=== PATIENT | female | born 1970 | race Caucasian/White ===

== ENCOUNTER 2017-05-15 01:11 | Emergency (ER) | payer MEDICAID, SELFPAY ==
[2017-05-15 01:24] VITALS: BP 133/81; PULSE 72; RESP 18; TEMP 36.9; O2SAT 100; BMI 34.4
--- NOTE | 2017-05-15 01:43 | HMH.EDGENADL ---
ED Disposition Clinical Impression: Abscess of skin or subcutaneous tissue Qualifiers: Site of cutaneous abscess: extremity Site of cutaneous abscess of extremity: lower extremity Laterality: left Qualified Code(s): L02.416 - Cutaneous abscess of left lower limb Disposition: Home, Self-Care Condition on Discharge: Good Instructions: DI for Skin Abscess Additional Instructions: Additional instructions for ABSCESS: Day one and two: Remove the bandage and shower the area, leaving the packing in place. Gently blot dry. Apply a bandage. Day three: Follow-up with primary care physician, clinic, or Urgent [facility] for packing removal and culture results. Return to the emergency department if increasing pain, swelling, redness, redstreaks or fever greater than 101 degrees. Prescriptions: Clindamycin HCl [Clindamycin 300mg Cap] 300 mg PO QID #40 capsule Referrals: Asha Andrews APRN [Primary Care Provider] - - Critical Care Critical Care Time: No Attestation: On , the high probability of a clinically significant, sudden or life threatening deterioration of the following system(s) required my full and direct attention, intervention and personal management. The time I documented below is in addition to time spent performing reported procedures but includes the following listed in this critical care notation. Medical Decision Making Vital Signs: 05/15/17 01:24 Temperature 98.4 F Temperature Source Oral Pulse Rate [Right Brachial] 72 Respiratory Rate 18 Blood Pressure [Right Arm] 133/81 Blood Pressure Mean [Right Arm] 98 Blood Pressure Source [Right Arm] Automatic Cuff Blood Pressure Position [Right Arm] Sitting 02 Sat by Pulse Oximetry 100 Oxygen Delivery Method Room Air Orders (Tests/Meds): ED MEDICATIONS Discontinued Medications Generic Name Dose Route Start Last Admin Trade Name Lindsey PRN Reason Stop Dose Admin Clindamycin HCl 300 mg 05/15/17 02:33 Cleocin 150mg Capsule PO 05/15/17 02:34 ONCE ONE Lidocaine/Epinephrine 10 ml 05/15/17 01:49 Lidocaine 2% W/Epi 1:100,000 20ml Vial IJ 05/15/17 01:50 ONCE ONE ORDERS Category Date Time Status Wound Culture and Gram Stain Stat Micro 05/15/17 02:25 Received - Ryan Inquiry Pt receiving controlled substance: No General Adult HPI - General Chief complaint: Skin/Abscess/Foreign Body Stated complaint: BIOPSY SPOT LEFT LEG ? INFECTED Mode of Arrival: Ambulatory Limitations: No Limitations Description of Symptoms (Recalled from ER Triage Doc. by RN): C/O RASH AND HAD BIOPSY OF RASH ON LEFT LOWER LEG ON 05/05/17. SUTURES REMOVED ON 05/12/17. NOW WITH C/O POSSIBLE INFECTION TO BIOPSY SITE AND PAIN - History of Present Illness HPI narrative: The patient had a biopsy on her left leg due to a rash. She had stitches removed 5 days ago. 2 days ago she began having increasing redness, swelling and pain around the site of the biopsy. No fever. No drainage. - Related Data Home Medications Medication Instructions Recorded Confirmed Cetirizine HCl [Zyrtec] 10 mg PO DAILY 05/15/17 05/15/17 Cholecalciferol (Vitamin D3) 5,000 unit PO DAILY 05/15/17 05/15/17 [Vitamin D3 1,000 Unit Tab] Esomeprazole Magnesium [Nexium 40 mg PO DAILY 05/15/17 05/15/17 24Hr] Lisinopril [Lisinopril 10mg Tab] 10 mg PO DAILY 05/15/17 05/15/17 Lysine HCl [l-Lysine] 500 mg PO DAILY 05/15/17 05/15/17 Oxybutynin Chloride [Ditropan Xl] 5 mg PO DAILY 05/15/17 05/15/17 buPROPion HCl [Wellbutrin Xl] 450 mg PO DAILY 05/15/17 05/15/17 Previous Rx's Medication Instructions Recorded Clindamycin HCl [Clindamycin 300mg 300 mg PO QID #40 cap 05/15/17 Cap] Allergies Allergy/AdvReac Type Severity Reaction Status Date / Time No Known Allergies Allergy Verified 05/15/17 01:40 [facility] History I have reviewed the patient's past medical history: Yes Medical History: Denies:: Cancer, Diabetes Mellitus Type 1, Diabetes Mellit
== END 2017-05-15 03:07 | disposition home or self-care (01) ==
PROVIDERS: Emergency Provider Emergency Medicine; Family Provider Nurse Practitioner Family; PCP Nurse Practitioner Family
DX: L02.416 Cutaneous abscess of left lower limb (principal); I10 Essential (primary) hypertension
CPT/HCPCS: 10060; 87070; 87077; 87186; 87205; 99282; 99283

== ENCOUNTER → 2017-09-19 10:18 | Outpatient (CLI) | payer MEDICAID, SELFPAY ==
--- NOTE | 2017-09-19 10:22 | MM_ITS ---
MM Dig screening mamm BI w/CAD CAD Screening COMPARISON: Digital mammograms 09/17/2013 and analog mammograms 11/25/2009 INDICATION: The history sheet is not available for review TECHNIQUE: Standard CC and MLO images were obtained. R2 CAD reviewed. FINDINGS: The breasts are composed primarily of fat with minimal scattered fibroglandular densities noted. There is no interval change from the previous digital mammograms 09/17/2013 there is no suspicious lesion and there are no suspicious microcalcifications. There is a possible asymmetric density central portion of the left breast best seen on MLO projection and possibly in the outer quadrant of the breast on the CC projection. Recommend the patient return for spot compression MLO view and 90 degrees lateral view and spot CC view. Ultrasound may be necessary as well IMPRESSION: Fatty type breast parenchyma with possible asymmetric density left breast BI-RADS Category: 0 Need Additional Imaging Evaluation RECOMMENDED FOLLOW-UP: IMM - IMMEDIATE FOLLOW-UP RECOMMENDED (A letter has been sent to the patient regarding results of the study.)
== END ==
PROVIDERS: Family Provider Nurse Practitioner Family; PCP Nurse Practitioner Family; Visit Provider Nurse Practitioner Family
DX: Z12.31 Encounter for screening mammogram for malignant neoplasm of breast (principal)
CPT/HCPCS: 77067

== ENCOUNTER → 2017-10-12 14:55 | Outpatient (CLI) | payer MEDICAID, SELFPAY ==
--- NOTE | 2017-10-12 14:58 | MM_ITS ---
MM Dig mamm DX unilat LT CAD COMPARISON: Digital mammograms with CAD 09/19/2017 INDICATION: Evaluation of possible asymmetric density left breast TECHNIQUE: Spot compression MLO and CC views and 90 degrees lateral view FINDINGS: The previous noted questionable lesion appears to compress out on the additional views and there is no suspicious abnormality seen in this lady with primarily fatty type breast parenchyma. IMPRESSION: Negative problem-solving views recommend the patient continue with yearly screening mammography BI-RADS Category: 1 Negative RECOMMENDED FOLLOW-UP: 1YR - 1 YEAR FOLLOW-UP (A letter has been sent to the patient regarding results of the study.)
== END ==
PROVIDERS: Family Provider Nurse Practitioner Family; PCP Nurse Practitioner Family; Visit Provider Nurse Practitioner Family
DX: R92.2 Inconclusive mammogram (principal)
CPT/HCPCS: 77065

== ENCOUNTER → 2018-02-09 15:36 | Outpatient (CLI) | payer MEDICAID, SELFPAY ==
--- NOTE | 2018-02-09 15:38 | MR_ITS ---
MR lumbar spine wo con, MR 3-d myelogram/MRCP HISTORY: PT states low back pain, RT buttock and leg pain . RT leg and feet tingling. ITS.REASON: LOW BACK PAIN, RADICULOPATHY, SCIATICA ORDERING PHYSICIAN: Shari Birmingham PATIENT AGE: 47 years Comparison: None TECHNIQUE: Standard multiplanar multiecho sequences are performed without contrast. 3-D MIP and myelographic images are also rendered and reviewed FINDINGS: There is normal alignment. The spinal cord ends at the L1 level. T11-T12, T12-L1, and L1-L2 evident unremarkable appearance. L2-L3: Minimal concentric bulging disc with mild facet and ligamentum flavum hypertrophy with mild bilateral lateral recess and foraminal narrowing slightly greater on the right. L3-L4: Minimal concentric bulging disc with mild facet and ligamentum flavum hypertrophy with mild bilateral lateral recess and foraminal narrowing slightly greater on the left L4-5: Mild concentric bulging disc along with mild facet and ligamentum flavum hypertrophy with mild bilateral lateral recess and foraminal narrowing slightly greater on the right L5-S1: Mild concentric bulging disc along with facet and ligamentum hypertrophy. The bulging disc is eccentric towards the right causing moderate right lateral recess and foraminal narrowing abutting the anterior aspect of the right S1 nerve root. There is mild left foraminal narrowing and left lateral recess narrowing as well. No disc herniation or bony canal stenosis evident. IMPRESSION: 1. Multilevel mild bulging disc along with facet and ligamentum flavum hypertrophy causing lateral recess and foraminal narrowing. Please see above for detailed description at each level. 2. Mild concentric bulging disc at L5-S1 along with facet and ligamentum hypertrophy. The bulging disc is eccentric towards the right causing moderate right lateral recess and foraminal narrowing abutting the anterior aspect of the right S1 nerve root. There is mild left foraminal narrowing and left lateral recess narrowing as well 3. No disc herniation or canal stenosis
== END ==
PROVIDERS: Family Provider Nurse Practitioner Family; PCP Nurse Practitioner Family; Visit Provider Nurse Practitioner Family
DX: M54.17 Radiculopathy, lumbosacral region (principal); M54.31 Sciatica, right side
CPT/HCPCS: 72148; 76376

== ENCOUNTER 2018-03-14 16:30 | Outpatient (RCR) | payer MEDICAID, SELFPAY | END 2018-03-14 17:30 | disposition home or self-care (01) | LOC: PT 16:30 | PROVIDERS: Visit Provider Nurse Practitioner Family | DX: M54.5 Low back pain (principal); M51.36 Other intervertebral disc degeneration, lumbar region | CPT/HCPCS: 97010; 97012; 97014; 97110; 97140; 97163; 97164; G0283 ==

== ENCOUNTER → 2018-07-17 14:46 | Outpatient (POV) | payer MEDICAID, SELFPAY ==
[2018-07-17 15:13] VITALS: BP 122/78; PULSE 76; RESP 18; O2SAT 98
--- NOTE | 2018-07-18 13:58 | HMH.PMCON ---
Assessment and Plan (1) Degenerative disc disease, lumbar Current visit: Yes Status: Chronic Category: Medical Code(s): M51.36 - Other intervertebral disc degeneration, lumbar region (2) Lumbar radiculopathy Current visit: Yes Status: Chronic Category: Medical Code(s): M54.16 - Radiculopathy, lumbar region - Assessment and plan all Dx Assessment and Plan for all problems:: We will schedule an L4-L5 lumbar epidural steroid injection with the patient. I believe it would be beneficial. I will follow-up with the patient after her injection and reassess her symptoms at that time. Dr. Fitch has reviewed this note and agrees with this plan of care. This note was dictated using voice recognition software and may contain errors or omissions HPI - Data of Consult Consult date: 07/17/18 Requesting Physician: Daniela Hancock APRN Primary Care Provider: Asha Andrews APRN - Consult Narrative Reason for consult: Back pain History of present illness: Ms. Hernández is a 47 year old female who presents today for consultation in regards to her low back pain and right leg pain. Patient states standing and bending increases her pain while leaning over and rest decreases her pain she has numbness and tingling in her right leg. Patient has done physical therapy with minimal relief she is continuing a home stretching therapy. Patient is on anti-inflammatories. She rates her pain a 5 out of 10. She is not a surgical candidate at this time. Patient does have imaging showing degenerative disc disease lumbar spine. Patient has not had any epidural injections she is interested in pursuing this. CC: Daniela Hancock APRN [facility] [place] History I have reviewed the patient's past medical history: Yes Medical History: Reports:: Hyperlipidemia, Hypertension Denies:: Cancer, Diabetes Mellitus Type 1, Diabetes Mellitus Type 2, MRSA Laterality Cases: Right: Arthroscopy Knee Amputation: No Fractures: No - *Social History Smoking Status: Unknown if ever smoked Alcohol Intake: never *Occupational Status:: employed Housing: house Household Members: other *Travel in the last 8 weeks: None - Psychiatric History Expresses thoughts of harming self/others: None Suicide Plan Description: No Plan Family Hx:: Unable to obtain Review of Systems - Review of Systems ROS General: no recent weight change, no fever, no sleep disturbances Respiratory: no cough, no shortness of air, no recurring pulmonary infections Cardiovascular/Peripheral Vascular: No chest pain, No palpitations, no edema, no shortness of breath. Gastrointestinal: no incontinence, normal bowel movements reported Genitourinary: no incontinence Musculoskeletal: Back pain, right leg pain Psychiatric: normal mood/ affect Neurological: [denies weakness in extremities], [denies balance issues] Meds Home Medications Medication Instructions Recorded Confirmed Type Cetirizine HCl [Zyrtec] 10 mg PO DAILY 05/15/17 12/31/17 History Cholecalciferol (Vitamin D3) 5,000 unit PO DAILY 05/15/17 12/31/17 History [Vitamin D3 1,000 Unit Tab] Esomeprazole Magnesium [Nexium 40 mg PO DAILY 05/15/17 12/31/17 History 24Hr] Lisinopril [Lisinopril 10mg Tab] 10 mg PO DAILY 05/15/17 12/31/17 History Lysine HCl [l-Lysine] 500 mg PO DAILY 05/15/17 12/31/17 History Oxybutynin Chloride [Ditropan Xl] 5 mg PO DAILY 05/15/17 12/31/17 History buPROPion HCl [Wellbutrin Xl] 450 mg PO DAILY 05/15/17 12/31/17 History Meloxicam [Mobic] 15 mg PO DAILY 12/31/17 12/31/17 History Allergies Allergy/AdvReac Type Severity Reaction Status Date / Time No Known Allergies Allergy Verified 12/31/17 23:18 Objective Vital signs: Pulse Resp BP Pulse Ox 76 18 122/78 98 07/17/18 15:13 07/17/18 15:13 07/17/18 15:13 07/17/18 15:13 Narrative: Physical Exam General: Alert and oriented x3, no acute distress, pleasant and cooperative, [on room air] Lungs: Resps E/U,
== END ==
PROVIDERS: PCP Nurse Practitioner Family; Visit Provider Clinical Nurse Specialist Family Health
DX: M51.16 Intervertebral disc disorders with radiculopathy, lumbar region (principal)
CPT/HCPCS: 99202

== ENCOUNTER → 2018-08-21 09:58 | Outpatient (POV) | payer MEDICAID, SELFPAY ==
[2018-08-21 10:43] VITALS: BP 156/91; PULSE 67; RESP 18; O2SAT 98; BMI 38.3
--- NOTE | 2018-08-21 10:43 | HMH.PAINSOAP ---
[facility] Pain Management SOAP Note Subjective:: Patient is a pleasant 47-year-old white female who we are treating for low back pain with lumbar radiculopathy symptoms. Patient is status post her first L4-L5 lumbar epidural steroid injection she rates the pain a 2 out of 10 and states she did extremely well. She does have some days where she feels like the pain is returning she would like to repeat this given the efficacy of this she has had at least 80% relief of her symptoms. ROS General: no recent weight change, no fever, no sleep disturbances Respiratory: no cough, no shortness of air, no recurring pulmonary infections Cardiovascular/Peripheral Vascular: No chest pain, No palpitations, no edema, no shortness of breath. Gastrointestinal: no incontinence, normal bowel movements reported Genitourinary: no incontinence Musculoskeletal: Back pain, leg pain Psychiatric: normal mood/ affect Neurological: [denies weakness in extremities], [denies balance issues] Objective:: Physical Exam General: Alert and oriented x3, no acute distress, pleasant and cooperative, Lungs: Resps E/U, Symmetrical chest expansion, Eyes: PERRL Musculoskeletal: Flexion and extension of lumbar spine somewhat guarded secondary to pain, deep tendon reflexes normal, strength in upper and lower extremities [5/5], [abnormal gait noted] positive straight raise leg raise test on the right side at 30 degrees Neurological: speech clear, 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 I believe it would be beneficial given the efficacy of her last one. She is continuing her anti-inflammatories along with her home stretching program. She is not on any anticoagulation therapy. Dr. Fitch has reviewed this note and agrees with this plan of care. This note was dictated using voice recognition software and may contain errors or omissions
--- NOTE | 2018-08-21 10:46 | P.CONS_ITS ---
[facility] Pain Management SOAP Note Subjective:: Patient is a pleasant 47-year-old white female who we are treating for low back pain with lumbar radiculopathy symptoms. Patient is status post her first L4-L5 lumbar epidural steroid injection she rates the pain a 2 out of 10 and states she did extremely well. She does have some days where she feels like the pain is returning she would like to repeat this given the efficacy of this she has had at least 80% relief of her symptoms. ROS General: no recent weight change, no fever, no sleep disturbances Respiratory: no cough, no shortness of air, no recurring pulmonary infections Cardiovascular/Peripheral Vascular: No chest pain, No palpitations, no edema, no shortness of breath. Gastrointestinal: no incontinence, normal bowel movements reported Genitourinary: no incontinence Musculoskeletal: Back pain, leg pain Psychiatric: normal mood/ affect Neurological: [denies weakness in extremities], [denies balance issues] Objective:: Physical Exam General: Alert and oriented x3, no acute distress, pleasant and cooperative, Lungs: Resps E/U, Symmetrical chest expansion, Eyes: PERRL Musculoskeletal: Flexion and extension of lumbar spine somewhat guarded secondary to pain, deep tendon reflexes normal, strength in upper and lower extremities [5/5], [abnormal gait noted] positive straight raise leg raise test on the right side at 30 degrees Neurological: speech clear, business support equal, no gross sensory deficits Assessment:: Degenerative disc disease lumbar spine with lumbar radiculopathy symptoms Plan:: We will repeat her L4-L5 lumbar epidural steroid injection. I believe it would be beneficial given the efficacy of her last one. She is continuing her anti- inflammatories along with her home stretching program. She is not on any anticoagulation therapy. Dr. Fitch has reviewed this note and agrees with this plan of care. This note was dictated using voice recognition software and may contain errors or omissions
== END ==
PROVIDERS: PCP Nurse Practitioner Family; Visit Provider Clinical Nurse Specialist Family Health
DX: M51.16 Intervertebral disc disorders with radiculopathy, lumbar region (principal)
CPT/HCPCS: 99212

== ENCOUNTER → 2018-09-19 09:56 | Outpatient (POV) | payer MEDICAID, SELFPAY ==
[2018-09-19 10:11] VITALS: BP 129/88; PULSE 71; RESP 18; O2SAT 98; BMI 36.8
--- NOTE | 2018-09-19 10:21 | P.CONS_ITS ---
[facility] Pain Management SOAP Note Subjective:: Patient is a pleasant 48-year-old female who presents today for follow-up after her second epidural steroid injection. She rates the pain a 4 out of 10. She is having some increased right leg pain however that just began this morning. Patient overall doing much better she states she gets up to 80% relief with her epidural injections for up to 3 weeks. She would like to finish the series of 3. ROS General: no recent weight change, no fever, no sleep disturbances Respiratory: no cough, no shortness of air, no recurring pulmonary infections Cardiovascular/Peripheral Vascular: No chest pain, No palpitations, no edema, no shortness of breath. Gastrointestinal: no incontinence, normal bowel movements reported Genitourinary: no incontinence Musculoskeletal: Back pain, leg pain Psychiatric: normal mood/ affect Neurological: [denies weakness in extremities], [denies balance issues] Objective:: Physical Exam General: Alert and oriented x3, no acute distress, pleasant and cooperative, [on room air] Lungs: Resps E/U, Symmetrical chest expansion, Eyes: PERRL Musculoskeletal: Flexion and extension of lumbar spine somewhat guarded secondary to pain, deep tendon reflexes normal, strength in upper and lower extremities [5/5], slightly antalgic gait noted Neurological: speech clear, 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 She is not on any anticoagulation therapy. I will follow-up with her after her injection reassess her symptoms at that time. She is been instructed to call the office if she has any issues prior to her next appointment. Dr. Fitch has reviewed this note and agrees with this plan of care. This note was dictated using voice recognition software and may contain errors or omissions
== END ==
PROVIDERS: PCP Nurse Practitioner Family; Visit Provider Clinical Nurse Specialist Family Health
DX: M51.16 Intervertebral disc disorders with radiculopathy, lumbar region (principal)
CPT/HCPCS: 99212

== ENCOUNTER 2018-10-06 08:59 | Day surgery (SDC) | payer MEDICAID, SELFPAY ==
[2018-10-06 09:09] VITALS: BP 138/82; PULSE 80; RESP 16; TEMP 36.8; O2SAT 99; BMI 31.1
[2018-10-06 09:21] VITALS: BP 117/74; PULSE 81; RESP 18; TEMP 36.7; O2SAT 100; BMI 36.8
[2018-10-06 10:00] VITALS: BP 131/85; PULSE 70; RESP 18; O2SAT 98
[2018-10-06 10:01] VITALS: BP 132/87; PULSE 72; RESP 18; O2SAT 98
--- NOTE | 2018-10-06 10:01 | HMH.PMPROC ---
- Procedure Date: 10/06/18 Time: 10:01 Anesthesiologist:: Pal Fitch MD Complications:: None Pre-procedure Diagnosis:: Degenerative disc disease of lumbar spine with lumbar radiculopathy symptoms Post-procedure Diagnosis:: Same Indications for Procedure:: This patient is a pleasant 48-year-old white female who we are treating for low back pain with lumbar radiculopathy symptoms. She did very well with her second epidural steroid injection. She was 80% better. She still has some residual pain. We will do a third lumbar epidural steroid injection today to help her with her residual pain symptoms. Procedure Details:: Lumbar epidural steroid injection under fluoroscopy Informed consent was obtained and the risk and benefits of the procedure was explained to the patient. The patient was taken to the procedure room. The patient was placed prone on the procedure table. The patient was prepped and draped in sterile fashion. C-arm fluoroscopy was used to view the lumbar spine. Skin and subcutaneous tissues were anesthetized using lidocaine. I placed an 18-gauge epidural needle and advanced into the L4-L5 interspace using fluoroscopic guidance and [id number] to air. After confirmation of needle placement in the epidural space with dye I injected 2 mL of lidocaine 1.5% with Depo-Medrol 80 mg. Patient tolerated the procedure well with no complications. Plan and Disposition:: We will follow-up with her in 2 weeks. Will reevaluate symptoms at that time.
[2018-10-06 10:07] VITALS: BP 142/82; PULSE 71; RESP 16; TEMP 36.8; O2SAT 100
== END 2018-10-06 10:12 | disposition home or self-care (01) ==
LOC: SC.PAINP 09:00
PROVIDERS: PCP Nurse Practitioner Family; Visit Provider Anesthesiology
DX: M51.16 Intervertebral disc disorders with radiculopathy, lumbar region (principal)
CPT/HCPCS: 62323; J1040; Q9966

== ENCOUNTER → 2018-10-24 10:03 | Outpatient (POV) | payer MEDICAID, SELFPAY ==
[2018-10-24 10:38] VITALS: BP 143/91; PULSE 80; RESP 18; O2SAT 98; BMI 28.8
--- NOTE | 2018-10-24 12:18 | HMH.PAINSOAP ---
[facility] Pain Management SOAP Note Subjective:: Patient is a pleasant 48-year-old white female who presents today for follow-up of a lumbar epidural steroid injection. She is currently being treated for low back pain with lumbar radiculopathy. The patient has had 3 epidural steroid injections. With her first injection, she reports a three-week improvement in pain, and the same with the second injection. With her most recent injection, she reports that she had 2 weeks improvement in pain, with 80% relief. Today, however, she presents with new onset of pain to right lower back radiating into her right leg. She says that the pain worsens with ambulation and is different than the previous pain. She has attempted to use ice and heat, a home stretching program, as well as anti-inflammatories. She rates her pain a 6 out of 10 today. ROS General: no recent weight change, no fever, no sleep disturbances Respiratory: no cough, no shortness of air, no recurring pulmonary infections Cardiovascular/Peripheral Vascular: No chest pain, No palpitations, no edema, no shortness of breath. Gastrointestinal: no incontinence, normal bowel movements reported Genitourinary: no incontinence Musculoskeletal: [Back pain leg pain] Psychiatric: normal mood/ affect, [denies depression], [denies anxiety] Neurological: [denies weakness in extremities], [denies balance issues] Objective:: Physical Exam General: Alert and oriented x3, no acute distress, pleasant and cooperative, [on room air] Lungs: Resps E/U, Symmetrical chest expansion, Eyes: PERRL Musculoskeletal: Flexion and extension of bar spine somewhat guarded secondary to pain, deep tendon reflexes normal, strength in upper and lower extremities [5/5], [abnormal gait noted] positive Govind's test positive Joleen test positive SI joint compression test on the right side Neurological: speech clear, 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 Patient would benefit from this given her symptomology. We will schedule her for the procedure and follow-up with her afterwards to assess her symptoms at that time. She is been instructed to call the office if she has any questions or concerns prior to her next appointment. Dr. Fitch has reviewed this note and agrees with this plan of care. This note was dictated using voice recognition software and may contain errors or omissions
== END ==
PROVIDERS: PCP Nurse Practitioner Family; Visit Provider Clinical Nurse Specialist Family Health
DX: M51.16 Intervertebral disc disorders with radiculopathy, lumbar region (principal); M46.1 Sacroiliitis, not elsewhere classified
CPT/HCPCS: 99212

== ENCOUNTER → 2018-11-28 11:48 | Outpatient (POV) | payer MEDICAID, SELFPAY ==
[2018-11-28 11:57] VITALS: BP 140/78; PULSE 78; RESP 18; O2SAT 98; BMI 29.8
--- NOTE | 2018-11-28 12:02 | P.CONS_ITS ---
[facility] Pain Management SOAP Note Subjective:: Patient is a pleasant 48-year-old white female who presents today for follow-up. She is being treated for low back pain with radicular symptoms and pain to her right buttock. Patient had a recent SI joint injection and says that she got about 80% relief that lasted for about 5 days. She is now complaining of right hip pain and right buttock pain. Patient has also had lumbar epidural injections, for which she says that did not help with her pain in her right buttock. She would like to try another SI joint injection. She does rate her pain a 5 out of 10 today. She is continuing with anti-inflammatories and home stretching program. She does say that the home stretching program does seem to help her somewhat, but again she is not doing the exercises her pain returns. Patient's job entails sitting for prolonged periods. She says that she does try to stand and move around to ease the pain, but she is limited due to her job. Review of Systems General: No recent weight changes, no fever, no sleep disturbances Respiratory: No cough, no shortness of air, no recurring pulmonary infections Cardiovascular/peripheral vascular: No chest pain, no palpitations, no edema, no shortness of breath Gastrointestinal: No new onset incontinence, normal bowel movements reported Genitourinary: No new onset incontinence Musculoskeletal: Back pain, right buttock pain, right hip pain Psychiatric: Normal mood/affect Neurological: [Denies weakness in extremities], [denies balance issues] Objective:: Physical exam General: Alert and oriented x3, no acute distress, pleasant and cooperative, [on room air] Lungs: Respirations even and unlabored, symmetrical chest expansion Eyes: PERRL Musculoskeletal: Flexion and extension of lumbar spine somewhat guarded secondary to pain, deep tendon reflexes normal, strength in upper and lower extremities [5/5], slightly antalgic gait noted Neurological: Speech clear, accounts receivable coordinator equal, no gross sensory deficit Assessment:: Degenerative disc disease lumbar spine with lumbar radiculopathy, sacroiliitis, right greater trochanteric bursitis Plan:: We will schedule the patient for another right SI joint injection, along with a right greater trochanteric bursa injection. She did well with this previous injection, getting 80% relief. I think she would benefit from another injection. We will schedule her for the procedure and see her back in the office afterwards, to reassess her symptoms at that time. She is been instructed to call the office if she has any concerns prior to her next appointment. Dr. Fitch has reviewed this note and agrees with this plan of care. This note was dictated using voice recognition software and make contain errors or omissions.
== END ==
PROVIDERS: PCP Nurse Practitioner Family; Visit Provider Clinical Nurse Specialist Family Health
DX: M51.16 Intervertebral disc disorders with radiculopathy, lumbar region (principal); M46.1 Sacroiliitis, not elsewhere classified; M70.61 Trochanteric bursitis, right hip
CPT/HCPCS: 99212

== ENCOUNTER → 2019-01-01 15:45 | Outpatient (POV) | payer MEDICAID, SELFPAY ==
[2019-01-01 15:46] VITALS: BP 148/91; PULSE 68; RESP 18; O2SAT 98; BMI 36.8
--- NOTE | 2019-01-01 16:05 | HMH.PAINSOAP ---
[facility] Pain Management SOAP Note Subjective:: Patient is a pleasant 48-year-old white female who presents today for follow-up. She is being treated for low back pain and radicular symptoms along with pain in her right hip. She had a recent SI joint injections where she got 80% relief that lasted for several weeks. She is now complaining of right hip pain and right buttock pain. She is also had epidural injections that did not help as much. She would like to try another SI joint injection which I believe would be beneficial. She rates her pain a 5 out of 10 today. She is continuing anti-inflammatories and home stretching programs. She finished physical therapy earlier this year. She has had this pain for over 6 months. Patient's job entails sitting for long periods of time. ROS General: no recent weight change, no fever, no sleep disturbances Respiratory: no cough, no shortness of air, no recurring pulmonary infections Cardiovascular/Peripheral Vascular: No chest pain, No palpitations, no edema, no shortness of breath. Gastrointestinal: no incontinence, normal bowel movements reported Genitourinary: no incontinence Musculoskeletal: Right SI joint pain Psychiatric: normal mood/ affect Neurological: [denies weakness in extremities], [denies balance issues] Objective:: Physical Exam General: Alert and oriented x3, no acute distress, pleasant and cooperative, [on room air] Lungs: Resps E/U, Symmetrical chest expansion, Eyes: PERRL Musculoskeletal: Flexion and extension of lumbar spine somewhat guarded secondary to pain, deep tendon reflexes normal, strength in upper and lower extremities [5/5], antalgic gait noted, positive SI joint compression test positive Joleen test and positive Govind's test on the right side. 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 She may be a quarter lock candidate in the future. We discussed this briefly. She had good relief with her previous injections. Patient is continuing her anti-inflammatory regimen. I will follow-up with the patient after injection reassess her symptoms at that time she is instructed to call the office if she has any issues prior to her next appointment. Dr. Fitch has reviewed this note and agrees with this plan of care. This note was dictated using voice recognition software and may contain errors or omissions Pain Management Hx Components *Have you ever received a pneumonia vaccine?: No *Have you received a flu vaccine this season?: No - *Social History *Occupational Status:: other *Travel in the last 8 weeks: None
== END ==
PROVIDERS: PCP Nurse Practitioner Family; Visit Provider Clinical Nurse Specialist Family Health
DX: M51.16 Intervertebral disc disorders with radiculopathy, lumbar region (principal)
CPT/HCPCS: 99212

== ENCOUNTER → 2019-02-01 08:49 | Outpatient (POV) | payer MEDICAID, SELFPAY ==
[2019-02-01 09:27] VITALS: BP 131/80; PULSE 74; RESP 15; O2SAT 99; BMI 37.0
--- NOTE | 2019-02-01 09:53 | HMH.PAINSOAP ---
[facility] Pain Management SOAP Note Subjective:: Date of service 02/01/2019 Patient is a pleasant 48-year-old white female who presents today for follow-up. Patient is being treated for low back pain with lumbar radiculopathy symptoms to her right hip. Patient says that this has been ongoing for greater than a year. Patient has had an SI joint injection in the past where she got up to 80% relief for more than 3 weeks. Patient was scheduled for another SI joint injection, however, she was denied by her insurance. Patient says that her pain is getting worse, rating it a 7 out of 10 today. Patient says she is unable to stand and able to do dishes and is able to do activities. Patient says that it is taking her quality of life away. Patient says she does not understand that she is unable to get the injections patient is neuro with anti-inflammatories and home stretching program. She is also taking relief. She tried ice and heat therapies. Patient says she would just like some relief. Patient has done little to no relief with conservative therapies. Review of Systems General: No recent weight changes, no fever, no sleep disturbances Respiratory: No cough, no shortness of air, no recurring pulmonary infections Cardiovascular/peripheral vascular: No chest pain, no palpitations, no edema, no shortness of breath Gastrointestinal: No new onset incontinence, normal bowel movements reported Genitourinary: No new onset incontinence Musculoskeletal: Back pain, right hip pain Psychiatric: Normal mood/affect Neurological: [Denies weakness in extremities], [denies balance issues] Objective:: Physical exam General: Alert and oriented x3, no acute distress, pleasant and cooperative, [on room air] Lungs: Respirations even and unlabored, symmetrical chest expansion Eyes: PERRL Musculoskeletal: Flexion and extension of lumbar spine somewhat guarded secondary to pain, deep tendon reflexes normal, strength in upper and lower extremities [5/5], antalgic gait noted, positive test, positive distraction test, positive compression test Neurological: Speech clear, chassis driver equal, no gross sensory deficit Assessment:: Right sacroiliitis and right trochanteric bursitis Plan:: The patient has tried and failed conservative therapies. The patient is getting very stressed, as she is unable to perform any normal functions as before. Patient is notably in pain today during her assessment. I do think medically beneficial to the patient to receive a right SI joint injection and a right bursa injection. The therapies that she has continued with her anti-inflammatories, [id number] oral medications ice and heat therapies, and a home stretching program. She does have notable point tenderness noted over her right SI joint and her right hip. We will try to schedule patient again for a right SI joint injection and right trochanteric bursa injection. We will see the patient back in clinic following the procedure to reassess her symptoms. She has been instructed to contact the clinic if she has any concerns before her next appointment. Dr. Fitch has reviewed this note and agrees with this plan of care. This note was dictated using voice recognition software and make contain errors or omissions. [facility] History Medical History: Reports:: Hyperlipidemia, Hypertension Denies:: Cancer, Diabetes Mellitus Type 1, Diabetes Mellitus Type 2, MRSA, Seizures *Have you ever received a pneumonia vaccine?: No *Have you received a flu vaccine this season?: No Other Medical History: Denies: Blood Transfusion Reaction Laterality Cases: Right: Arthroscopy Knee Amputation: No Fractures: No - *Social History Smoking Status: Never smoker Alcohol Intake: never *Occupational Status:: other Housing: house Household Members: significant other *Travel in the last 8 weeks: None Family Hx:: Unable to obtain
--- NOTE | 2019-02-01 09:58 | P.CONS_ITS ---
[facility] Pain Management SOAP Note Subjective:: Date of service 02/01/2019 Patient is a pleasant 48-year-old white female who presents today for follow-up. Patient is being treated for low back pain with lumbar radiculopathy symptoms to her right hip. Patient says that this has been ongoing for greater than a year. Patient has had an SI joint injection in the past where she got up to 80% relief for more than 3 weeks. Patient was scheduled for another SI joint injection, however, she was denied by her insurance. Patient says that her pain is getting worse, rating it a 7 out of 10 today. Patient says she is unable to stand and able to do dishes and is able to do activities. Patient says that it is taking her quality of life away. Patient says she does not understand that she is unable to get the injections patient is neuro with anti-inflammatories and home stretching program. She is also taking relief. She tried ice and heat therapies. Patient says she would just like some relief. Patient has done little to no relief with conservative therapies. Review of Systems General: No recent weight changes, no fever, no sleep disturbances Respiratory: No cough, no shortness of air, no recurring pulmonary infections Cardiovascular/peripheral vascular: No chest pain, no palpitations, no edema, no shortness of breath Gastrointestinal: No new onset incontinence, normal bowel movements reported Genitourinary: No new onset incontinence Musculoskeletal: Back pain, right hip pain Psychiatric: Normal mood/affect Neurological: [Denies weakness in extremities], [denies balance issues] Objective:: Physical exam General: Alert and oriented x3, no acute distress, pleasant and cooperative, [on room air] Lungs: Respirations even and unlabored, symmetrical chest expansion Eyes: PERRL Musculoskeletal: Flexion and extension of lumbar spine somewhat guarded secondary to pain, deep tendon reflexes normal, strength in upper and lower extremities [5/5], antalgic gait noted, positive test, positive distraction test, positive compression test Neurological: Speech clear, electronics recycler equal, no gross sensory deficit Assessment:: Right sacroiliitis and right trochanteric bursitis Plan:: The patient has tried and failed conservative therapies. The patient is getting very stressed, as she is unable to perform any normal functions as before. Patient is notably in pain today during her assessment. I do think medically beneficial to the patient to receive a right SI joint injection and a right bursa injection. The therapies that she has continued with her anti- inflammatories, [id number] oral medications ice and heat therapies, and a home stretching program. She does have notable point tenderness noted over her right SI joint and her right hip. We will try to schedule patient again for a right SI joint injection and right trochanteric bursa injection. We will see the patient back in clinic following the procedure to reassess her symptoms. She has been instructed to contact the clinic if she has any concerns before her next appointment. Dr. Fitch has reviewed this note and agrees with this plan of care. This note was dictated using voice recognition software and make contain errors or omissions. [facility] History Medical History: Reports:: Hyperlipidemia, Hypertension Denies:: Cancer, Diabetes Mellitus Type 1, Diabetes Mellitus Type 2, MRSA, Seizures *Have you ever received a pneumonia vaccine?: No *Have you received a flu vaccine this season?: No Other Medical History: Denies: Blood Transfusion Reaction Laterality Cases: Right: Arthroscopy Knee Amputation: No
== END ==
PROVIDERS: PCP Nurse Practitioner Family; Visit Provider Clinical Nurse Specialist Family Health
DX: M46.1 Sacroiliitis, not elsewhere classified (principal); M70.61 Trochanteric bursitis, right hip
CPT/HCPCS: 99212

== ENCOUNTER → 2019-02-26 13:34 | Outpatient (CLI) | payer MEDICAID, SELFPAY ==
--- NOTE | 2019-02-26 13:39 | MM_ITS ---
PROCEDURE: MM DIG MAMM DX UNILAT RT CAD CLINICAL INDICATION: ABN MAMM Additional views right breast for possible new asymmetric density COMPARISON: [facility] MM Dig screening mamm BI w/CAD from 09/19/2017 DXLT MM Dig mamm DX unilat LT CAD from 10/12/2017 MM DIG SCREENING MAMM BI W/CAD from 02/13/2019 TECHNIQUE: Standard CC and MLO images were obtained. R2 CAD reviewed. FINDINGS: Spot-compression MLO and CC views were obtained along the 90 degree lateral view. The density has well-defined smooth borders and was shown to be a tiny possibly complex cyst on ultrasound. I believe no additional evaluation is indicated. IMPRESSION: Essentially negative problem solving views and ultrasound as well BI-RAD Category: 2 Benign Finding(s) FOLLOW-UP: 1YR 1 Year Follow-up (A letter has been sent to the patient regarding results of the study.) Dictated by: Dr. Franco Galan MD 03/04/2019 18:[address] Franco Galan MD in [place] 03/04/2019 18:01
--- NOTE | 2019-02-26 13:39 | US_ITS ---
PROCEDURE: US BREAST RT COMPLETE CLINICAL INDICATION: ABN MAMM Possible change in asymmetric density right breast, problem solving views obtained showing a benign appearing nodular lesion with well-defined borders COMPARISON: No exams were available for comparison FINDINGS: There is a small hypoechoic cystic-appearing lesion at the 10 o'clock position somewhat near the nipple measuring 0.4 by 0.5 x 0.3 cm with faint internal echoes and this likely is a tiny cyst with internal debris. There there are 2 normal appearing nodes in the axilla. IMPRESSION: Ultrasound confirmation of benign-appearing and likely cystic lesion corresponding in size and location to the asymmetric density on mammogram and no additional evaluation is indicated Dictated by: Dr. Franco Galan MD 03/04/2019 17:[address] Franco Galan MD in [facility] 03/04/2019 17:57
== END ==
PROVIDERS: PCP Nurse Practitioner Family; Visit Provider Nurse Practitioner Family
DX: R92.2 Inconclusive mammogram (principal)
CPT/HCPCS: 76641; 77065

== ENCOUNTER → 2019-03-13 08:34 | Outpatient (POV) | payer MEDICAID, SELFPAY ==
[2019-03-13 08:52] VITALS: BP 150/87; PULSE 76; RESP 18; O2SAT 98; BMI 35.0
--- NOTE | 2019-03-13 15:49 | P.CONS_ITS ---
[facility] Pain Management SOAP Note Subjective:: Patient is a pleasant 48-year-old white female who presents today for follow-up after SI joint injection. Patient rates her pain a 4 out of 10. She did not get much relief from this SI joint injection. Patient gets good relief from SI joint injections up to 80% for more than 3 weeks however it seemingly getting worse and worse. Patient is not getting the same relief with the injections that she used to. She does have a positive Kirstin's test Joleen test and SI joint compression test. Patient and I have talked about a corner lock and she has watched the information on is not. She would like to proceed with this I do believe it would be beneficial. She is tried ice and heat therapies. She is tried and failed anti-inflammatories. She is continuing a home stretching program. She has failed physical therapy. She is had this pain for over a year most of her pain is on her right SI joint. ROS General: no recent weight change, no fever, no sleep disturbances Respiratory: no cough, no shortness of air, no recurring pulmonary infections Cardiovascular/Peripheral Vascular: No chest pain, No palpitations, no edema, no shortness of breath. Gastrointestinal: no new onset incontinence, normal bowel movements reported Genitourinary: no new onset incontinence Musculoskeletal: SI pain Psychiatric: normal mood/ affect Neurological: [denies new onset weakness in extremities], [denies new onset balance issues] Objective:: Physical Exam General: Alert and oriented x3, no acute distress, pleasant and cooperative, [on room air] Lungs: Resps E/U, Symmetrical chest expansion, Eyes: PERRL Musculoskeletal: Flexion and extension of lumbar spine somewhat guarded secondary to pain, deep tendon reflexes normal, strength in upper and lower extremities [5/5], [abnormal gait noted] Neurological: speech clear, gear coding machine operator equal, no gross sensory deficits Assessment:: Chronic sacroiliitis Plan:: We will set the patient up for a percutaneous SI joint fusion on the right side. I will follow-up with the patient after this reassess her symptoms at that time she is not on any anticoagulation therapy. Dr. Fitch has reviewed this note and agrees with this plan of care. This note was dictated using voice recognition software and may contain errors or omissions [facility] History I have reviewed the patient's past medical history: Yes Medical History: Reports:: Hyperlipidemia, Hypertension Denies:: Cancer, Diabetes Mellitus Type 1, Diabetes Mellitus Type 2, MRSA, Seizures *Have you ever received a pneumonia vaccine?: No *Have you received a flu vaccine this season?: No Other Medical History: Denies: Blood Transfusion Reaction Laterality Cases: Right: Arthroscopy Knee Amputation: No Fractures: No - *Social History Smoking Status: Never smoker Alcohol Intake: never *Occupational Status:: other Housing: house Household Members: significant other *Travel in the last 8 weeks: None Family Hx:: Unable to obtain
== END ==
PROVIDERS: PCP Nurse Practitioner Family; Visit Provider Clinical Nurse Specialist Family Health
DX: M46.1 Sacroiliitis, not elsewhere classified (principal)
CPT/HCPCS: 99212

== ENCOUNTER → 2019-06-14 15:48 | Outpatient (CLI) | payer MEDICAID, SELFPAY ==
[2019-06-14 16:07] LABS: Basophils % 0.6 % (0.1-2.0); Eosinophils # 0.1 K/mm3 (0.0-0.4); Eosinophils % 2.6 % (0.1-12.0); Hematocrit 42.6 % (37.0-47.0); Hemoglobin 14.3 g/dL (12.2-16.2); Lymphocytes # 2.6 K/mm3 (0.7-4.5); Lymphocytes % 46.3 % (10-50); Mean Corpuscular HGB Conc 33.6 g/dL (31.8-35.4); Mean Corpuscular Hemoglobin 32.3 pg (27.0-31.2); Mean Corpuscular Volume 96.2 fl (81-99); Mean Platelet Volume 8.1 fl (7.4-10.4); Monocytes # 0.5 K/mm3 (0.1-1.0); Neutrophils # 2.3 K/mm3 (1.8-7.8); Neutrophils % 41.5 % (37.0-80.0); Platelet Count 273 K/mm3 (142-424); Red Blood Count 4.43 M/mm3 (4.20-5.40); Red Cell Distribution Width 12.5 % (11.5-17.5); White Blood Count 5.6 K/mm3 (4.8-10.8)
[2019-06-14 16:36] LABS: Anion Gap 12.7 mEq/L (5-15); Blood Urea Nitrogen 19 mg/dL (7-18); Calcium 8.9 mg/dL (8.5-10.1); Carbon Dioxide 29 mmol/L (21.0-32.0); Chloride 105 mmol/L (98-107); Creatinine,Serum 0.69 mg/dL (0.55-1.02); Estimated Glomerular Filt Rate 90 ml/min (>60); GFR (African American) 109 ML/MIN (>60); Glucose 69 mg/dL (74-106); Potassium 3.7 mmoL/L (3.5-5.1); Sodium 143 mmol/L (136-145)
== END ==
PROVIDERS: Visit Provider Clinical Nurse Specialist Family Health
DX: Z01.818 Encounter for other preprocedural examination (principal)
CPT/HCPCS: 36415; 80048; 85025

== ENCOUNTER → 2019-07-02 10:43 | Outpatient (POV) | payer MEDICAID, SELFPAY ==
[2019-07-02 11:16] VITALS: BP 149/95; PULSE 72; RESP 18; O2SAT 99; BMI 35.2
--- NOTE | 2019-07-02 11:29 | P.CONS_ITS ---
[facility] Pain Management SOAP Note Subjective:: Patient is a pleasant 48-year-old white female who presents today for follow-up after a pain tach SI joint fusion of her right SI joint. Patient rates her pain a 4 out of 10 however all of her pain from her SI joint has resolved it is just in her hip at this time. Patient is taking Tylenol for pain relief but overall doing well. ROS General: no recent weight change, no fever, no sleep disturbances Respiratory: no cough, no shortness of air, no recurring pulmonary infections Cardiovascular/Peripheral Vascular: No chest pain, No palpitations, no edema, no shortness of breath. Gastrointestinal: no new onset incontinence, normal bowel movements reported Genitourinary: no new onset incontinence Musculoskeletal: Right hip pain Psychiatric: normal mood/ affect, Neurological: [denies new onset weakness in extremities], [denies new onset balance issues] Objective:: Physical Exam General: Alert and oriented x3, no acute distress, pleasant and cooperative, [on room air] Lungs: Resps E/U, Symmetrical chest expansion, Eyes: PERRL Musculoskeletal: Range of motion right hip guarded secondary to pain, deep tendon reflexes normal, strength in upper and lower extremities [5/5], antalgic gait noted Neurological: speech clear, exchange engineer equal, no gross sensory deficits Assessment:: Chronic sacroiliitis, right SI joint stabilization Plan:: I will follow-up with the patient in 3 weeks just to ensure that she is doing well. She is been instructed to call the office if she has any issues prior to her next appointment. Dr. Fitch has reviewed this note and agrees with this plan of care. This note was dictated using voice recognition software and may contain errors or omissions [facility] History I have reviewed the patient's past medical history: Yes Medical History: Reports:: Depression, Gastroesophageal Reflux Disease(GERD), Hyperlipidemia, Hypertension, MRSA Denies:: Cancer, Diabetes Mellitus Type 1, Diabetes Mellitus Type 2, Internal Pacemaker, Seizures *Have you ever received a pneumonia vaccine?: Yes *Have you received a flu vaccine this season?: Yes Other Medical History: Denies: Blood Transfusion Reaction Laterality Cases: Right: Arthroscopy Knee Other Surgeries: No: Pacemaker Amputation: No Fractures: No - *Social History Smoking Status: Never smoker Alcohol Intake: never Substance Use Type: denies use *Occupational Status:: other Housing: house Household Members: significant other *Travel in the last 8 weeks: None - Psychiatric History Pschychiatric History:: Reports:: Depression Family Hx:: Unable to obtain
== END ==
PROVIDERS: PCP Nurse Practitioner Family; Visit Provider Clinical Nurse Specialist Family Health
DX: M46.1 Sacroiliitis, not elsewhere classified (principal); M51.16 Intervertebral disc disorders with radiculopathy, lumbar region
CPT/HCPCS: 99212

== ENCOUNTER → 2019-10-08 08:50 | Outpatient (POV) | payer MEDICAID, SELFPAY ==
[2019-10-08 09:02] VITALS: BP 133/85; PULSE 69; RESP 18; TEMP 36.6; O2SAT 99; BMI 34.4
--- NOTE | 2019-10-09 08:37 | HMH.PAINSOAP ---
[facility] Pain Management SOAP Note Subjective:: Pleasant 49-year-old white female who presents today for follow-up. Patient had a pain tech stabilization of her right SI joint and did well with this. Her pain has migrated now into her hip and down into her piriformis muscle. She rates her pain a 4-10. Patient and I discussed her right greater trochanteric bursa injection and a right piriformis injection. She is interested in pursuing this. ROS General: no recent weight change, no fever, no sleep disturbances Respiratory: no cough, no shortness of air, no recurring pulmonary infections Cardiovascular/Peripheral Vascular: No chest pain, No palpitations, no edema, no shortness of breath. Gastrointestinal: no new onset incontinence, normal bowel movements reported Genitourinary: no new onset incontinence Musculoskeletal: Right hip pain Psychiatric: normal mood/ affect, Neurological: [denies new onset weakness in extremities], [denies new onset balance issues] Objective:: Physical Exam General: Alert and oriented x3, no acute distress, pleasant and cooperative, [on room air] Lungs: Resps E/U, Symmetrical chest expansion, Eyes: PERRL Musculoskeletal: Flexion and extension of lumbar spine somewhat guarded secondary to pain, deep tendon reflexes normal, strength in upper and lower extremities [5/5], [abnormal gait noted] Neurological: speech clear, ethylene oxide panelboard operator equal, no gross sensory deficits Assessment:: Piriformis pain, right hip pain, bursitis Plan:: Schedule the patient for right piriformis and right greater trochanteric bursa injection. She is been instructed to call the office if she has any issues prior to her next appointment. Dr. Fitch has reviewed this note and agrees with this plan of care. This note was dictated using voice recognition software and may contain errors or omissions [facility] History I have reviewed the patient's past medical history: Yes Medical History: Reports:: Depression, Gastroesophageal Reflux Disease(GERD), Hyperlipidemia, Hypertension, MRSA Denies:: Cancer, Diabetes Mellitus Type 1, Diabetes Mellitus Type 2, Internal Pacemaker, Seizures *Have you ever received a pneumonia vaccine?: Yes *Have you received a flu vaccine this season?: Yes Other Medical History: Denies: Blood Transfusion Reaction Laterality Cases: Right: Arthroscopy Knee Other Surgeries: No: Pacemaker Amputation: No Fractures: No - *Social History Smoking Status: Never smoker Alcohol Intake: never Substance Use Type: denies use *Occupational Status:: other Housing: house Household Members: significant other *Travel in the last 8 weeks: None - Psychiatric History Pschychiatric History:: Reports:: Depression Family Hx:: Unable to obtain
== END ==
PROVIDERS: PCP Nurse Practitioner Family; Visit Provider Clinical Nurse Specialist Family Health
DX: G57.01 Lesion of sciatic nerve, right lower limb (principal); M71.9 Bursopathy, unspecified
CPT/HCPCS: 99212

== ENCOUNTER 2019-10-19 09:38 | Day surgery (SDC) | payer MEDICAID, SELFPAY ==
[2019-10-19 09:57] VITALS: BP 149/92; PULSE 74; RESP 18; TEMP 36.6; O2SAT 99; BMI 44.9
--- NOTE | 2019-10-19 10:36 | HMH.PMPROC ---
- Procedure Date: 10/19/19 Time: 10:44 Anesthesiologist:: Pal Fitch MD Complications:: None Pre-procedure Diagnosis:: Right hip pain with trochanteric bursitis and sciatica with piriformis syndrome Post-procedure Diagnosis:: Same Indications for Procedure:: Patient is a pleasant 49-year-old white female who we are treating for right hip pain with trochanteric bursitis and sciatica. She is status post SI joint stabilization with a [facility] system. She is doing well with this. We will do right sciatic nerve/piriformis muscle injection and trochanteric bursa injection today. Procedure Details:: Trochanteric bursa injection and sciatic nerve/piriformis muscle injection Informed consent was obtained and the risk and benefits of the procedure was explained to the patient. The patient was taken to the procedure room. The right hip was prepped using ChloraPrep. The skin and subcutaneous tissues were anesthetized using lidocaine. I placed a 22-gauge spinal needle and advanced under fluoroscopic guidance until it contacted the right greater trochanter. Needle placement was confirmed with dye. After this I injected bupivacaine 0.25% 5 mL and Depo-Medrol 40 mg into the right trochanteric bursa. A 25-gauge needle was then inserted into the right piriformis muscle into the area of the right sciatic nerve we then injected 10 mL bupivacaine 0.25% Depo-Medrol 40 mg into the area of the right sciatic nerve and piriformis muscle. Patient tolerated the procedure well with no complications. Plan and Disposition:: We will follow-up with her in 2 weeks. Will reevaluate her symptoms at that time. We did assess her implant for SI joint stabilization which seems to be in good position.
[2019-10-19 10:43] VITALS: BP 138/89; PULSE 85; RESP 18; O2SAT 98
[2019-10-19 10:44] VITALS: BP 138/78; PULSE 85; RESP 18; O2SAT 98
[2019-10-19 10:55] VITALS: BP 162/97; PULSE 67; RESP 20; O2SAT 98
== END 2019-10-19 10:56 | disposition home or self-care (01) ==
LOC: SC.PAINP 09:39
PROVIDERS: PCP Nurse Practitioner Family; Visit Provider Anesthesiology
DX: M70.61 Trochanteric bursitis, right hip (principal); M54.31 Sciatica, right side; I10 Essential (primary) hypertension; E78.5 Hyperlipidemia, unspecified; F32.9 Major depressive disorder, single episode, unspecified; Z87.39 Personal history of other diseases of the musculoskeletal system and connective tissue; Z79.899 Other long term (current) drug therapy; M25.551 Pain in right hip
CPT/HCPCS: 20552; 20610; 64445; 77002; J1030; Q9966

== ENCOUNTER 2019-11-07 12:56 | Emergency (ER) | payer MEDICAID, SELFPAY ==
[2019-11-07 13:46] VITALS: BP 127/82; PULSE 74; RESP 19; TEMP 36.8; O2SAT 98; BMI 35.6
--- NOTE | 2019-11-07 14:11 | HMH.EDUTC ---
[facility] [place] Disposition Clinical Impression: Dizziness Disposition: Home, Self-Care Condition on Discharge: Good Instructions: Vertigo, Meclizine Additional Instructions: Take medication as prescribed Follow up with PCP if no improvement or any worsening of symptoms Return if needed Straight to ER if any life threatening symtpoms Prescriptions: Meclizine HCl [Meclizine 25mg Tab] 25 mg PO TID PRN 10 Days #30 tab PRN Reason: Dizziness Transmission Status: Received by [facility] Mometasone Furoate [Nasonex] 2 sprays NS DAILY #1 spray.pump Transmission Status: Received by [facility] Referrals: Shari Birmingham [Primary Care Provider] - As needed Time of Disposition: 14:22 Medical Decision Making - Ryan Inquiry Pt receiving controlled substance: No Ryan was queried for this patient: No Vital Signs: 11/07/19 13:46 11/07/19 14:42 Temperature 98.2 F 98.2 F Temperature Source Oral Pulse Rate 74 Pulse Rate [Right Brachial] 74 Respiratory Rate 19 19 Blood Pressure 127/82 Blood Pressure [Right Arm] 127/82 Blood Pressure Mean [Right Arm] 97 Blood Pressure Source [Right Arm] Automatic Cuff Blood Pressure Position [Right Arm] Sitting 02 Sat by Pulse Oximetry 98 Oxygen Delivery Method Room Air Orders (Tests/Meds): ED MEDICATIONS Discontinued Medications Generic Name Dose Route Start Last Admin Trade Name Xaviq PRN Reason Stop Dose Admin Meclizine HCl 25 mg 11/07/19 14:17 11/07/19 14:15 Antivert 25mg Tablet PO 11/07/19 14:18 25 mg ONCE ONE Administration Medical Decision Narrative: After medication patient states that she feels much better and dizziness is now improved, Reports she has a history of dizziness and has been out of her Meclizine that she normally takes for it [facility] [place] HPI - General Stated complaint: Dizzy spell Time Seen by Provider: 11/07/19 14:11 Mode of Arrival: Ambulatory Source of Information: Patient Limitations: No Limitations Description of Symptoms (Recalled from Triage Doc. by RN): PATIENT C/O DIZZINESS THAT STARTED YESTERDAY HEENT Symptoms (Recalled from RN notes): Yes Resp Symptoms (Recalled from RN notes): No Skin Symptoms (Recalled from RN notes): No MS Symptoms (Recalled from RN notes): No Functional Status (Recalled from RN notes): WNL - History of Present Illness Provider Complaint: Patient states that she has a history of inner ear problems states that yesterday she bent over at work and got dizzy and ever since she has been having some dizziness when she bends over or moves too quickly State that she did this before and had to take meclizine but she is out of the medication so she came in to see if she could get some - Related Data Home Medications Medication Instructions Recorded Confirmed Cetirizine HCl [Zyrtec] 10 mg PO DAILY 05/15/17 10/19/19 Cholecalciferol (Vitamin D3) 5,000 unit PO DAILY 05/15/17 10/19/19 [Vitamin D3 1,000 Unit Tab] Esomeprazole Magnesium [Nexium 40 mg PO DAILY 05/15/17 10/19/19 24Hr] Lysine HCl [l-Lysine] 500 mg PO DAILY 05/15/17 10/19/19 Oxybutynin Chloride [Ditropan Xl] 5 mg PO DAILY 05/15/17 10/19/19 buPROPion HCL [Wellbutrin Xl] 450 mg PO DAILY 05/15/17 10/19/19 lisinopriL [Lisinopril 10mg Tab] 10 mg PO DAILY 05/15/17 10/19/19 Meloxicam [Mobic] 15 mg PO DAILY 12/31/17 10/19/19 Rosuvastatin Calcium 10 mg PO HS 07/28/18 10/19/19 Acyclovir [Zovirax] 1 applic TOPICAL 5XD 02/13/19 10/19/19 predniSONE [Prednisone 10mg Tab 10 mg PO UD DOSE PK 10/19/19 10/19/19 Dose-Pack] Previous Rx's Medication Instructions Recorded Ibuprofen [Ibuprofen 600mg 600 mg PO Q6HP PRN #30 tab 11/23/18 Tablet] Ibuprofen [Ibuprofen 600mg 600 mg PO Q6HP PRN #30 tab 11/29/18 Tablet] Ondansetron [Zofran 4mg ODT] 4 mg PO Q6H PRN #12 tab.rapdis 06/17/19 Promethazine HCl [Phenergan 12.5mg 12.5 mg PO Q6H PRN #12 tab 06/17/19 tablet] Meclizine HCl [Meclizine 25mg Tab] 25 mg PO TID PRN 10 Days #30 t
[2019-11-07 14:42] VITALS: BP 127/82; PULSE 74; RESP 19; TEMP 36.8; O2SAT 98
== END 2019-11-07 14:46 | disposition home or self-care (01) ==
PROVIDERS: Emergency Provider Nurse Practitioner; PCP Nurse Practitioner Family
DX: R42 Dizziness and giddiness (principal); K21.9 Gastro-esophageal reflux disease without esophagitis; E78.5 Hyperlipidemia, unspecified; I10 Essential (primary) hypertension; F33.1 Major depressive disorder, recurrent, moderate; Z79.899 Other long term (current) drug therapy
CPT/HCPCS: 99201

== ENCOUNTER → 2019-11-12 08:41 | Outpatient (POV) | payer MEDICAID, SELFPAY ==
--- NOTE | 2019-11-12 | XR_ITS ---
PROCEDURE: XR HIP RT 2-3V W/PELVIS CLINICAL INDICATION: Right hip pain COMPARISON: [facility] (SINGLE VIEW) from 10/15/2016 FINDINGS: No obvious fracture or dislocation. A small os acetabulum as a normal variant. There is an IUD in place. Small spurs noted along the right SI joint inferiorly. There is a small sclerotic density along the mid aspect of the right SI joint slightly medial to the joint. IMPRESSION: No acute finding of the hip. Mild degenerative change. Osteoarthritic change of the right SI joint with sclerotic density overlying the SI joint centrally etiology indeterminate and may be better evaluated with CT if clinically warranted Dictated by: Celio Fu MD 11/12/2019 14:52 Electronically signed by Celio Fu MD in [place] 11/12/2019 14:52
[2019-11-12 09:00] VITALS: BP 147/94; PULSE 70; RESP 18; O2SAT 99; BMI 35.6
--- NOTE | 2019-11-12 09:02 | P.CONS_ITS ---
[facility] Pain Management SOAP Note Subjective:: Patient is a pleasant 49-year-old white female who presents today for follow-up after right trochanteric bursa injection and piriformis muscle injection. Patient states that the pain going down her leg has improved however her pain in her joint has become constant. She rates it a 4 out of 10. Patient is complaining mostly of right hip pain within the joint. It is very focal. We she does not have any x-rays we will send her for some diagnostic imaging. She is currently in physical therapy at this time. ROS General: no recent weight change, no fever, no sleep disturbances Respiratory: no cough, no shortness of air, no recurring pulmonary infections Cardiovascular/Peripheral Vascular: No chest pain, No palpitations, no edema, no shortness of breath. Gastrointestinal: no new onset incontinence, normal bowel movements reported Genitourinary: no new onset incontinence Musculoskeletal: Right hip pain Psychiatric: normal mood/ affect Neurological: [denies new onset weakness in extremities], [denies new onset balance issues] Objective:: Physical Exam General: Alert and oriented x3, no acute distress, pleasant and cooperative, [on room air] Lungs: Resps E/U, Symmetrical chest expansion, Eyes: PERRL Musculoskeletal: Flexion and extension of lumbar spine somewhat guarded secondary to pain, deep tendon reflexes normal, strength in upper and lower extremities [5/5], [abnormal gait noted] Neurological: speech clear, adjunct trainer equal, no gross sensory deficits Assessment:: Right hip pain, sacroiliitis, bursitis and piriformis syndrome Plan:: We will schedule x-ray of the right hip for the patient to help determine pathology. Patient may need an orthopedic surgical consultation. I will follow-up with her after this reassess her symptoms at that time she has been instructed to call the office if she has any issues prior to next appointment. Dr. Fitch has reviewed this note and agrees with this plan of care. This note was dictated using voice recognition software and may contain errors or omissions [facility] History I have reviewed the patient's past medical history: Yes Medical History: Reports:: Depression, Gastroesophageal Reflux Disease(GERD), Hyperlipidemia, Hypertension Denies:: Cancer, Diabetes Mellitus Type 1, Diabetes Mellitus Type 2, Internal Pacemaker, MRSA, Seizures *Have you ever received a pneumonia vaccine?: Yes *Have you received a flu vaccine this season?: Yes Other Medical History: Denies: Blood Transfusion Reaction Laterality Cases: Right: Arthroscopy Knee Other Surgeries: No: Pacemaker Amputation: No Fractures: No - *Social History Smoking Status: Never smoker Alcohol Intake: never Substance Use Type: denies use *Occupational Status:: other Housing: house Household Members: significant other *Travel in the last 8 weeks: None - Psychiatric History Pschychiatric History:: Reports:: Depression Family Hx:: Unable to obtain
== END ==
LOC: SC.PAIN 08:43 → RAD 09:08
PROVIDERS: PCP Nurse Practitioner Family; Visit Provider Clinical Nurse Specialist Family Health
DX: M25.551 Pain in right hip (principal)
CPT/HCPCS: 73502; 99212

== ENCOUNTER 2019-11-19 16:00 | Outpatient (RCR) | payer MEDICAID, SELFPAY | END 2019-12-10 16:13 | disposition home or self-care (01) | LOC: PT.CARL 16:00 | PROVIDERS: PCP Nurse Practitioner Family; Visit Provider Nurse Practitioner Family | DX: M77.11 Lateral epicondylitis, right elbow (principal) | CPT/HCPCS: 97014; 97035; 97110; 97140; 97163; G0283 ==

== ENCOUNTER 2019-11-23 14:48 | Day surgery (SDC) | payer MEDICAID, SELFPAY ==
[2019-11-23 15:20] VITALS: BP 131/81; PULSE 80; RESP 18; TEMP 37.1; O2SAT 98; BMI 36.0
--- NOTE | 2019-11-23 15:20 | HMH.PMPROC ---
- Procedure Date: 11/23/19 Time: 15:20 Anesthesiologist:: Pal Fitch MD Complications:: None Pre-procedure Diagnosis:: Degenerative osteoarthritis right hip with chronic right hip pain Post-procedure Diagnosis:: Same Indications for Procedure:: This patient is a pleasant 49-year-old white female who we have been seeing for right hip pain. She is status post right trochanteric bursa injection and piriformis muscle injection. The sciatica type pain has improved however still has pain in the right hip joint. Especially with movement. We will do a right hip intra-articular injection today to help with her pain symptoms. Procedure Details:: Right hip intra-articular injection Informed consent was obtained risk and benefits of the procedure were explained to the patient. Patient was taken the procedure room. The right hip was prepped using ChloraPrep. A 22-gauge spinal needle was inserted and advanced into the right hip joint. Needle placement was confirmed with dye. After this we injected 5 mL bupivacaine 0.25% Depo-Medrol 40 mg into the right hip joint. The patient tolerated the procedure well with no complications. Plan and Disposition:: We will follow-up with her in 2 weeks. Will reevaluate symptoms at that time.
[2019-11-23 15:36] VITALS: BP 135/85
[2019-11-23 15:37] VITALS: BP 143/88; PULSE 85; RESP 18; O2SAT 99
[2019-11-23 15:49] VITALS: BP 129/66; PULSE 80; RESP 18; O2SAT 98
== END 2019-11-23 15:50 | disposition home or self-care (01) ==
LOC: SC.PAINP 14:48
PROVIDERS: PCP Nurse Practitioner Family; Visit Provider Anesthesiology
DX: M16.11 Unilateral primary osteoarthritis, right hip (principal); I10 Essential (primary) hypertension; E78.5 Hyperlipidemia, unspecified; F32.9 Major depressive disorder, single episode, unspecified; Z82.49 Family history of ischemic heart disease and other diseases of the circulatory system; Z79.899 Other long term (current) drug therapy
CPT/HCPCS: 20610; 77002; J1040; Q9966

== ENCOUNTER → 2019-12-07 10:11 | Outpatient (CLI) | payer MEDICAID, SELFPAY ==
--- NOTE | 2019-12-07 10:14 | MR_ITS ---
PROCEDURE: MR CERVICAL SPINE WO CON CLINICAL INDICATION: NECK PAIN Right arm pain numbness and tingling with numbness in the 4th 5th digits and tingling in the jaw all COMPARISON: No exams were available for comparison TECHNIQUE: Standard multiplanar multiecho sequences are performed without contrast. 3-D MIP and myelographic images are also rendered and reviewed FINDINGS: The craniocervical junction has an unremarkable appearance. There is reversal of the cervical lordosis.. Incidental note is made of partial empty sella. C2-C3: Unremarkable. C3-C4: Minimal bulging disc. C4-C5: Mild degenerative disc disease with mild bulging disc with ridging of the posterior endplate and mild left-sided uncovertebral hypertrophy with small disc osteophyte complex with mild left-sided lateral recess and foraminal narrowing. There is borderline canal stenosis at this level. C5-C6: There is degenerative disc disease with bulging disc with a broad-based central disc protrusion which is slightly eccentric toward the left. This is causing some impingement upon the left paracentral and anterior aspect of the cord with mild flattening of the cord with canal stenosis of 8 mm. There is thickening of the posterior longitudinal ligament at C5-C6. C6-C7: Degenerative disc disease with bulging disc and a small left paracentral disc herniation causing moderate compression upon the central and left aspect of the cord anteriorly with the canal at this level measuring 7 mm with flattening of the cord. There is thickening of the posterior longitudinal ligament at C6-C7. C7-T1: Unremarkable. There is an area of increased T2 signal involving the inferior aspect of the T3 vertebral body nonspecific but could be due to small hemangioma IMPRESSION: 1. C4-C5: Mild degenerative disc disease with mild bulging disc with ridging of the posterior endplate and mild left-sided uncovertebral hypertrophy with small disc osteophyte complex with mild left-sided lateral recess and foraminal narrowing. There is borderline canal stenosis at this level. 2. C5-C6: There is degenerative disc disease with bulging disc with a broad-based central disc protrusion which is slightly eccentric toward the left. This is causing some impingement upon the left paracentral and anterior aspect of the cord with mild flattening of the cord with canal stenosis of 8 mm. There is thickening of the posterior longitudinal ligament at C5-C6. 3. C6-C7: Degenerative disc disease with bulging disc and a small left paracentral disc herniation causing moderate compression upon the central and left aspect of the cord anteriorly with the canal at this level measuring 7 mm with flattening of the cord. There is thickening of the posterior longitudinal ligament at C6-C7. Dictated by: Celio Fu MD 12/10/2019 09:59 Electronically signed by Celio Fu MD in [place] 12/10/2019 09:59
== END ==
PROVIDERS: PCP Nurse Practitioner Family; Visit Provider Nurse Practitioner Family
DX: M79.601 Pain in right arm (principal)
CPT/HCPCS: 72141; 76376

== ENCOUNTER → 2019-12-13 13:33 | Outpatient (POV) | payer MEDICAID, SELFPAY ==
[2019-12-13 14:11] VITALS: BP 122/78; PULSE 62; RESP 18; O2SAT 99; BMI 35.2
--- NOTE | 2019-12-13 15:26 | HMH.PAINSOAP ---
[facility] Pain Management SOAP Note Subjective:: Patient is a pleasant 49-year-old white female who presents today for follow-up. She recently underwent a right intra-articular hip injection. She has been treated for chronic low back pain along with chronic sacroiliitis. Patient has had multiple SI joint injections with an SI stabilization procedure. She does say she got relief following the corner lock procedure. She then developed right hip pain. She says that she did not get any relief after the right intra-articular hip injection. She rates her pain a 7 out of 10. She says she is also continuing to have low back pain. She says that it is different than the pain she had before undergoing the SI stabilization procedure. Patient says that she has had 3 lumbar epidural steroid injections which do give her relief, however, only up to 2 to 3 days. She also says that she gets about 60% relief with those injections. Patient did undergo an MRI of her cervical spine which does show a herniated disc. Her primary care provider did consult Dr. Moreira, however, she has not been contacted by the clinic. He says she also has chronic mid back pain as well. Review of Systems General: No recent weight changes, no fever, no sleep disturbances Respiratory: No cough, no shortness of air, no recurring pulmonary infections Cardiovascular/peripheral vascular: No chest pain, no palpitations, no edema, no shortness of breath Gastrointestinal: No new onset incontinence, normal bowel movements reported Genitourinary: No new onset incontinence Musculoskeletal: Neck pain, mid back pain, low back pain, right hip pain Psychiatric: Normal mood/affect Neurological: [Denies weakness in extremities], [denies balance issues] Objective:: Physical exam General: Alert and oriented x3, no acute distress, pleasant and cooperative, [on room air] Lungs: Respirations even and unlabored, symmetrical chest expansion Eyes: PERRL Musculoskeletal: Flexion and extension of cervical, thoracic, lumbar spine somewhat guarded secondary to pain, deep tendon reflexes normal, strength in upper and lower extremities [5/5], [abnormal gait noted] Neurological: Speech clear, steamfitter apprentice equal, no gross sensory deficit Assessment:: 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 Moreira's office to see if we can get the patient in for an appointment any quicker. She would like to discuss the plan of care with Dr. Moreira before proceeding with any further treatments in our clinic. Following her appointment with Dr. Moreira, we will see the patient in the clinic. She and I did discuss possible implanted devices in the future for pain relief. Has been instructed to contact clinic if she has any concerns before her next appointment. The patient and I specifically discussed risk factors for COVID19. These risks include, but are not limited to age greater than 60, heart or lung disease, diabetes, immunosuppression, and travel. We also discussed NSAIDs may worsen COVID19 infection or symptoms. Patient should not use NSAIDs to treat COVID19 signs or symptoms. Patient was also informed that any type of corticosteroid of any form (oral or injection) will decrease the patient's immune system response and may increase the likelihood of COVID19 infection [address] symptoms[address]. Fitch has reviewed this note and agrees with this plan of care. This note was dictated using voice recognition software and make contain errors or omissions. [facility] History I have reviewed the patient's past medical history: Yes Medical History: Reports:: Depression, Gastroesophageal Reflux Disease(GERD), Hyperlipidemia, Hypertension Denies:: Cancer, Diabetes Mellitus Type 1, Diabetes Mellitus Type 2, Internal Pacemaker, MRSA, Seizures *Have you ever received a pneumonia vaccine?: Yes *Have you received a flu vaccine
== END ==
PROVIDERS: PCP Nurse Practitioner Family; Visit Provider Clinical Nurse Specialist Family Health
DX: M51.16 Intervertebral disc disorders with radiculopathy, lumbar region (principal); M50.10 Cervical disc disorder with radiculopathy, unspecified cervical region
CPT/HCPCS: 99212

== ENCOUNTER → 2019-12-26 08:07 | Outpatient (CLI) | payer MEDICAID, SELFPAY ==
--- NOTE | 2019-12-26 08:11 | XR_ITS ---
PROCEDURE: XR ELBOW RT MIN 3V CLINICAL INDICATION: elbow pain COMPARISON: No exams were available for comparison FINDINGS: No fracture or dislocation. No lytic or blastic change. There is normal mineralization. The joint spaces are well-preserved. No significant degenerative/arthritic changes. No erosive changes evident. Other findings:None. IMPRESSION: No acute findings. Dictated by: Celio Fu MD 12/26/2019 14:52 Celio Fu MD in [place] 12/26/2019 14:52
== END ==
PROVIDERS: PCP Nurse Practitioner Family; Visit Provider Orthopaedic Surgery
DX: M25.529 Pain in unspecified elbow (principal)
CPT/HCPCS: 73080

== ENCOUNTER 2020-01-15 09:00 | Outpatient (RCR) | payer MEDICAID, SELFPAY | END 2020-02-04 17:26 | disposition home or self-care (01) | LOC: PT.CARL 09:00 | PROVIDERS: PCP Nurse Practitioner Family; Visit Provider Neurological Surgery | DX: M50.10 Cervical disc disorder with radiculopathy, unspecified cervical region (principal) | CPT/HCPCS: 97012; 97014; 97110; 97140; 97163; G0283 ==

== ENCOUNTER → 2020-01-28 09:21 | Outpatient (POV) | payer MEDICAID, SELFPAY ==
[2020-01-28 09:47] VITALS: BP 135/88; PULSE 85; RESP 18; O2SAT 98; BMI 31.3
--- NOTE | 2020-01-28 09:47 | HMH.PAINSOAP ---
[facility] Pain Management SOAP Note Subjective:: Patient is a pleasant 49-year-old white female who presents today for follow-up. Patient had an SI joint stabilization with pain tech. Patient is still having quite a bit of pain however most of her pain is in her neck. She was sent to Dr. Moreira for consultation. She may be a surgical candidate. She is scheduled for a myelogram. She has a herniation in her cervical spine. Patient is currently in physical therapy. Patient has neck pain radiating into her bilateral arms. She rates her pain today a 6 out of 10. ROS General: no recent weight change, no fever, no sleep disturbances Respiratory: no cough, no shortness of air, no recurring pulmonary infections Cardiovascular/Peripheral Vascular: No chest pain, No palpitations, no edema, no shortness of breath. Gastrointestinal: no new onset incontinence, normal bowel movements reported Genitourinary: no new onset incontinence Musculoskeletal: Neck pain, arm pain, SI joint pain Psychiatric: normal mood/ affect Neurological: [denies new onset weakness in extremities], [denies new onset balance issues] Objective:: Physical Exam General: Alert and oriented x3, no acute distress, pleasant and cooperative, [on room air] Lungs: Resps E/U, Symmetrical chest expansion, Eyes: PERRL Musculoskeletal: Flexion and extension of lumbar and cervical spine somewhat guarded secondary to pain, deep tendon reflexes normal, strength in upper and lower extremities [5/5], antalgic gait noted Neurological: speech clear, underwriting service representative equal, no gross sensory deficits Assessment:: Degenerative disc disease cervical and lumbar spine cervical and lumbar radiculopathy symptoms, herniated disc at cervical spine and mid back pain Plan:: We will start the patient on gabapentin 100 mg 1 p.o. 3 times daily. We will see her back in 1 month reassess her symptoms at that time at that time she should be seen by Dr. Moreira and her myelogram should be resulted. She has been instructed to call the office if she has any issues prior to her next appointment. Dr. Fitch has reviewed this note and agrees with this plan of care. This note was dictated using voice recognition software and may contain errors or omissions [facility] History I have reviewed the patient's past medical history: Yes Medical History: Reports:: Depression, Gastroesophageal Reflux Disease(GERD), Hyperlipidemia, Hypertension Denies:: Cancer, Diabetes Mellitus Type 1, Diabetes Mellitus Type 2, Internal Pacemaker, MRSA, Seizures *Have you ever received a pneumonia vaccine?: No *Have you received a flu vaccine this season?: Yes Other Medical History: Denies: Blood Transfusion Reaction Laterality Cases: Right: Arthroscopy Knee Other Surgeries: Yes: Cholecystectomy, Tubal Ligation. No: Pacemaker Amputation: No Fractures: No - *Social History Smoking Status: Never smoker Alcohol Intake: never Substance Use Type: denies use *Occupational Status:: other Housing: house Household Members: significant other *Travel in the last 8 weeks: None - Psychiatric History Pschychiatric History:: Reports:: Depression Family Hx:: Unable to obtain
== END ==
PROVIDERS: PCP Nurse Practitioner Family; Visit Provider Clinical Nurse Specialist Family Health
DX: M50.10 Cervical disc disorder with radiculopathy, unspecified cervical region (principal); M54.16 Radiculopathy, lumbar region; M50.20 Other cervical disc displacement, unspecified cervical region; M51.24 Other intervertebral disc displacement, thoracic region
CPT/HCPCS: 99212

== ENCOUNTER → 2020-02-21 08:31 | Outpatient (POV) | payer MEDICAID, SELFPAY ==
[2020-02-21 08:39] VITALS: BP 133/85; PULSE 85; RESP 18; TEMP 36.8; O2SAT 98; BMI 35.2
--- NOTE | 2020-02-21 08:59 | HMH.PAINSOAP ---
[facility] Pain Management SOAP Note Subjective:: Patient is a 49-year-old white female who presents today for follow-up. She has been treated for chronic neck and low back pain. Patient did see Dr. Moreira and was not happy with the appointment. She would like to follow-up with a different neurosurgeon. She was seen with Dr. Moreira for herniation to her cervical spine. She is here today for complaints of right hip pain with radiation into her right leg causing severe numbness and tingling and pain. Patient rates her pain a 4 out of 10. She says that her hip feels like it is on fire . Patient says that she has had intra-articular hip injections with no relief and physical therapy. She says physical therapy did not give her any relief, but actually worsen the pain. Patient says that she was also sent to physical therapy per Dr. Moreira and though she was only having pain mainly on the right side, since traction, she is now having pain on the left side as well. Patient has had a SI stabilization procedure on the right side per pain tech. Patient says that she is not having pain in her SI joint at this time, but thinks it is coming from her back. She has tried ice and heat therapies along with oral medications. Review of Systems General: No recent weight changes, no fever, no sleep disturbances Respiratory: No cough, no shortness of air, no recurring pulmonary infections Cardiovascular/peripheral vascular: No chest pain, no palpitations, no edema, no shortness of breath Gastrointestinal: No new onset incontinence, normal bowel movements reported Genitourinary: No new onset incontinence Musculoskeletal: Right hip pain, right leg pain, right foot pain with numbness and tingling Psychiatric: Normal mood/affect Neurological: [Denies weakness in extremities], [denies balance issues] Objective:: Physical exam General: Alert and oriented x3, no acute distress, pleasant and cooperative, [on room air] Lungs: Respirations even and unlabored, symmetrical chest expansion Eyes: PERRL Musculoskeletal: Flexion and extension of cervical and lumbar spine somewhat guarded secondary to pain, deep tendon reflexes normal, strength in upper and lower extremities [5/5], [abnormal gait noted] Neurological: Speech clear, sandblast operator equal, no gross sensory deficit Assessment:: 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 She and I did discuss her MRI. We will schedule her for a lumbar epidural steroid injection at L4-L5 with an epidurogram. She may be a possible candidate for Vertiflex procedure. Dr. MARBELLA Vega will assess her during her steroid injection to see if she is a candidate for the procedure. She was given educational information regarding the procedure today. Patient is not on any anticoagulation therapy. We will schedule her to see a different neurosurgeon in [facility] since she was not happy with Dr. Moreira. She has been instructed to contact the clinic if she has any concerns before her next appointment. The patient and I specifically discussed risk factors for COVID19. These risks include, but are not limited to age greater than 60, heart or lung disease, diabetes, immunosuppression, and travel. We also discussed NSAIDs may worsen COVID19 infection or symptoms. Patient should not use NSAIDs to treat COVID19 signs or symptoms. Patient was also informed that any type of corticosteroid of any form (oral or injection) will decrease the patient's immune system response and may increase the likelihood of COVID19 infection [address] symptoms[address] Fitch has reviewed this note and agrees with this plan of care. This note was dictated using voice recognition software and make contain errors or omissions. [facility] History I have reviewed the patient's past medical history: Yes Medical History: Reports:: Depression, Gastroesophageal Reflux Disease(GERD), Hyperli
== END ==
PROVIDERS: PCP Nurse Practitioner Family; Visit Provider Clinical Nurse Specialist Family Health
DX: M50.10 Cervical disc disorder with radiculopathy, unspecified cervical region (principal); M51.16 Intervertebral disc disorders with radiculopathy, lumbar region
CPT/HCPCS: 99212

== ENCOUNTER 2020-02-29 14:09 | Day surgery (SDC) | payer MEDICAID, SELFPAY ==
[2020-02-29 16:03] VITALS: BP 121/74; PULSE 70; RESP 18; TEMP 36.4; O2SAT 99; BMI 35.2
[2020-02-29 16:20] VITALS: BP 138/88; PULSE 85; RESP 18; O2SAT 98
[2020-02-29 16:21] VITALS: BP 140/74; PULSE 89; RESP 18; O2SAT 97
[2020-02-29 16:37] VITALS: BP 118/73; PULSE 64; RESP 18; O2SAT 99
--- NOTE | 2020-02-29 16:43 | P.PCN_ITS ---
- Procedure Date: 02/29/20 Time: 16:44 Anesthesiologist:: Pal Fitch MD Complications:: None Pre-procedure Diagnosis:: Degenerative disc disease of lumbar spine with lumbar radiculopathy symptoms Post-procedure Diagnosis:: Same Indications for Procedure:: Patient is a pleasant 49-year-old white female who we are treating for low back pain with lumbar radiculopathy symptoms. She has increasing pain in her back and down her legs. She is seeking a second opinion on neurosurgical evaluation. We will send her to Dr. Cao. We will also do a lumbar pleural steroid injection today to help her with her pain symptoms. Procedure Details:: Lumbar epidural steroid injection under fluoroscopy Informed consent was obtained and the risk and benefits of the procedure was explained to the patient. The patient was taken to the procedure room. The patient was placed prone on the procedure table. The patient was prepped and draped in sterile fashion. C-arm fluoroscopy was used to view the lumbar spine. Skin and subcutaneous tissues were anesthetized using lidocaine. I placed an 18-gauge epidural needle and advanced into the L4-L5 interspace using fluoro scopic guidance and [id number] to air. After confirmation of needle placement in the epidural space with dye I injected 2 mL of lidocaine 1.5% with Depo-Medrol 80 mg. Patient tolerated the procedure well with no complications. Plan and Disposition:: We will follow-up with her in 2 weeks. Will reevaluate symptoms at that time.
== END 2020-02-29 16:38 | disposition home or self-care (01) ==
LOC: SC.PAINP 14:09
PROVIDERS: PCP Nurse Practitioner Family; Visit Provider Anesthesiology
DX: M51.16 Intervertebral disc disorders with radiculopathy, lumbar region (principal); I10 Essential (primary) hypertension; K21.9 Gastro-esophageal reflux disease without esophagitis; E78.5 Hyperlipidemia, unspecified; F32.9 Major depressive disorder, single episode, unspecified
CPT/HCPCS: 62323; J1040; Q9966

== ENCOUNTER → 2020-03-27 14:25 | Outpatient (POV) | payer MEDICAID, SELFPAY ==
[2020-03-27 14:43] VITALS: BP 113/80; PULSE 75; RESP 18; O2SAT 98; BMI 20.9
--- NOTE | 2020-03-27 16:45 | HMH.PAINSOAP ---
[facility] Pain Management SOAP Note Subjective:: Patient is a 49-year-old white female who presents today for follow-up. She recently underwent a lumbar epidural steroid injection. She has been treated for chronic low back pain with lumbar radiculopathy symptoms. Patient is also having some weakness and heaviness in her bilateral lower extremities. Patient says that she felt that her previous injection did include an epidurogram, however, according to Dr. MARBELLA Vega's note a lumbar epidural steroid injection was the only thing that was performed. Patient would like an epidurogram to see if she is a candidate for Vertiflex procedure. She does rate her pain a 5 or 6 out of 10 at this time. Patient also recently had an MRI of her cervical spine and was referred to Dr. Moreira. Patient says that she did not feel that it was an appropriate appointment and as a result requested a second opinion. Dr. MARBELLA Vega did send the patient for second opinion with Dr. Cao. Patient says that after further evaluation with Dr. Cao, she does have scheduled surgery for ACDF on April 28. Review of Systems General: No recent weight changes, no fever, no sleep disturbances Respiratory: No cough, no shortness of air, no recurring pulmonary infections Cardiovascular/peripheral vascular: No chest pain, no palpitations, no edema, no shortness of breath Gastrointestinal: No new onset incontinence, normal bowel movements reported Genitourinary: No new onset incontinence Musculoskeletal: Neck and low back pain with numbness and tingling in lower extremities Psychiatric: Normal mood/affect Neurological: [Denies weakness in extremities], [denies balance issues] Objective:: Physical exam General: Alert and oriented x3, no acute distress, pleasant and cooperative, [on room air] Lungs: Respirations even and unlabored, symmetrical chest expansion Eyes: PERRL Musculoskeletal: Flexion and extension of cervical and lumbar spine somewhat guarded secondary to pain, deep tendon reflexes normal, strength in upper and lower extremities [5/5], slightly antalgic gait noted Neurological: Speech clear, oracle ebs developer equal, no gross sensory deficit Assessment:: Degenerative disc disease lumbar spine with lumbar radiculopathy symptoms, degenerative disc disease cervical spine with cervical radiculopathy symptoms Plan:: We will schedule the patient for a lumbar epidural steroid injection at L4-L5 with an epidurogram. Patient would like to be evaluated for possible Vertiflex procedure. She is not on any anticoagulation therapy. The patient did get some relief from the previous injection. She did get about 60% relief for about 5 days. Her pain did return. We will follow-up with her after her epidurogram to discuss further plan of care. She has been instructed to contact clinic if she has any concerns before next appointment. The patient and I specifically discussed risk factors for COVID19. These risks include, but are not limited to age greater than 60, heart or lung disease, diabetes, immunosuppression, and travel. We also discussed NSAIDs may worsen COVID19 infection or symptoms. Patient should not use NSAIDs to treat COVID19 signs or symptoms. Patient was also informed that any type of corticosteroid of any form (oral or injection) will decrease the patient's immune system response and may increase the likelihood of COVID19 [address] symptoms[address] Fitch has reviewed this note and agrees with this plan of care. This note was dictated using voice recognition software and make contain errors or omissions. [facility] History I have reviewed the patient's past medical history: Yes Medical History: Reports:: Depression, Gastroesophageal Reflux Disease(GERD), Hyperlipidemia, Hypertension Denies:: Cancer, Diabetes Mellitus Type 1, Diabetes Mellitus Type 2, Internal Pacemaker, MRSA, Seizures *Have you ever received a pneumonia vaccine?: Yes *Have you received a flu vaccine this season?: Yes Other
== END ==
PROVIDERS: PCP Nurse Practitioner Family; Visit Provider Clinical Nurse Specialist Family Health
DX: M51.16 Intervertebral disc disorders with radiculopathy, lumbar region (principal); M50.10 Cervical disc disorder with radiculopathy, unspecified cervical region
CPT/HCPCS: 99212

== ENCOUNTER → 2020-04-02 11:36 | Outpatient (CLI) | payer MEDICAID, SELFPAY ==
[2020-04-02 21:26] LABS: Covid-19 Nasal PCR Sendout Lex Not Detected
== END ==
PROVIDERS: PCP Nurse Practitioner Family; Visit Provider Nurse Practitioner Family
DX: Z03.818 Encounter for observation for suspected exposure to other biological agents ruled out (principal)
CPT/HCPCS: U0004

== ENCOUNTER → 2020-05-08 10:01 | Outpatient (POV) | payer MEDICAID, SELFPAY ==
[2020-05-08 10:03] VITALS: BP 133/78; PULSE 74; RESP 18; TEMP 36.3; O2SAT 98; BMI 39.4
--- NOTE | 2020-05-08 10:28 | HMH.PAINSOAP ---
[facility] Pain Management SOAP Note Subjective:: Patient is a 49-year-old white female who presents today for follow-up. Patient is having chronic left low back pain with radiation into her left hip down her left leg. Patient says this has been an ongoing issue for her. She has been treated in the clinic before with SI stabilization procedure. She has chronic low back pain with lumbar radicular symptoms. She recently had to her cervical spine with Dr. Cao. She says this was performed early April. She is scheduled to see him again on May 26. Patient says that her pain in her left hip is severe to the point she is unable to stand or walk or lift her left leg. She says she is afraid she is going to fall. She does report that leaning forward gives her relief. She had discussed undergoing an epidurogram in the past, however, due to surgery she had to postpone this. She is not on any anticoagulation therapy. She has undergone lumbar epidural steroid injections in the past but did not get relief. She has discussed possible Vertiflex procedure in the past. She does rate her pain a 6 out of 10 today. Review of Systems General: No recent weight changes, no fever, no sleep disturbances Respiratory: No cough, no shortness of air, no recurring pulmonary infections Cardiovascular/peripheral vascular: No chest pain, no palpitations, no edema, no shortness of breath Gastrointestinal: No new onset incontinence, normal bowel movements reported Genitourinary: No new onset incontinence Musculoskeletal: Left low back pain radiating into left hip and left leg Psychiatric: Normal mood/affect Neurological: [Denies weakness in extremities], [denies balance issues] Objective:: Physical exam General: Alert and oriented x3, no acute distress, pleasant and cooperative, [on room air] Lungs: Respirations even and unlabored, symmetrical chest expansion Eyes: PERRL Musculoskeletal: Flexion and extension of lumbar spine somewhat guarded secondary to pain, deep tendon reflexes normal, strength in upper and lower extremities [5/5], [abnormal gait noted] Neurological: Speech clear, flagsetter equal, no gross sensory deficit Assessment:: Degenerative disc disease lumbar spine with lumbar radiculopathy symptoms, spinal stenosis with neurogenic claudication symptoms Plan:: Patient I did discuss the epidural with epidurogram at L4-L5. She would like to proceed with this. She has had conservative therapies of injections, anti-inflammatories, and physical therapy for greater than 6 weeks. She has had months of conservative therapies with no relief. We also discussed possible implanted devices if she is not a candidate for Vertiflex. Patient was given educational information today regarding the Vertiflex, spinal cord stimulator, as well as intrathecal therapy. These may all be good options for her in the future. She is interested in all options and will discuss these with Dr. MARBELLA Vega at her next appointment. She is not on any anticoagulation therapy. We will see her back after her injection to reassess her symptoms and discuss a further plan of care. She has been instructed to contact clinic if she has an concerns for next appointment. Risks and benefits of the procedure were explained to the patient. She would like to proceed with the injection and epidurogram. The patient and I specifically discussed risk factors for COVID19. These risks include, but are not limited to age greater than 60, heart or lung disease, diabetes, immunosuppression, and travel. We also discussed NSAIDs may worsen COVID19 infection or symptoms. Patient should not use NSAIDs to treat COVID19 signs or symptoms. Patient was also informed that any type of corticosteroid of any form (oral or injection) will decrease the patient's immune system response and may increase the likelihood of COVID19 [address] Fitch has reviewed this note and agrees with this plan of care. Thi
== END ==
PROVIDERS: PCP Nurse Practitioner Family; Visit Provider Clinical Nurse Specialist Family Health
DX: M51.16 Intervertebral disc disorders with radiculopathy, lumbar region (principal); M48.062 Spinal stenosis, lumbar region with neurogenic claudication
CPT/HCPCS: 99212

== ENCOUNTER → 2020-05-13 08:32 | Outpatient (CLI) | payer MEDICAID, SELFPAY ==
--- NOTE | 2020-05-13 08:36 | MM_ITS ---
PROCEDURE: MM DIG SCREENING MAMM BI W/CAD Digital Breast Tomosynthesis Included CLINICAL INDICATION: SCREENING There is no personal or family history of breast cancer. Patient currently is on estroven COMPARISON: MG DXLT MM Dig mamm DX unilat LT CAD from 10/12/2017 MG MM DIG SCREENING MAMM BI W/CAD from 02/13/2019 MG MM DIG MAMM DX UNILAT RT CAD from 02/26/2019 TECHNIQUE: Standard CC and MLO images and 3D Tomosynthesis was obtained. R2 CAD reviewed. FINDINGS: Mild diffuse fibroglandular densities are seen throughout both breast and the findings are fairly symmetrical and bilateral. There is no suspicious lesion and no suspicious microcalcifications. IMPRESSION: Fibrofatty parenchyma with no suspicious lesions seen BI-RAD Category: 1 Negative FOLLOW-UP: 1YR 1 Year Follow-up (A letter has been sent to the patient regarding results of the study.) Dictated by: Dr. Franco Galan MD 05/16/2020 18:31 Dr. Franco Galan MD in [place] 05/16/2020 18:31
== END ==
PROVIDERS: PCP Nurse Practitioner Family; Visit Provider Nurse Practitioner Family
DX: Z12.31 Encounter for screening mammogram for malignant neoplasm of breast (principal)
CPT/HCPCS: 77063; 77067

== ENCOUNTER 2020-05-30 09:50 | Day surgery (SDC) | payer MEDICAID, SELFPAY ==
[2020-05-30 09:52] VITALS: BP 133/78; PULSE 64; RESP 19; TEMP 36.7; O2SAT 100; BMI 36.0
[2020-05-30 10:41] VITALS: BP 131/87; PULSE 71; RESP 18; O2SAT 100
[2020-05-30 10:42] VITALS: BP 132/88; PULSE 79; RESP 18; O2SAT 99
[2020-05-30 10:55] VITALS: BP 139/86; PULSE 73; RESP 18; O2SAT 98
--- NOTE | 2020-05-30 11:20 | HMH.PMPROC ---
- Procedure Date: 05/30/20 Time: 11:20 Anesthesiologist:: Pal Fitch MD Complications:: None Pre-procedure Diagnosis:: Degenerative disc disease of lumbar spine with lumbar radiculopathy symptoms Post-procedure Diagnosis:: Same Indications for Procedure:: This patient is a pleasant 49-year-old white female who we are treating for low back pain and leg pain. She does have some increasing pain in her low back radiating to her right hip. She is status post SI joint stabilization with painteq. Her implant continues to be in good position. Doing well after her cervical spine surgery. She no longer has any headaches or neck pain. We will do a lumbar epidural steroid injection today to see if this will help with her some of her pain symptoms. Procedure Details:: Lumbar epidural steroid injection under fluoroscopy informed consent was obtained and the risk and benefits of the procedure was explained to the patient. The patient was taken to the procedure room. The patient was placed prone on the procedure table. The patient was prepped and draped in sterile fashion. C-arm fluoroscopy was used to view the lumbar spine. Skin and subcutaneous tissues were anesthetized using lidocaine. I placed an 18-gauge epidural needle and advanced into the L4-L5 interspace using fluoroscopic guidance and [id number] to air. After confirmation of needle placement in the epidural space with dye I injected 2 mL of lidocaine 1.5% with Depo-Medrol 80 mg. Patient tolerated the procedure well with no complications. Plan and Disposition:: We will follow-up with her in 2 weeks. Will reevaluate symptoms at that time. If she still has significant symptoms into her right hip and right leg she may be a candidate for spinal cord stimulation. We will certainly explore this option if she still has some pain.
== END 2020-05-30 10:55 | disposition home or self-care (01) ==
LOC: SC.PAINP 09:51
PROVIDERS: PCP Nurse Practitioner Family; Visit Provider Anesthesiology
DX: M51.16 Intervertebral disc disorders with radiculopathy, lumbar region (principal); I10 Essential (primary) hypertension; K21.9 Gastro-esophageal reflux disease without esophagitis; E78.5 Hyperlipidemia, unspecified; Z85.43 Personal history of malignant neoplasm of ovary; F41.9 Anxiety disorder, unspecified; F32.9 Major depressive disorder, single episode, unspecified; Z79.899 Other long term (current) drug therapy
CPT/HCPCS: 62323; J1040; Q9966

== ENCOUNTER → 2020-06-23 09:15 | Outpatient (POV) | payer MEDICAID, SELFPAY ==
--- NOTE | 2020-06-23 09:37 | HMH.VVPMSO ---
[facility] Virtual Visit SOAP Consent for virtual visit:: With the recent concerns about the COVID-19, we are trying to minimize exposure to you by shifting to telehealth appointments whenever possible. It restricts me from seeing you in person, but the trade off is protecting you during this pandemic. Can you see and hear me okay, and do you consent to this option? If not, I would be happy to see if we can reschedule your appointment in the future, when feasible. Has patient consented to this virtual visit?: Yes Subjective:: Patient is a 49-year-old white female who we are treating for low back pain and leg pain. She had a lumbar epidural steroid injection which gave her no relief. Patient has had multiple epidurals with no relief. Patient did have an SI joint stabilization however this did not help with her back and hip pain. Patient has seen Dr. Cao in the past and had surgery on her neck she would like an evaluation on her lower back. We will order an MRI if necessary. We will send her to Dr. Cao for consultation. She rates her pain today a 8 out of 10. Objective:: Physical exam: Constitutional: Healthy appearing, well-developed, alert, in no acute distress Psychiatric: Judgment and insight intact, Alert and oriented x4 Mood and affect: Mood normal, affect appropriate Head and face: Inspection: Normocephalic atraumatic, extraocular movement intact Respiratory: Breathing nonlabored, nondyspneic Cardiovascular: No cyanosis, clubbing, or edema observed Skin: Head and neck: Skin with no lesions or rash observed Gait: Able to walk without assistive device: Able to heel and toe walk Neurologic: Sensation grossly intact per patient Musculoskeletal: Decreased range of motion lumbar spine Assessment:: Degenerative disc disease lumbar spine with lumbar radiculopathy and back pain Plan:: We will contact Dr. Cao's office to see if she needs an updated MRI we will also set up a consultation for her lower back pain. Patient may be a candidate for a neurostimulator if she is not a candidate for surgery. I will follow-up with her after this reassess her symptoms at that time she has been instructed to call the office if she has any issues prior to her next appointment. Dr. Fitch has reviewed this note and agrees with this plan of care. This note was dictated using voice recognition software and may contain errors or omissions This encounter was performed as a telemedicine visit via secure 2 way video and audio to minimize risk and transmission of Covid-19. The patient and we understand the limitations of a telemedicine visit including inability to check reflexes, possibly missing subtle findings on physical exam. Alternative options were presented to the patient and the patient elected to proceed with the visit. We specifically discussed risk factors for Covid-19 including age, heart or lung disease, diabetes, immunosuppression and travel. We also discussed that NSAIDs may worsen Covid-19 infection symptoms and that they should not be used to treat Covid-19 symptoms. Patient was also informed that corticosteroids in any form oral or injectable will decrease immune response and may increase risk of Covid-[address] Fitch has reviewed this patient's chart and this note and agrees with plan of care. Patient has been instructed to call the office if they have any issues prior to the next appointment. Time In:: 09:20 Time Out:: 09:30 [facility] History I have reviewed the patient's past medical history: Yes Medical History: Reports:: Depression, Gastroesophageal Reflux Disease(GERD), Hyperlipidemia, Hypertension Denies:: Cancer, Diabetes Mellitus Type 1, Diabetes Mellitus Type 2, Internal Pacemaker, MRSA, Seizures *Have you ever received a pneumonia vaccine?: No *Have you received a flu vaccine this season?: No Other Medical History: Denies: Blood Transfusion Reaction Laterality Cases: Right: Arthroscopy Knee Other Surgeries: Yes: Cholecys
== END ==
PROVIDERS: PCP Nurse Practitioner Family; Visit Provider Clinical Nurse Specialist Family Health
DX: M51.16 Intervertebral disc disorders with radiculopathy, lumbar region (principal)
CPT/HCPCS: 99212; G0463

== ENCOUNTER → 2020-06-30 10:45 | Outpatient (CLI) | payer MEDICAID, SELFPAY ==
--- NOTE | 2020-06-30 10:54 | MR_ITS ---
PROCEDURE: MR LUMBAR SPINE WO CON CLINICAL INDICATION: BACK PAIN Intermittent rt hip pain x1yr. No injury. Lbp. Prior mri 02-09-18 COMPARISON: None TECHNIQUE: Standard multiplanar multiecho sequences are performed without contrast. 3-D MIP and myelographic images are also rendered and reviewed FINDINGS: There is normal alignment. Spinal cord ends at the L1 level. L1-L2: Unremarkable. L2-L3: Minimal bulging disc with a small right paracentral broad-based disc protrusion with mild right lateral recess narrowing abutting the right L3 nerve root anteriorly. L3-L4: Mild degenerative disc disease with mild facet and ligamentum hypertrophy. L4-5: Mild degenerative disc disease with mild bulging disc and facet and ligamentum hypertrophy with mild bilateral foraminal narrowing and mild right lateral recess narrowing. The bulging disc is slightly eccentric toward the right. L5-S1: There is a minimal bulging disc. Small annular fissure in the left paracentral region. There is mild facet and ligamentum hypertrophic change with mild left-sided foraminal narrowing. IMPRESSION: 1. L2-L3: Minimal bulging disc with a small right paracentral broad-based disc protrusion with mild right lateral recess narrowing abutting the right L3 nerve root anteriorly. 2. L3-L4: Mild degenerative disc disease with mild facet and ligamentum hypertrophy. 3. L4-5: Mild degenerative disc disease with mild bulging disc and facet and ligamentum hypertrophy with mild bilateral foraminal narrowing and mild right lateral recess narrowing. The bulging disc is slightly eccentric toward the right. 4. L5-S1: There is a minimal bulging disc. Small annular fissure in the left paracentral region. There is mild facet and ligamentum hypertrophic change with mild left-sided foraminal narrowing. Dictated by: Celio Fu MD 07/01/2020 14:16 Celio Fu MD in [place] 07/01/2020 14:16
== END ==
PROVIDERS: PCP Nurse Practitioner Family; Visit Provider Clinical Nurse Specialist Family Health
DX: M54.5 Low back pain (principal)
CPT/HCPCS: 72148; 76376

== ENCOUNTER → 2020-07-17 15:03 | Outpatient (POV) | payer MEDICAID, SELFPAY ==
--- NOTE | 2020-07-17 | XR_ITS ---
PROCEDURE: XR SACROILIAC JOINT BI MIN 3V CLINICAL INDICATION: HIP PAIN COMPARISON: CR KUB KUB (SINGLE VIEW) from 10/15/2016 FINDINGS: Mild osteoarthritic changes of both SI joints. There is a screw area of sclerosis involving the mid sacral region on the right at the SI joint area. There is an IUD in place. Other findings:None. IMPRESSION: Mild osteoarthritic changes of the SI joints with a focal sclerotic area in the mid sacral region laterally on the right possibly due to an osteophyte/bony exostosis. Dictated by: Celio Fu MD 07/17/2020 16:15 Celio Fu MD in [place] 07/17/2020 16:15
--- NOTE | 2020-07-17 | XR_ITS ---
PROCEDURE: XR HIP RT 2-3V W/PELVIS CLINICAL INDICATION: HIP PAIN COMPARISON: CR XR HIP RT 2-3V W/PELVIS from 11/12/2019 FINDINGS: No fracture or dislocation. No lytic or blastic change. Minimal osteoarthritic change of the hips.. There is a small os acetabulum as a normal variant. Sclerosis with osteoarthritis once again noted involving the right SI joint with a sclerotic density overlying the mid sacrum laterally as before. There is also osteoarthritic change of the left SI joint. There is an IUD in place IMPRESSION: Osteoarthritic changes of the SI joints with sclerotic density in the mid sacral region. Minimal osteoarthritic change of the hips Overall no significant change from 11/12/2019 Dictated by: Celio Fu MD 07/17/2020 16:13 Celio Fu MD in [place] 07/17/2020 16:13
[2020-07-17 15:11] VITALS: BP 147/93; PULSE 80; RESP 20; TEMP 36.4; O2SAT 100; BMI 36.8
--- NOTE | 2020-07-17 15:28 | HMH.PAINSOAP ---
[facility] Pain Management SOAP Note Subjective:: Patient is a pleasant 49 female who presents today for follow-up after her visit with Dr. Cao. She was deemed not a surgical candidate. Patient is still unsure if she like to move forward with a neurostimulator. Patient is having so much right hip pain I do believe an x-ray and orthopedic evaluation would benefit her. She rates her to 9 out of 10. She did have a pain tech SI joint stabilization on that side. I will get x-rays of her right SI joint and right hip. ROS General: no recent weight change, no fever, no sleep disturbances Respiratory: no cough, no shortness of air, no recurring pulmonary infections Cardiovascular/Peripheral Vascular: No chest pain, No palpitations, no edema, no shortness of breath. Gastrointestinal: no new onset incontinence, normal bowel movements reported Genitourinary: no new onset incontinence Musculoskeletal: Back pain, right hip pain Psychiatric: normal mood/ affect Neurological: [denies new onset weakness in extremities], [denies new onset balance issues] Objective:: Physical Exam General: Alert and oriented x3, no acute distress, pleasant and cooperative, [on room air] Lungs: Resps E/U, Symmetrical chest expansion, Eyes: PERRL Musculoskeletal: Flexion and extension of lumbar spine somewhat guarded secondary to pain, deep tendon reflexes normal, strength in upper and lower extremities [5/5], [abnormal gait noted] Neurological: speech clear, shift supervisor film processing equal, no gross sensory deficits Assessment:: Right hip pain, sacroiliitis, back pain, degenerative disc disease lumbar spine lumbar radiculopathy Plan:: We will get right hip x-rays and right SI joint x-rays of the patient to see if there is any issues if they are we will send her to Dr. Esposito at for evaluation. Patient's been instructed to call the office if she has any issues prior to her next appointment. Dr. Fitch has reviewed this note and agrees with this plan of care. This note was dictated using voice recognition software and may contain errors or omissions [facility] History I have reviewed the patient's past medical history: Yes Medical History: Reports:: Depression, Gastroesophageal Reflux Disease(GERD), Hyperlipidemia, Hypertension Denies:: Cancer, Diabetes Mellitus Type 1, Diabetes Mellitus Type 2, Internal Pacemaker, MRSA, Seizures *Have you ever received a pneumonia vaccine?: No *Have you received a flu vaccine this season?: No Other Medical History: Denies: Blood Transfusion Reaction Laterality Cases: Right: Arthroscopy Knee Other Surgeries: Yes: Cholecystectomy, Tubal Ligation, Other (tendon release R/nose reset). No: Pacemaker Amputation: No Fractures: No - *Social History Smoking Status: Never smoker Alcohol Intake: never Substance Use Type: denies use *Occupational Status:: employed Housing: house Household Members: significant other *Travel in the last 8 weeks: None - Psychiatric History Pschychiatric History:: Reports:: Depression Family Hx:: Unable to obtain
== END ==
PROVIDERS: Visit Provider Clinical Nurse Specialist Family Health
DX: M46.1 Sacroiliitis, not elsewhere classified (principal); M51.16 Intervertebral disc disorders with radiculopathy, lumbar region; M25.551 Pain in right hip
CPT/HCPCS: 72202; 73502; 99212; G0463

== ENCOUNTER → 2020-08-07 11:32 | Outpatient (POV) | payer MEDICAID, SELFPAY ==
[2020-08-07 12:04] VITALS: BP 125/85; PULSE 75; RESP 18; O2SAT 98; BMI 37.5
--- NOTE | 2020-08-07 12:26 | HMH.PAINSOAP ---
[facility] Pain Management SOAP Note Subjective:: Patient is a pleasant 49-year-old white female who presents today for follow-up. Patient has been seen by Dr. Cao and Dr. Esposito and was deemed not a surgical candidate. Patient would like to move forward with a neurostimulator. She is having much right hip pain. Patient rates her pain today a 3 out of 10. Patient did have an SI joint stabilization. Patient's pain is mostly in her low back and her right leg. ROS General: no recent weight change, no fever, no sleep disturbances Respiratory: no cough, no shortness of air, no recurring pulmonary infections Cardiovascular/Peripheral Vascular: No chest pain, No palpitations, no edema, no shortness of breath. Gastrointestinal: no new onset incontinence, normal bowel movements reported Genitourinary: no new onset incontinence Musculoskeletal: Right leg pain, right hip pain Psychiatric: normal mood/ affect Neurological: [denies new onset weakness in extremities], [denies new onset balance issues] Objective:: Physical Exam General: Alert and oriented x3, no acute distress, pleasant and cooperative, [on room air] Lungs: Resps E/U, Symmetrical chest expansion, Eyes: PERRL Musculoskeletal: Flexion and extension of lumbar spine somewhat guarded secondary to pain, deep tendon reflexes normal, strength in upper and lower extremities [5/5], [abnormal gait noted] Neurological: speech clear, trauma therapist equal, no gross sensory deficits Assessment:: Degenerative disc disease lumbar spine lumbar radiculopathy, sacroiliitis, right hip pain, back pain Plan:: We will send the patient for psychological evaluation to determine if she is a candidate for neuro stimulation. I will follow-up with her afterwards reassess her symptoms at that time she has been instructed to call the office if she has any issues or to her next appointment. Dr. Fitch has reviewed this note and agrees with this plan of care. This note was dictated using voice recognition software and may contain errors or omissions [facility] History I have reviewed the patient's past medical history: Yes Medical History: Reports:: Depression, Gastroesophageal Reflux Disease(GERD), Hyperlipidemia, Hypertension Denies:: Cancer, Diabetes Mellitus Type 1, Diabetes Mellitus Type 2, Internal Pacemaker, MRSA, Seizures *Have you ever received a pneumonia vaccine?: Yes *Have you received a flu vaccine this season?: Yes Other Medical History: Denies: Blood Transfusion Reaction Laterality Cases: Right: Arthroscopy Knee Other Surgeries: Yes: Cholecystectomy, Tubal Ligation, Other (tendon release R/nose reset). No: Pacemaker Amputation: No Fractures: No - *Social History Smoking Status: Never smoker Alcohol Intake: never Substance Use Type: denies use *Occupational Status:: other Housing: house Household Members: significant other *Travel in the last 8 weeks: None - Psychiatric History Pschychiatric History:: Reports:: Depression Family Hx:: Unable to obtain
== END ==
PROVIDERS: PCP Nurse Practitioner Family; Visit Provider Clinical Nurse Specialist Family Health
DX: M51.16 Intervertebral disc disorders with radiculopathy, lumbar region (principal); M46.1 Sacroiliitis, not elsewhere classified; M25.551 Pain in right hip
CPT/HCPCS: 99212; G0463

== ENCOUNTER 2020-08-13 22:03 | Emergency (ER) | payer MEDICAID, SELFPAY ==
[2020-08-13 22:04] VITALS: BP 118/77; PULSE 82; RESP 16; TEMP 36.9; O2SAT 98; BMI 36.8
--- NOTE | 2020-08-13 22:33 | XR_ITS ---
PROCEDURE: XR KNEE LT 3V CLINICAL INDICATION: accident, posttraumatic pain COMPARISON: No exams were available for comparison FINDINGS: No fracture or dislocation. No lytic or blastic change. There is normal mineralization. There are mild tricompartmental osteoarthritic changes. Other findings:None. IMPRESSION: Osteoarthritis, no acute fracture Dictated by: Celio Fu MD 08/14/2020 05:30 Celio Fu MD in [place] 08/14/2020 05:30
--- NOTE | 2020-08-13 23:54 | HMH.EDLOEX ---
ED Disposition Clinical Impression: Knee pain, left Qualifiers: Chronicity: acute Qualified Code(s): M25.562 - Pain in left knee Disposition: Home, Self-Care Condition on Discharge: Good Instructions: DI for Knee Pain Additional Instructions: ice and call pcp for follow up Referrals: Shari Birmingham [Primary Care Provider] - - Critical Care Critical Care Time: No Attestation: On 08/13/20, the high probability of a clinically significant, sudden or life threatening deterioration of the following system(s) required my full and direct attention, intervention and personal management. The time I documented below is in addition to time spent performing reported procedures but includes the following listed in this critical care notation. Medical Decision Making - Medical Records Medical records reviewed: Yes: I reviewed the patient's medical records. - Ryan Inquiry Pt receiving controlled substance: No Vital Signs: 08/13/20 22:04 Temperature 98.5 F Temperature Source Oral Pulse Rate [Right] 82 Respiratory Rate 16 Blood Pressure [Right Arm] 118/77 Blood Pressure Mean [Right Arm] 90 02 Sat by Pulse Oximetry 98 Orders (Tests/Meds): ORDERS Category Date Time Status XR knee LT 3V Stat Exams 08/13/20 22:33 Taken - Radiology Data #1 Image(s): Knee Image Reviewed: Yes I reviewed the patient's radiology image Preliminary Findings: No Fracture Seen Medical Decision Narrative: no fx but possible bakers cyst rupture Lower Extremity Injury HPI - General Chief Complaint: Extremity Injury, Lower Stated Complaint: left knee pain Time Seen by Provider: 08/13/20 23:00 Mode of Arrival: Wheelchair Source of Information: Patient, Significant Other, Medical Record Limitations: No Limitations Description of Symptoms (Recalled from ER Triage Doc. by RN): pt states got out of truck and walked out front and feel lt knee pop. pt c/o of lt knee pain - History of Present Illness HPI Narrative: walking and felt pop and pain behind lt knee - increased with wt bearing - occurred roger LAWRENCE complaint: knee injury Onset (ago): hour(s) Injury: Left: knee Type of Injury: unknown Place: home Severity: moderate Context: walking Associated symptoms: snap/pop sensation, able to partially bear weight Other symptoms: none - Related Data Home Medications Medication Instructions Recorded Confirmed Cetirizine HCl [Zyrtec] 10 mg PO DAILY 05/15/17 07/17/20 Cholecalciferol (Vitamin D3) 5,000 unit PO DAILY 05/15/17 07/17/20 [Vitamin D3 1,000 Unit Tab] Esomeprazole Magnesium [Nexium 40 mg PO DAILY 05/15/17 07/17/20 24Hr] Lysine HCl [l-Lysine] 500 mg PO DAILY 05/15/17 07/17/20 Oxybutynin Chloride [Ditropan Xl] 5 mg PO DAILY 05/15/17 07/17/20 buPROPion HCL [Wellbutrin Xl] 450 mg PO DAILY 05/15/17 07/17/20 lisinopriL [Lisinopril 10mg Tab] 10 mg PO DAILY 05/15/17 07/17/20 Meloxicam [Mobic] 15 mg PO DAILY 12/31/17 07/17/20 Rosuvastatin Calcium 10 mg PO HS 07/28/18 07/17/20 Mometasone Furoate [Nasonex] 2 sprays NS DAILY 11/23/19 07/17/20 Potassium 99 mg PO DAILY 11/23/19 07/17/20 Gabapentin [Neurontin 100mg 100 mg PO TID 02/29/20 07/17/20 cap] Diclofenac Potassium [Diclofenac 50 mg PO BID 07/17/20 07/17/20 50mg Tab] Previous Rx's Medication Instructions Recorded Ibuprofen [Ibuprofen 600mg 600 mg PO Q6HP PRN #30 tab 11/23/18 Tablet] Ondansetron [Zofran 4mg ODT] 4 mg PO Q6H PRN #12 tab.rapdis 06/17/19 Promethazine HCl [Phenergan 12.5mg 12.5 mg PO Q6H PRN #12 tab 06/17/19 tablet] Meclizine HCl [Meclizine 25mg Tab] 25 mg PO TID PRN 10 Days #30 tab 11/07/19 Cyclobenzaprine HCl [Flexeril 10mg 10 mg PO Q8HP PRN 30 Days #90 tab 12/13/19 tablet] Allergies Allergy/AdvReac Type Severity Reaction Status Date / Time No Known Allergies Allergy Verified 07/17/20 15:11 [facility] History - Hepatitis A Screen Drug use history?: No High risk sexual behaviors?: No History o
[2020-08-14 00:04] VITALS: BP 120/72; PULSE 80; RESP 16; TEMP 36.9; O2SAT 97
== END 2020-08-14 00:06 | disposition home or self-care (01) ==
PROVIDERS: Emergency Provider Emergency Medicine; PCP Nurse Practitioner Family
DX: M25.562 Pain in left knee (principal); I10 Essential (primary) hypertension; K21.9 Gastro-esophageal reflux disease without esophagitis; E78.5 Hyperlipidemia, unspecified; Z87.891 Personal history of nicotine dependence
CPT/HCPCS: 29505; 73562; 99284

== ENCOUNTER 2020-09-11 10:00 | Outpatient (RCR) | payer MEDICAID, SELFPAY | END 2020-09-11 13:56 | disposition home or self-care (01) | LOC: OT 10:00 | PROVIDERS: PCP Nurse Practitioner Family; Visit Provider Physician Assistant | DX: M75.01 Adhesive capsulitis of right shoulder (principal) | CPT/HCPCS: 97014; 97110; 97140; 97165; 97530; G0283 ==

== ENCOUNTER → 2020-09-18 15:25 | Outpatient (POV) | payer MEDICAID, SELFPAY ==
[2020-09-18 16:02] VITALS: BP 133/88; PULSE 77; RESP 18; O2SAT 98; BMI 39.9
--- NOTE | 2020-09-25 09:05 | HMH.PAINSOAP ---
[facility] Pain Management SOAP Note Subjective:: Patient is a pleasant 50-year-old white female who presents today for follow-up after she was seen by Dr. Cao's office. Patient is awaiting a neurostimulator trial. Patient has had a denial from insurance. Patient was seen by Dr. Cao however was not specific in the note if she was a candidate for surgical intervention. We will clarify and resubmit for a neurostimulator. She tried and failed multiple modalities of treatment including medications, anti-inflammatories, SI joint stabilization. She is having low back and leg pain. ROS General: no recent weight change, no fever, no sleep disturbances Respiratory: no cough, no shortness of air, no recurring pulmonary infections Cardiovascular/Peripheral Vascular: No chest pain, No palpitations, no edema, no shortness of breath. Gastrointestinal: no new onset incontinence, normal bowel movements reported Genitourinary: no new onset incontinence Musculoskeletal: Back pain, leg pain Psychiatric: normal mood/ affect Neurological: [denies new onset weakness in extremities], [denies new onset balance issues] Objective:: Physical Exam General: Alert and oriented x3, no acute distress, pleasant and cooperative, [on room air] Lungs: Resps E/U, Symmetrical chest expansion, Eyes: PERRL Musculoskeletal: Flexion and extension of lumbar spine somewhat guarded secondary to pain, deep tendon reflexes normal, strength in upper and lower extremities [5/5], [abnormal gait noted] Neurological: speech clear, preformer impregnated fabrics equal, no gross sensory deficits Assessment:: Degenerative disc disease lumbar spine lumbar radiculopathy, back pain Plan:: We will see if we can clarify from the orthopedic surgeon about her potential surgical intervention. We will then appeal the decision to deny her neurostimulator trial. Dr. Fitch has reviewed this note and agrees with this plan of care. This note was dictated using voice recognition software and may contain errors or omissions [facility] History I have reviewed the patient's past medical history: Yes Medical History: Reports:: Depression, Gastroesophageal Reflux Disease(GERD), Hyperlipidemia, Hypertension Denies:: Cancer, Diabetes Mellitus Type 1, Diabetes Mellitus Type 2, Internal Pacemaker, MRSA, Seizures *Have you ever received a pneumonia vaccine?: Yes *Have you received a flu vaccine this season?: Yes Other Medical History: Denies: Blood Transfusion Reaction Laterality Cases: Right: Arthroscopy Knee Other Surgeries: Yes: Cholecystectomy, Tubal Ligation, Other (tendon release R/nose reset). No: Pacemaker Amputation: No Fractures: No - *Social History Smoking Status: Former smoker Alcohol Intake: never Substance Use Type: denies use *Occupational Status:: other Housing: house Household Members: significant other *Travel in the last 8 weeks: None - Psychiatric History Pschychiatric History:: Reports:: Depression Family Hx:: Unable to obtain
== END ==
PROVIDERS: Visit Provider Clinical Nurse Specialist Family Health
DX: M51.16 Intervertebral disc disorders with radiculopathy, lumbar region (principal)
CPT/HCPCS: 99212; G0463

== ENCOUNTER → 2020-09-18 15:56 | Outpatient (CLI) | payer MEDICAID, SELFPAY ==
--- NOTE | 2020-09-18 15:59 | MR_ITS ---
PROCEDURE: MR ELBOW RT WO CON CLINICAL INDICATION: PAIN IN RIGHT ELBOW COMPARISON: No exams were available for comparison TECHNIQUE: Routine multiplanar multi echo sequences are performed without gadolinium enhancement. FINDINGS: Images are slightly degraded due to motion artifact. T2 hyperintensity is noted at the common 8 extensor tendon origin at the medial epicondyle, raises the concern for tendinopathy. No evidence of tears are identified within the limitations of the study. The common flexor tendon origin is unremarkable. The biceps and brachialis tendons are unremarkable without evidence of tendon tears or tendinopathy. The posterior compartment appears unremarkable with normal attachment of the triceps tendon. Bone marrow signal intensity is within normal limits without evidence of marrow infiltrative process. No evidence of acute fractures or bone edema noted. Limited evaluation of the ligaments due to motion artifact. The ulnar collateral ligament is intact. The lateral ulnar collateral demonstrates fraying with minor signal abnormality. Tears cannot be completely excluded. IMPRESSION: Findings are concerning for lateral epicondylitis with signal abnormality at the common extensor tendon. No evidence of complete tear. There is signal abnormality noted at the lateral ulnar collateral ligament with fraying. Tear cannot be excluded on the current motion limited study. Dictated by: Mary Vallejo 09/19/2020 10:53 Mary Vallejo in [place] 09/19/2020 10:53
== END ==
PROVIDERS: PCP Nurse Practitioner Family; Visit Provider Nurse Practitioner Family
DX: M25.521 Pain in right elbow (principal)
CPT/HCPCS: 73221

== ENCOUNTER → 2020-10-08 13:59 | Outpatient (CLI) | payer MEDICAID, SELFPAY ==
--- NOTE | 2020-10-08 14:02 | MR_ITS ---
PROCEDURE: MR KNEE LT WO CON CLINICAL INDICATION: PAIN IN LEFT KNEE Medial left knee pain, lateral knee swelling COMPARISON: CR XR KNEE LT 3V from 08/13/2020 TECHNIQUE: Routine multiplanar multi echo sequences are performed without gadolinium enhancement. FINDINGS: The cruciate ligaments are intact. Collateral ligaments also appear intact. Quadriceps tendon appears intact. There are 2 small areas of slight increased T1 and increased PD signal within the patellar tendon approximately 1 cm below the patella suggesting areas of tendinopathy/tendinosis. There is a oblique area of increased T2 signal involving the posterior horn of the medial meniscus which does appear to continue to the tibial articular surface as well as the posterior free edge of the meniscus consistent with nondisplaced meniscal tear. The lateral meniscus has an unremarkable appearance. There is a small knee joint effusion.. Moderate osteoarthritic changes are present at the patellofemoral joint and there is prominent thinning of the patellar cartilage with mild lateral patellar subluxation of approximately 7 mm. The medial patellofemoral ligament appears intact. Mild osteoarthritic changes are present at the medial and lateral compartments with minimal subchondral cystic changes at the proximal tibia centrally. Varicose veins are noted along the lateral aspect of the subcutaneous soft tissues of the knee IMPRESSION: 1. Suspected nondisplaced horizontal tear of the posterior horn of the medial meniscus 2. Mild osteoarthritic changes of the medial lateral compartment and moderate to severe osteoarthritic changes of the patellofemoral joint with loss of the patellar cartilage laterally and mild lateral patellar subluxation with small knee joint effusion. Dictated by: Celio Fu MD 10/09/2020 09:20 Celio Fu MD in [place] 10/09/2020 09:20
== END ==
PROVIDERS: Visit Provider Orthopaedic Surgery Adult Reconstructive Orthopaedic Surgery
DX: M25.562 Pain in left knee (principal)
CPT/HCPCS: 73721

== ENCOUNTER → 2020-12-10 13:27 | Outpatient (CLI) | payer MEDICAID, SELFPAY ==
[2020-12-10 14:21] LABS: Basophils # 0.1 K/mm3 (0-0.2); Basophils % 1.7 % (0.1-2.0); Eosinophils # 0.2 K/mm3 (0.0-0.4); Eosinophils % 3.4 % (0.1-12.0); Lymphocytes # 2.4 K/mm3 (0.7-4.5); Lymphocytes % 45.5 % (10-50); Mean Corpuscular HGB Conc 33.4 g/dL (31.8-35.4); Mean Corpuscular Hemoglobin 32.1 pg (27.0-31.2); Mean Platelet Volume 7.7 fl (7.4-10.4); Monocytes # 0.5 K/mm3 (0.1-1.0); Monocytes % 8.8 % (1.7-9.3); Neutrophils # 2.2 K/mm3 (1.8-7.8); Neutrophils % 40.5 % (37.0-80.0); Platelet Count 234 K/mm3 (142-424); Red Blood Count 4.38 M/mm3 (4.20-5.40); Red Cell Distribution Width 13.4 % (11.5-17.5); White Blood Count 5.3 K/mm3 (4.8-10.8)
[2020-12-10 16:56] LABS: Chloride 105 mmol/L (98-107); Potassium 4.7 mmoL/L (3.5-5.1); Sodium 141 mmol/L (136-145)
[2020-12-10 16:59] LABS: Blood Urea Nitrogen 15 mg/dl (7-17); Estimated Glomerular Filt Rate 75 ml/min (>60); GFR (African American) 91 ML/MIN (>60); Glucose 81 mg/dl (74-100)
[2020-12-10 22:55] LABS: Anion Gap 13.7 mEq/L (5-15); Carbon Dioxide 27 mmol/L (22.0-30.0)
== END ==
PROVIDERS: Visit Provider Anesthesiology
DX: Z01.812 Encounter for preprocedural laboratory examination (principal); Z11.52 Encounter for screening for COVID-19; U07.1 COVID-19; M51.16 Intervertebral disc disorders with radiculopathy, lumbar region
CPT/HCPCS: 36415; 80048; 85025; U0003

== ENCOUNTER 2020-12-16 11:00 | Outpatient (RCR) | payer MEDICAID, SELFPAY | END 2020-12-30 10:40 | disposition home or self-care (01) | LOC: OT 11:00 | PROVIDERS: Visit Provider Orthopaedic Surgery Adult Reconstructive Orthopaedic Surgery | DX: M77.11 Lateral epicondylitis, right elbow (principal) | CPT/HCPCS: 97010; 97035; 97110; 97140; 97165 ==

== ENCOUNTER 2021-01-20 10:02 | Emergency (ER) | payer MEDICAID, SELFPAY ==
[2021-01-20 10:23] VITALS: BP 122/78; PULSE 91; RESP 16; TEMP 36.6; O2SAT 99; BMI 39.1
[2021-01-20 10:27] VITALS: BP 122/78; PULSE 91; RESP 18; TEMP 36.6
--- NOTE | 2021-01-20 11:09 | HMH.EDUTC ---
[facility] [place] Clinical Impression: Bronchitis Sinusitis Qualifiers: Sinusitis location: unspecified location Chronicity: acute Recurrence: non-recurrent Qualified Code(s): J01.90 - Acute sinusitis, unspecified Disposition: Home, Self-Care Condition on Discharge: Good Instructions: DI for Sinusitis, DI for Acute Bronchitis Additional Instructions: Drink plenty of fluids. Take tylenol or ibuprofen for pain or fever. Take the medications as directed. Follow up with your regular doctor. GO TO THE ER FOR ANY WORSENING SYMPTOMS Don't start the oral steroids until tomorrow, since you had the shot here today. The cough medication (promethazine dm) will make you drowsy, so don't drive or operate heavy machinery after taking it. Prescriptions: Promethazine/Dextromethorphan [Promethazine-Dm Syrup] 5 ml PO Q6HP PRN #240 ml PRN Reason: Cough Transmission Status: Received by [facility] Amoxicillin/Potassium Clav [Augmentin 875-125 Tablet] 1 tab PO Q12H 10 Days #20 tab Transmission Status: Received by [facility] Fluconazole [Diflucan 150mg tab] 150 mg PO ONCE #1 tab Transmission Status: Received by [facility] predniSONE [Prednisone 20mg Tab] 20 mg PO BID 4 Days #8 tab Transmission Status: Received by [facility] Referrals: Shari Birmingham [Primary Care Provider] - Time of Disposition: 11:29 Medical Decision Making - Medical Records Medical records reviewed: No: I reviewed the patient's medical records. - Ryan Inquiry Pt receiving controlled substance: No Vital Signs: 01/20/21 10:23 01/20/21 10:27 Temperature 98 F 98 F Temperature Source Oral Pulse Rate 91 H Pulse Rate [Left] 91 H Respiratory Rate 16 18 Blood Pressure 122/78 Blood Pressure [Right Arm] 122/78 Blood Pressure Mean [Right Arm] 92 02 Sat by Pulse Oximetry 99 Orders (Tests/Meds): ED MEDICATIONS Discontinued Medications Generic Name Dose Route Start Last Admin Trade Name Freq PRN Reason Stop Dose Admin Ceftriaxone Sodium 1 gm 01/20/21 11:09 01/20/21 11:23 Ceftriaxone 1gm Vial IM 01/20/21 11:10 1 gm ONCE ONE Administration Lidocaine HCl 0 ml 01/20/21 11:09 01/20/21 11:23 Lidocaine 1% 5ml Pf Vial IM 01/20/21 11:10 2.1 ml ONCE ONE Administration Methylprednisolone Sodium Succinate 125 mg 01/20/21 11:01/20/21 11:23 Methylprednisolone Sod Succ 125mg Vial IM 01/20/21 11:10 125 mg ONCE ONE Administration [facility] [place] - General Stated complaint: sinus infection 2 weeks ago persistent cough Time Seen by Provider: 01/20/21 11:10 Mode of Arrival: Ambulatory Source of Information: Patient Limitations: No Limitations Description of Symptoms (Recalled from Triage Doc. by RN): pt c/o cough and a sinus infection. pt tested positive for covid one month ago. HEENT Symptoms (Recalled from RN notes): Yes (sinus pressure and congestion) Resp Symptoms (Recalled from RN notes): Yes (cough) Skin Symptoms (Recalled from RN notes): No MS Symptoms (Recalled from RN notes): No Functional Status (Recalled from RN notes): na - History of Present Illness Provider Complaint: She reports that she has sinus infection symptoms around 2 weeks ago. Since then, those symptoms did get some better, but now she is coughing and having worsening sinus and chest congestion. - Related Data Home Medications Medication Instructions Recorded Confirmed Esomeprazole Magnesium [Nexium 40 mg PO DAILY 05/15/17 12/09/20 24Hr] Oxybutynin Chloride [Ditropan Xl] 5 mg PO DAILY 05/15/17 12/09/20 buPROPion HCL [Wellbutrin Xl] 450 mg PO DAILY 05/15/17 12/09/20 lisinopriL [Lisinopril 10mg Tab] 10 mg PO DAILY 05/15/17 12/09/20 Rosuvastatin Calcium 10 mg PO HS 07/28/18 12/09/20 Sertraline HCl [Zoloft 50mg tablet] 50 mg PO DAILY 12/09/20 12/09/20 Previous Rx's Medication Instructions Recorded Amoxicillin/Potassium Clav 1 tab PO Q12H 10 Days #20 tab 01/20/21 [Augmentin 875
== END 2021-01-20 11:32 | disposition home or self-care (01) ==
PROVIDERS: Emergency Provider Nurse Practitioner Family; PCP Nurse Practitioner Family
DX: J01.90 Acute sinusitis, unspecified (principal); J20.9 Acute bronchitis, unspecified; K21.9 Gastro-esophageal reflux disease without esophagitis; E78.5 Hyperlipidemia, unspecified; I10 Essential (primary) hypertension; Z79.899 Other long term (current) drug therapy
CPT/HCPCS: 96372; 99202; G0463

== ENCOUNTER 2021-03-25 10:00 | Outpatient (RCR) | payer MEDICAID, SELFPAY | END 2021-04-13 08:05 | disposition home or self-care (01) | LOC: PT.CARL 10:00 | PROVIDERS: Visit Provider Orthopaedic Surgery Adult Reconstructive Orthopaedic Surgery | DX: S83.242D Other tear of medial meniscus, current injury, left knee, subsequent encounter (principal) | CPT/HCPCS: 97010; 97014; 97033; 97110; 97163; G0283 ==

== ENCOUNTER → 2021-04-27 10:22 | Outpatient (POV) | payer MEDICAID, SELFPAY ==
[2021-04-27 10:54] VITALS: BP 152/93; PULSE 74; RESP 18; O2SAT 99; BMI 39.1
--- NOTE | 2021-04-27 11:32 | HMH.PAINSOAP ---
[facility] Pain Management SOAP Note Subjective:: Patient is a 50-year-old white female who presents today for follow-up and to schedule a spinal cord stimulator trial. She was seen in the clinic on 11/25/2020. She was scheduled for a spinal cord stimulator trial for degenerative disc disease lumbar spine with lumbar radicular symptoms, but developed Covid. As result, we did postpone the procedure. Since her visit, she has had surgery to her cervical spine by Dr. Cao. We did refer the patient to Dr. Moreira who informed the patient that she did not need surgery to her neck. She was having chronic neck pain as well as chronic headaches?daily. Dr. Ho did perform surgery and says she no longer has headaches or neck pain. She has also had a tendon release for tennis elbow and did have a meniscal tear in her knee that was repaired. Her last surgery was approximately 6 weeks ago. Patient is continuing to have low back pain with radiation into her right buttock, right hip, right leg down the right leg to the foot. She has had a right stabilization procedure as well. The patient has gotten minimal relief. She has had injective therapy?lumbar epidural steroid injections with minimal relief as well as SI injections. She has undergone physical therapy for more than 6 weeks within the last 6 months and did not get any significant relief. She continues with ice and heat therapy as well as home stretching. Patient says that anti-inflammatories have given her minimal relief. She is not diabetic and is not on any anticoagulation therapy. Patient's pain is made worse with standing and walking and prolonged standing. She has not gotten any long-term relief with conservative therapies. She does have significant pain, rating her pain up to a 7 or 8 out of 10. At this time, with sitting, her pain is a 4 out of 10. Review of Systems General: No recent weight changes, no fever, no sleep disturbances Respiratory: No cough, no shortness of air, no recurring pulmonary infections Cardiovascular/peripheral vascular: No chest pain, no palpitations, no edema, no shortness of breath Gastrointestinal: No new onset incontinence, normal bowel movements reported Genitourinary: No new onset incontinence Musculoskeletal: Low back pain with radiation into right buttock, right hip, right leg with numbness and tingling Psychiatric: [Normal mood/affect] Neurological: [Denies weakness in extremities], [denies balance issues] Objective:: Physical exam General: Alert and oriented x3, no acute distress, pleasant and cooperative Lungs: Respirations even and unlabored, symmetrical chest expansion Eyes: PERRL Musculoskeletal: Flexion and extension of lumbar [spine] somewhat guarded secondary to pain, [antalgic gait noted] Neurological: Speech clear, no gross sensory deficit Assessment:: Degenerative disc disease lumbar spine with lumbar radiculopathy symptoms Plan:: Patient is following up for scheduling of spinal cord stimulator trial. She has tried failed conservative therapies of physical therapy, oral medications, and injective therapy. She is not considered a neurosurgical candidate for lumbar spine at this time. She has had surgery cervical spine by Dr. Cao. She is 6 weeks postoperative of knee meniscal tear. The patient has had a psychological evaluation and was considered an appropriate candidate. She would like to proceed with a spinal cord stimulator trial. She is not diabetic and is not on any anticoagulation therapy. We will schedule her for the trial and plan to follow-up with her afterwards for reevaluation of symptoms. Risks and benefits of the procedure have been explained to the patient. Patient would like to proceed with the procedure. Patient has been instructed to contact the clinic with any concerns before the next appointment. Dr. Fitch has reviewed this note and agrees with this plan of care. This note was dictated using voice recogni
== END ==
PROVIDERS: Visit Provider Clinical Nurse Specialist Family Health
DX: M51.16 Intervertebral disc disorders with radiculopathy, lumbar region (principal)
CPT/HCPCS: 99212; G0463

== ENCOUNTER 2021-05-28 17:22 | Emergency (ER) | payer MEDICAID, SELFPAY ==
[2021-05-28 18:45] VITALS: BP 151/97; PULSE 79; RESP 18; TEMP 37.2; O2SAT 99; BMI 40.7
[2021-05-28 19:01] LABS: Adenovirus,PCR Not Detected (NotDetected); Bordetella Pertussis Not Detected (NotDetected); Chlamydophila Pneumoniae, PCR Not Detected (NotDetected); Coronavirus 229E Not Detected (NotDetected); Coronavirus NL63 Not Detected (NotDetected); Coronavirus OC43 Not Detected (NotDetected); Coronovirus HKU1,PCR Not Detected (NotDetected); Human Metapneumovirus Not Detected (NotDetected); Influenza A, PCR Not Detected (NotDetected); Influenza AH1, 2009 Not Detected (NotDetected); Influenza AH1, PCR Not Detected (NotDetected); Influenza AH3,PCR Not Detected (NotDetected); Influenza B, PCR Not Detected (NotDetected); Mycoplasma Pneumoniae, PCR Not Detected (NotDetected); Parainfluenza 1, PCR Not Detected (NotDetected); Parainfluenza 2, PCR Not Detected (NotDetected); Parainfluenza 3, PCR Not Detected (NotDetected); Parainfluenza 4, PCR Not Detected (NotDetected); Respiratory Syncytial Virus Not Detected (NotDetected); Rhinovirus/Enterovirus Not Detected (NotDetected)
[2021-05-28 19:02] LABS: UTC Influenza A Antigen Negative (Negative); UTC Influenza B Antigen Negative (Negative)
--- NOTE | 2021-05-28 19:02 | HMH.EDUTC ---
[facility] [place] Clinical Impression: Sinusitis Qualifiers: Sinusitis location: unspecified location Chronicity: acute Recurrence: non-recurrent Qualified Code(s): J01.90 - Acute sinusitis, unspecified Disposition: Home, Self-Care Condition on Discharge: Good Instructions: DI for Sinusitis Additional Instructions: Drink plenty of fluids. Take tylenol or ibuprofen for pain or fever. Take the medications as directed. Follow up with your regular doctor. GO TO THE ER FOR ANY WORSENING SYMPTOMS Quarantine until you know the results of your covid-19 test. Notify your school or workplace of your results and follow their instructions regarding return to work/school. Don't start the oral steroids until tomorrow, since you had the shot here today. The cough medication (promethazine dm) will make you drowsy, so don't drive or operate heavy machinery after taking it. Prescriptions: Promethazine/Dextromethorphan [Promethazine-Dm Syrup] 5 ml PO Q6HP PRN #240 ml PRN Reason: Cough Transmission Status: Pending to [facility] Ondansetron [Zofran 4mg ODT] 4 mg PO Q8HP PRN #20 tab PRN Reason: Nausea Transmission Status: Pending to [facility] Amoxicillin/Potassium Clav [Augmentin 875-125 Tablet] 1 tab PO Q12H 10 Days #20 tab Transmission Status: Pending to [facility] methylPREDNISolone [Medrol] 4 mg PO DIRECTED 6 Days #21 packet Transmission Status: Pending to [facility] Referrals: Shari Birmingham [Primary Care Provider] - Time of Disposition: 19:37 Medical Decision Making - Medical Records Medical records reviewed: No: I reviewed the patient's medical records. - Ryan Inquiry Pt receiving controlled substance: No Vital Signs: 05/28/21 18:45 Temperature 98.9 F Temperature Source Oral Pulse Rate [Left] 79 Respiratory Rate 18 Blood Pressure [Right Arm] 151/97 H Blood Pressure Mean [Right Arm] 115 02 Sat by Pulse Oximetry 99 - Lab Data Lab results reviewed: Yes: I reviewed the patient's lab results. Lab Results 05/28/21 18:47: Influenza Type A Ag Negative, Influenza Type B Ag Negative Orders (Tests/Meds): ED MEDICATIONS Discontinued Medications Generic Name Dose Route Start Last Admin Trade Name Lindsey PRN Reason Stop Dose Admin Ceftriaxone Sodium 1 gm 05/28/21 19:29 Ceftriaxone 1gm Vial IM 05/28/21 19:30 ONCE ONE Lidocaine HCl 0 ml 05/28/21 19:29 Lidocaine 1% 5ml Pf Vial IM 05/28/21 19:30 ONCE ONE Methylprednisolone Sodium Succinate 125 mg 05/28/21 19:29 Methylprednisolone Sod Succ 125mg Vial IM 05/28/21 19:30 ONCE ONE ORDERS Category Date Time Status Full Resp Panel w/COVID ([facility]) Routine Lab 05/28/21 18:48 Received [facility] [place] - General Stated complaint: covid test/treated for symptoms Time Seen by Provider: 05/28/21 19:02 Mode of Arrival: Ambulatory Source of Information: Patient Limitations: No Limitations Description of Symptoms (Recalled from Triage Doc. by RN): PT C/O A COUGH, NASAL DRAINAGE AND SINUS PRESSURE. HEENT Symptoms (Recalled from RN notes): Yes (NASAL DRAINAGE) Resp Symptoms (Recalled from RN notes): Yes (COUGH) Skin Symptoms (Recalled from RN notes): No MS Symptoms (Recalled from RN notes): No Functional Status (Recalled from RN notes): WNL - History of Present Illness Provider Complaint: She states that for the past 4 days she has had sinus congestion, sore throat, sinus drainage, and a cough. She has not been vaccinated against covid-19. - Related Data Home Medications Medication Instructions Recorded Confirmed Esomeprazole Magnesium [Nexium 20 mg PO DAILY 05/15/17 05/27/21 24Hr] Oxybutynin Chloride [Ditropan Xl] 5 mg PO DAILY 05/15/17 05/27/21 buPROPion HCL [Wellbutrin Xl] 450 mg PO DAILY 05/15/17 05/27/21 lisinopriL [Lisinopril 10mg Tab] 10 mg PO DAILY 05/15/17 05/27/21 Rosuvastatin Calcium 20 mg PO HS 07/28/18 05/27/21 Sertraline HCl [Zoloft 50mg tablet]
[2021-05-28 19:49] VITALS: BP 151/97; PULSE 79; RESP 18; TEMP 37.2
[2021-05-28 20:38] LABS: Coronavirus 19, PCR Detected (NotDetected)
== END 2021-05-28 20:03 | disposition home or self-care (01) ==
PROVIDERS: Emergency Provider Nurse Practitioner Family; PCP Nurse Practitioner Family
DX: J01.90 Acute sinusitis, unspecified (principal); U07.1 COVID-19; K21.9 Gastro-esophageal reflux disease without esophagitis; E78.5 Hyperlipidemia, unspecified; I10 Essential (primary) hypertension; Z87.891 Personal history of nicotine dependence
CPT/HCPCS: 87581; 87632; 87798; 87804; 96372; 99202; C9803; G0463; J0696; U0003; U0005

== ENCOUNTER → 2021-06-23 12:16 | Outpatient (CLI) | payer MEDICAID, SELFPAY ==
[2021-06-23 12:56] LABS: Basophils # 0.1 K/mm3 (0-0.2); Basophils % 0.9 % (0.1-2.0); Eosinophils # 0.2 K/mm3 (0.0-0.4); Eosinophils % 3.9 % (0.1-12.0); Hemoglobin 14.1 g/dL (12.2-16.2); Lymphocytes # 2.5 K/mm3 (0.7-4.5); Lymphocytes % 49.7 % (10-50); Mean Corpuscular HGB Conc 32.1 g/dL (31.8-35.4); Mean Corpuscular Hemoglobin 31.6 pg (27.0-31.2); Mean Corpuscular Volume 98.4 fl (81-99); Mean Platelet Volume 7.5 fl (7.4-10.4); Monocytes # 0.3 K/mm3 (0.1-1.0); Monocytes % 5.6 % (1.7-9.3); Neutrophils % 39.9 % (37.0-80.0); Platelet Count 270 K/mm3 (142-424); Red Blood Count 4.48 M/mm3 (4.20-5.40); White Blood Count 5.1 K/mm3 (4.8-10.8)
[2021-06-23 13:23] LABS: Blood Urea Nitrogen 15 mg/dl (7-17); Carbon Dioxide 30 mmol/L (22.0-30.0); Chloride 104 mmol/L (98-107); Estimated Glomerular Filt Rate 88 ml/min (>60); GFR (African American) 106 ML/MIN (>60); Glucose 89 mg/dl (74-100); Sodium 141 mmol/L (136-145)
== END ==
PROVIDERS: PCP Nurse Practitioner Family; Visit Provider Anesthesiology
DX: Z01.812 Encounter for preprocedural laboratory examination (principal); Z11.52 Encounter for screening for COVID-19; M51.36 Other intervertebral disc degeneration, lumbar region
CPT/HCPCS: 36415; 80048; 85025; C9803; U0003; U0005

== ENCOUNTER 2021-06-24 06:13 | Day surgery (SDC) | payer MEDICAID, SELFPAY ==
[2021-05-27 11:04] VITALS: BMI 40.7
[2021-06-22 11:18] VITALS: BMI 40.8
[2021-06-24] VITALS (7 sets, daily range): BP systolic 120–145; BP diastolic 67–88; PULSE 71–87; RESP 18; TEMP 36.7–37; O2SAT 95–100
--- NOTE | 2021-06-24 07:04 | HMH.ANESCL ---
[facility] Anesthesia Checklist - Patient Identification Patient Identification: Arm Band - Structural Data Admitted From: Home Planned Operative Procedure/s: Spinal cord trial stimulator Consent for Planned Operative Procedure(s) Verified: Yes - NPO Status Verified Time NPO: 00:00 - Additional verifications Anesthesia Reactions: Yes (nausea / vomiting) Hx Blood Transfusions: No Blood Transfusion Reaction: No - Airway Assessment C-Spine Mobility Assessed: Yes TMJ Mobility Assessed: Yes Dentition: Good Dentition - Neurological Assessment Level of Consciousness: Awake Hx Seizures: No Numbness or tingling in extremities: No - Anesthesia Plan Anesthesia Risk discussed: Yes Anesthesia Plan: Verified ASA Class: II Anesthesia Type: MAC [facility] History I have reviewed the patient's past medical history: Yes Medical History: Reports:: Depression, Gastroesophageal Reflux Disease(GERD), Hyperlipidemia, Hypertension Denies:: Cancer, Diabetes Mellitus Type 1, Diabetes Mellitus Type 2, Internal Pacemaker, MRSA, Seizures *Have you ever received a pneumonia vaccine?: No *Have you received a flu vaccine this season?: No Other Medical History: Denies: Blood Transfusion Reaction Anesthesia experience/problems:: PONV Laterality Cases: Right: Arthroscopy Knee Other Surgeries: Yes: Cholecystectomy, Tubal Ligation, Other (tendon release R/nose reset). No: Pacemaker Amputation: No Fractures: No - *Social History Last grade of school completed: Some college Smoking Status: Never smoker # Packs/Day (cigarettes): 2 #Yrs smoked (if former smoker): 5 Alcohol Intake: never Alcohol Intake Frequency:: holidays/special occasions only Substance Use Type: denies use *Occupational Status:: unemployed Housing: house Household Members: spouse *Travel in the last 8 weeks: None - Psychiatric History Pschychiatric History:: Reports:: Depression Family Hx:: Unable to obtain
--- NOTE | 2021-06-24 08:34 | P.OP_ITS ---
Date of procedure: 06/24/21 Pre-op Diagnosis:: Degenerative disc disease of lumbar spine with lumbar radiculopathy symptoms Post-op Diagnosis:: Same Procedure performed:: Spinal cord stimulator lead placement epidural x2 for spinal cord stimulator trial Surgeon:: Pal Fitch MD SOFTWARE BUSINESS ANALYST:: Enrrique Hendrix Anesthesia: MAC Estimated blood loss (mL): 1 Clinical Note:: This patient is a pleasant 50-year-old white female who we are treating for low back pain with lumbar radiculopathy symptoms. She has increasing pain in her low back radiating down into her right buttock and right leg. She has tried and failed all previous conservative therapies including injections, oral medications, physical therapy and she is not a surgical candidate for her lumbar spine. She has previously had surgery on her cervical spine and is doing well from this. She also recently had a meniscectomy. She presents today for spinal cord stimulator trial to see if this can help with her low back pain right hip pain and right leg pain. Most of her pain seems to be in the upper hip and low back area. Operative findings:: None Operative note:: Informed consent was obtained and the risk and benefits of the procedure were explained to the patient. Patient was taken the operating room placed prone on the procedure table. She was prepped and draped in sterile fashion. C-arm fluoroscopy was used to view the lumbar spine. The skin and subtenons tissues were anesthetized using lidocaine. A 17-gauge epidural needle was inserted and advanced into the L2-L3 interspace. After confirmation of needle placement in the epidural space stimulating lead was inserted and advanced very easily to the T7-T8-T9 vertebral body. A second needle was then inserted advanced again into the L2-L3 interspace. Again after confirmation of needle placement in the epidural space a second stimulating lead was inserted and advanced again very easily to the T7-T8-T9 vertebral body. One lead was at midline and one lead was right of midline. These leads were checked in AP and lateral views and found to be in proper position. The needles and stylets were removed. The leads were secured in place. The patient was taken recovery in stable condition. Patient tolerated the procedure well with no complications. Patient was programmed by the [employer] food products sales representative with good stimulation in all areas of pain. She was then placed on a paresthesia free fast program Patient was discharged home neurologically intact with good relief of pain symptoms. Plan and disposition: We will follow-up with this patient in 1 week for lead pull. We will continually follow-up with her every day and make adjustments as needed. We will send her home on Bactrim DS twice a day for 5 days for postop antibiotics. If she has any problems questions she is to call us back in the pain clinic. Condition: stable Disposition: PACU Complications:: None
== END 2021-06-24 10:32 | disposition home or self-care (01) ==
LOC: OR 06:15
PROVIDERS: PCP Nurse Practitioner Family; Visit Provider Anesthesiology
PROC: (CPT 63650; principal; 2021-06-24 07:30)
DX: M51.16 Intervertebral disc disorders with radiculopathy, lumbar region (principal); F32.A Depression, unspecified; K21.9 Gastro-esophageal reflux disease without esophagitis; E78.5 Hyperlipidemia, unspecified; I10 Essential (primary) hypertension; Z79.899 Other long term (current) drug therapy
CPT/HCPCS: 63650 ×2; 96374; C1778; J2405; J3370

== ENCOUNTER → 2021-07-02 12:27 | Outpatient (POV) | payer MEDICAID, SELFPAY ==
--- NOTE | 2021-07-02 12:51 | P.CONS_ITS ---
[facility] Pain Management SOAP Note Subjective:: Patient is a pleasant 50-year-old white female who presents today after undergoing spinal cord stimulator trial lead on June 24, 2021 with the [employer] system. She notes 70% pain relief with the trial and is very eager to proceed with permanent implant. She denies any complications with the trial. She rates her pain as a 3 out of 10. Objective:: General: Alert and oriented x3, no acute distress, pleasant and cooperative Lungs: Resps E/U, symmetric chest expansion Eyes: PERRL Musculoskeletal: limited flexion and extension of the lumbar spine secondary to pain. Deep tendon reflexes were normal in bilateral lower extremities. Motor exam was grossly intact in the bilateral lower extremities, antalgic gait noted. Neurological: Speech is clear, academic affairs vice president equal, no gross sensory deficits Assessment:: Degenerative disc disease of lumbar spine and lumbar radiculopathy Plan:: I discussed with the patient that we will schedule her for permanent spinal cord stimulator implantation with a [employer] system next 2 to 3 weeks. [facility] #[id number] was appropriate. [facility] History Medical History: Reports:: Depression, Gastroesophageal Reflux Disease(GERD), Hyperlipidemia, Hypertension Denies:: Cancer, Diabetes Mellitus Type 1, Diabetes Mellitus Type 2, Internal Pacemaker, MRSA, Seizures *Have you ever received a pneumonia vaccine?: No *Have you received a flu vaccine this season?: No Other Medical History: Denies: Blood Transfusion Reaction Laterality Cases: Right: Arthroscopy Knee Other Surgeries: Yes: Cholecystectomy, Tubal Ligation, Other (tendon release R/nose reset). No: Pacemaker Amputation: No Fractures: No - *Social History Smoking Status: Never smoker # Packs/Day (cigarettes): 2 #Yrs smoked (if former smoker): 5 Alcohol Intake: never Alcohol Intake Frequency:: holidays/special occasions only Substance Use Type: denies use *Occupational Status:: unemployed Housing: house Household Members: spouse *Travel in the last 8 weeks: None - Psychiatric History Pschychiatric History:: Reports:: Depression Family Hx:: Unable to obtain
[2021-07-02 13:22] VITALS: BP 155/81; PULSE 85; RESP 18; O2SAT 98; BMI 39.1
== END ==
PROVIDERS: Visit Provider Anesthesiology Pain Medicine
DX: M51.16 Intervertebral disc disorders with radiculopathy, lumbar region (principal)
CPT/HCPCS: 99212; G0463

== ENCOUNTER → 2021-08-01 11:41 | Outpatient (CLI) | payer MEDICAID, SELFPAY ==
[2021-08-01 12:33] LABS: Basophils # 0.1 K/mm3 (0-0.2); Basophils % 1.2 % (0.1-2.0); Eosinophils # 0.2 K/mm3 (0.0-0.4); Eosinophils % 3.4 % (0.1-12.0); Hematocrit 45.9 % (37.0-47.0); Hemoglobin 14.3 g/dL (12.2-16.2); Lymphocytes # 2.3 K/mm3 (0.7-4.5); Lymphocytes % 45.5 % (10-50); Mean Corpuscular HGB Conc 31.2 g/dL (31.8-35.4); Mean Corpuscular Hemoglobin 32.1 pg (27.0-31.2); Mean Corpuscular Volume 102.9 fl (81-99); Mean Platelet Volume 8.3 fl (7.4-10.4); Monocytes # 0.3 K/mm3 (0.1-1.0); Monocytes % 6.8 % (1.7-9.3); Neutrophils # 2.2 K/mm3 (1.8-7.8); Neutrophils % 43.1 % (37.0-80.0); Platelet Count 308 K/mm3 (142-424); Red Blood Count 4.46 M/mm3 (4.20-5.40); Red Cell Distribution Width 13.4 % (11.5-17.5)
[2021-08-01 13:39] LABS: Chloride 106 mmol/L (98-107); Potassium 4.9 mmoL/L (3.5-5.1); Sodium 141 mmol/L (136-145)
[2021-08-01 13:42] LABS: Anion Gap 11.9 mEq/L (5-15); Blood Urea Nitrogen 17 mg/dl (7-17); Carbon Dioxide 28 mmol/L (22.0-30.0); Estimated Glomerular Filt Rate 66 ml/min (>60); GFR (African American) 80 ML/MIN (>60)
[2021-08-01 13:43] LABS: Calcium 8.7 mg/dl (8.4-10.2); Glucose 88 mg/dl (74-100)
== END ==
PROVIDERS: Visit Provider Anesthesiology
DX: Z01.812 Encounter for preprocedural laboratory examination (principal); Z11.52 Encounter for screening for COVID-19; M51.36 Other intervertebral disc degeneration, lumbar region
CPT/HCPCS: 36415; 80048; 85025; C9803; U0003; U0005

== ENCOUNTER 2021-08-04 08:39 | Day surgery (SDC) | payer MEDICAID, SELFPAY ==
[2021-07-30 11:31] VITALS: BMI 39.9
[2021-08-04] VITALS (7 sets, daily range): BP systolic 114–138; BP diastolic 74–97; PULSE 64–74; RESP 16–18; TEMP 36.5–36.7; O2SAT 96–100
[2021-08-04 09:11] LABS: Urine Pregnancy, HCG Qual. Negative (Negative)
--- NOTE | 2021-08-04 11:08 | HMH.ANESCL ---
[facility] Anesthesia Checklist - Structural Data Admitted From: Home Planned Operative Procedure/s: nerve stim implant Consent for Planned Operative Procedure(s) Verified: Yes - Additional verifications Anesthesia Reactions: Yes (nausea / vomiting) Hx Blood Transfusions: No Blood Transfusion Reaction: No - Airway Assessment C-Spine Mobility Assessed: Yes TMJ Mobility Assessed: Yes Dentition: Good Dentition - Neurological Assessment Level of Consciousness: Awake, Alert, Appropriate - Anesthesia Plan Anesthesia Risk discussed: Yes Anesthesia Plan: Verified ASA Class: III Anesthesia Type: MAC [facility] History I have reviewed the patient's past medical history: Yes Medical History: Reports:: Depression, Gastroesophageal Reflux Disease(GERD), Hyperlipidemia, Hypertension Denies:: Cancer, Diabetes Mellitus Type 1, Diabetes Mellitus Type 2, Internal Pacemaker, MRSA, Seizures *Have you ever received a pneumonia vaccine?: No *Have you received a flu vaccine this season?: No Other Medical History: Denies: Blood Transfusion Reaction Anesthesia experience/problems:: none Laterality Cases: Right: Arthroscopy Knee Other Surgeries: Yes: Cholecystectomy, Tubal Ligation, Other (tendon release R/nose reset). No: Pacemaker Amputation: No Fractures: No - *Social History Last grade of school completed: Some college Smoking Status: Never smoker # Packs/Day (cigarettes): 2 #Yrs smoked (if former smoker): 5 Alcohol Intake: never Alcohol Intake Frequency:: holidays/special occasions only Substance Use Type: denies use *Occupational Status:: unemployed Housing: house Household Members: spouse *Travel in the last 8 weeks: None - Psychiatric History Pschychiatric History:: Reports:: Depression Family Hx:: Unable to obtain
--- NOTE | 2021-08-04 15:30 | HMH.OPNOTE ---
Date of procedure: 08/04/21 Pre-op Diagnosis:: Degenerative disc disease of lumbar spine with lumbar radiculopathy symptoms Post-op Diagnosis:: Same Procedure performed:: Perm placement spinal cord stimulator leads epidural x2 and generator placement Surgeon:: Pal Fitch MD VEGETABLE SCULLION:: Raheem Haro Anesthesia: MAC Estimated blood loss (mL): 5 Clinical Note:: This patient is a pleasant 50-year-old white female who we are treating for low back pain with lumbar radiculopathy symptoms. She has failed all previous conservative therapy including injections, oral medications, physical therapy and she is not a surgical candidate. She has had a successful spinal cord stimulator trial with 80 to 90% relief in pain symptoms. She has also had a successful psychological evaluation. She presents for permanent placement of her spinal cord stimulator today. Operative findings:: None Operative note:: Informed consent was obtained risk and benefits of the procedure were explained to the patient. Patient was taken the operating room placed prone on the procedure table. She was prepped and draped in sterile fashion. C-arm fluoroscopy was used to view the lumbar spine adjacent to the L2-L3 and L3-L4 interspace. I anesthetized the skin and subcutaneous tissues and made an incision and dissected down to the lumbar paraspinous fascia. A 17-gauge epidural needle was inserted and advanced into the L1-2 interspace. After confirmation of needle placement in the epidural space stimulating lead was inserted and advanced very easily to the T8-T9 vertebral bodies. A second needle was inserted and advanced again into the L1-L2 interspace. Again after confirmation of needle placement in the epidural space a stimulating lead was inserted and advanced again very easily to the T8-T9 vertebral body. Leads were checked in AP and lateral view. The leads were secured to the fascia with 2 anchor devices and 2-0 Prolene. I prepared the battery/generator pocket on the right side of the back. We tunneled the leads from the back to the generator pocket. I attached the leads to the generator. Impedances were checked and found to be okay. Both incisions were then irrigated with antibiotic solution. Both incisions were then closed with 2-0 Vicryl followed by 4-0 nylon and baylee. A wound VAC was placed over both incisions. The patient was placed in an abdominal binder taken recovery in stable condition. The patient tolerated procedure well with no complications. She was programmed by the [employer] outside sales representative insurance with good stimulation in all areas of pain. Patient was discharged home neurologically intact and with good relief of pain symptoms. Plan and disposition: We will follow-up with this patient in 1 week for reprogramming and wound check. We will follow-up in 2 weeks for suture and staple removal and reprogram again if needed. If she has any problems or questions she is to call us back in the pain clinic. Condition: stable Disposition: PACU Complications:: None
== END 2021-08-04 14:10 | disposition home or self-care (01) ==
LOC: OR 08:39
PROVIDERS: PCP Nurse Practitioner Family; Visit Provider Anesthesiology
PROC: (CPT 63685; principal; 2021-08-04 10:30)
DX: M51.16 Intervertebral disc disorders with radiculopathy, lumbar region (principal); F32.A Depression, unspecified; K21.9 Gastro-esophageal reflux disease without esophagitis; E78.5 Hyperlipidemia, unspecified; I10 Essential (primary) hypertension; Z90.49 Acquired absence of other specified parts of digestive tract; Z88.6 Allergy status to analgesic agent; Z79.899 Other long term (current) drug therapy
CPT/HCPCS: 63685; 63650; 81025; 96374; C1778; C1820; J2704

== ENCOUNTER → 2021-08-10 14:16 | Outpatient (POV) | payer MEDICAID, SELFPAY ==
[2021-08-10 14:38] VITALS: BP 128/77; PULSE 82; RESP 18; TEMP 36.8; O2SAT 97; BMI 39.9
--- NOTE | 2021-08-10 15:03 | HMH.PAINSOAP ---
[facility] Pain Management SOAP Note Subjective:: Patient is a pleasant 50-year-old female who presents today for a 1 week follow-up after a [employer] spinal cord stimulator permanent placement on August 04, 2021. Patient is currently being treated for degenerative disc disease of the lumbar spine with lumbar radiculopathy symptoms. After the procedure, patient states that she has been having significant relief about 80-90%. She has no issues with the stimulator. [employer] sales representative is here today to help with some programming and medication. She rates her pain today as 3 out of 10. Review of Systems: General: No recent weight changes, no fever, no sleep disturbances Respiratory: No cough, no shortness of air, no recurring pulmonary infections Cardiovascular/peripheral vascular: No chest pain, no palpitations, no edema, no shortness of breath Gastrointestinal: No new onset incontinence, normal bowel movements reported Genitourinary: No new onset incontinence Musculoskeletal: Low back pain Psychiatric: [Normal mood/affect] Neurological: [Denies weakness in extremities], [denies balance issues] Objective:: Physical Exam: General: Alert and oriented x3, no acute distress, pleasant and cooperative, [on room air] Lungs: Respirations even and unlabored, symmetrical chest expansion Eyes: PERRL Musculoskeletal: Flexion and extension of lumbar [spine] somewhat guarded secondary to pain, [antalgic gait noted] Skin: Surgical incisions are healing well and well approximated. There is no drainage, erythema, and swelling. Neurological: Speech clear, no gross sensory deficit Assessment:: Degenerative disc disease of lumbar spine with lumbar radiculopathy symptoms Plan:: Patient continues to have significant relief after the permanent placement of her [employer] spinal cord stimulator on August 04, 2021. Surgical incisions are healing well and well approximated. There is no drainage, erythema, and swelling. [employer] with [employer] was here to help with some reprogramming and indication. The metals sales representative says that she was able to get good coverage on the patient. Patient has been instructed to contact the clinic with any concerns before the next appointment. Dr. Fitch has reviewed this note and agrees with this plan of care. This note was dictated using voice recognition software and make contain errors or omissions. Patient Instruction: Patient is to continue wearing the abdominal binder for a minimum of 6 weeks. Patient is still limited to their activity. No squatting, no twisting, and no lifting anything heavier than a gallon of milk. Patient can take a shower, but no baths. Patient can use soap and water to clean the surgical incisions. [facility] History Medical History: Reports:: Depression, Gastroesophageal Reflux Disease(GERD), Hyperlipidemia, Hypertension Denies:: Cancer, Diabetes Mellitus Type 1, Diabetes Mellitus Type 2, Internal Pacemaker, MRSA, Seizures *Have you ever received a pneumonia vaccine?: No *Have you received a flu vaccine this season?: No Other Medical History: Denies: Blood Transfusion Reaction Laterality Cases: Right: Arthroscopy Knee Other Surgeries: Yes: Cholecystectomy, Tubal Ligation, Other (tendon release R/nose reset). No: Pacemaker Amputation: No Fractures: No - *Social History Smoking Status: Never smoker # Packs/Day (cigarettes): 2 #Yrs smoked (if former smoker): 5 Alcohol Intake: never Alcohol Intake Frequency:: holidays/special occasions only Substance Use Type: denies use *Occupational Status:: unemployed Housing: house Household Members: spouse *Travel in the last 8 weeks: None - Psychiatric History Pschychiatric History:: Reports:: Depression Family Hx:: Unable to obtain
== END ==
PROVIDERS: Visit Provider Student in an Organized Health Care Education/Training Program
DX: M51.16 Intervertebral disc disorders with radiculopathy, lumbar region (principal)
CPT/HCPCS: 99212; G0463

== ENCOUNTER → 2021-08-24 11:30 | Outpatient (POV) | payer MEDICAID, SELFPAY ==
[2021-08-24 11:49] VITALS: BP 145/87; PULSE 72; RESP 18; TEMP 36.6; O2SAT 100; BMI 39.9
--- NOTE | 2021-08-24 11:54 | HMH.PAINSOAP ---
[facility] Pain Management SOAP Note Subjective:: Patient is a pleasant 51-year-old female who presents today for a 3-week follow-up after a permanent placement of a [employer] spinal cord stimulator on August 04, 2021. Patient is currently being treated for degenerative disc disease of lumbar spine with lumbar radiculopathy symptoms. After 3 weeks, patient continues to have 80 to 90% relief. Denies any issues with the stimulator. We plan to remove her baylee today. Patient continues to wear her abdominal binder. Denies any fever or increasing pain. Rates pain today as 3 out of 10. Review of Systems: General: No recent weight changes, no fever, no sleep disturbances Respiratory: No cough, no shortness of air, no recurring pulmonary infections Cardiovascular/peripheral vascular: No chest pain, no palpitations, no edema, no shortness of breath Gastrointestinal: No new onset incontinence, normal bowel movements reported Genitourinary: No new onset incontinence Musculoskeletal: Improving low back pain Psychiatric: [Normal mood/affect] Neurological: [Denies weakness in extremities], [denies balance issues] Objective:: Physical Exam: General: Alert and oriented x3, no acute distress, pleasant and cooperative, [on room air] Lungs: Respirations even and unlabored, symmetrical chest expansion Eyes: PERRL Musculoskeletal: Flexion and extension of lumbar [spine] somewhat guarded secondary to pain, [antalgic gait noted] Skin: Surgical incisions are healing well and well approximated. There is no drainage and swelling. Some redness around the incision sites could be related from the baylee. Neurological: Speech clear, no gross sensory deficit Assessment:: Degenerative disc disease of the lumbar spine with lumbar radiculopathy symptoms Plan:: Patient continues to have relief with the [employer] spinal cord stimulator. We take out her sutures and baylee today. Surgical incisions are healing well and well approximated. There is no drainage and swelling. Patient does have some redness around the incision site. This might just be because of the baylee. We will follow with this patient in 2 weeks to evaluate her incisions. I discussed with the patient that if she has any worsening pain, she can contact one of the [employer] representatives. They can meet with her in our clinic for reprogramming. Patient has been instructed to contact the clinic with any concerns before the next appointment. Dr. Fitch has reviewed this note and agrees with this plan of care. This note was dictated using voice recognition software and make contain errors or omissions. [facility] History Medical History: Reports:: Depression, Gastroesophageal Reflux Disease(GERD), Hyperlipidemia, Hypertension Denies:: Cancer, Diabetes Mellitus Type 1, Diabetes Mellitus Type 2, Internal Pacemaker, MRSA, Seizures *Have you ever received a pneumonia vaccine?: No *Have you received a flu vaccine this season?: No Other Medical History: Denies: Blood Transfusion Reaction Laterality Cases: Right: Arthroscopy Knee Other Surgeries: Yes: Cholecystectomy, Tubal Ligation, Other (tendon release R/nose reset). No: Pacemaker Amputation: No Fractures: No - *Social History Smoking Status: Never smoker # Packs/Day (cigarettes): 2 #Yrs smoked (if former smoker): 5 Alcohol Intake: never Alcohol Intake Frequency:: holidays/special occasions only Substance Use Type: denies use *Occupational Status:: unemployed Housing: house Household Members: spouse *Travel in the last 8 weeks: Inside the [place] - Psychiatric History Pschychiatric History:: Reports:: Depression Family Hx:: Unable to obtain
== END ==
PROVIDERS: Visit Provider Student in an Organized Health Care Education/Training Program
DX: M51.16 Intervertebral disc disorders with radiculopathy, lumbar region (principal)
CPT/HCPCS: 99213; G0463

== ENCOUNTER → 2021-09-07 10:39 | Outpatient (POV) | payer MEDICAID, SELFPAY ==
--- NOTE | 2021-09-07 12:00 | HMH.PAINSOAP ---
[facility] Pain Management SOAP Note Subjective:: Patient is a very pleasant 51-year-old female who presents today for follow-up visit after receiving spinal cord stimulator implant. Patient is doing very well. Patient reports minimal pain if any in the lumbar back pain as well as bilateral hip and leg radicular symptoms. Patient denies any issues with the stimulator at this time. Patient's wound is healed. Objective:: Patient is awake alert oriented x3. In no acute distress. Flexion-extension lumbar spine. Deep tendon reflexes normal. Motor strength upper and lower extremities normal. There is no gross sensory deficit. Gait is normal. Assessment:: Degenerative disc disease lumbar spine multilevels. Lumbar radicular symptoms. Plan:: Patient will return to see us on an as-needed basis. [facility] History Medical History: Reports:: Depression, Gastroesophageal Reflux Disease(GERD), Hyperlipidemia, Hypertension Denies:: Cancer, Diabetes Mellitus Type 1, Diabetes Mellitus Type 2, Internal Pacemaker, MRSA, Seizures *Have you ever received a pneumonia vaccine?: No *Have you received a flu vaccine this season?: No Other Medical History: Denies: Blood Transfusion Reaction Laterality Cases: Right: Arthroscopy Knee Other Surgeries: Yes: Cholecystectomy, Tubal Ligation, Other (tendon release R/nose reset). No: Pacemaker Amputation: No Fractures: No - *Social History Smoking Status: Never smoker # Packs/Day (cigarettes): 2 #Yrs smoked (if former smoker): 5 Alcohol Intake: never Alcohol Intake Frequency:: holidays/special occasions only Substance Use Type: denies use *Occupational Status:: unemployed Housing: house Household Members: spouse *Travel in the last 8 weeks: Inside the [place] - Psychiatric History Pschychiatric History:: Reports:: Depression Family Hx:: Unable to obtain
[2021-09-07 12:15] VITALS: BP 149/85; PULSE 72; RESP 18; TEMP 36.8; O2SAT 98; BMI 39.1
== END ==
PROVIDERS: Visit Provider Nurse Anesthetist, Certified Registered
DX: M51.16 Intervertebral disc disorders with radiculopathy, lumbar region (principal)
CPT/HCPCS: 99212; G0463

== ENCOUNTER → 2021-12-04 10:55 | Outpatient (CLI) | payer MEDICAID, SELFPAY ==
--- NOTE | 2021-12-04 10:58 | MM_ITS ---
PROCEDURE INFORMATION: Exam: MG Bilateral Screening 3D Mammography Exam date and time: 12/04/2021 10:50 AM Age: 51 years old Clinical indication: Screening examination TECHNIQUE: Imaging protocol: Bilateral Screening tomosynthesis and 2D mammography including computer-aided detection (CAD) when performed. COMPARISON: 1. MG MM DIG SCREENING MAMM BI W/CAD 05/13/2020 8:36 AM 2. MG MM DIG MAMM DX UNILAT RT CAD 02/26/2019 2:02 PM FINDINGS: MAMMOGRAPHY: Breast composition: The breasts are almost entirely fatty. Mass: None. Architectural distortion: None. Calcifications: No suspicious calcifications. Asymmetric density: None. Skin thickening: None. Axillary adenopathy: None. IMPRESSION: No mammographic evidence of malignancy. Annual screening is recommended unless otherwise clinically indicated. ASSESSMENT: BI-RADS Category 1: Negative
== END ==
PROVIDERS: PCP Nurse Practitioner Family; Visit Provider Nurse Practitioner Family
DX: Z12.31 Encounter for screening mammogram for malignant neoplasm of breast (principal)
CPT/HCPCS: 77063; 77067

== ENCOUNTER → 2022-06-03 09:48 | Outpatient (POV) | payer MEDICAID, SELFPAY ==
--- NOTE | 2022-06-03 10:18 | EXP.PAIN.SOA ---
[facility] Pain Management SOAP Note Subjective:: Patient is a pleasant 51-year-old who presents today for follow-up. We are currently treating the patient for degenerative disc disease of lumbar spine with lumbar radiculopathy symptoms, sacroiliitis, status post SI stabilization procedure. Today she rates her pain a 3 out of 10. Patient states she is experiencing worsening pain along her low back that radiates into her left hip and left groin. Patient states this has been going on for the last month and has progressively worsened. Patient does describe this as a aching sensation with occasional sharp shooting pains with certain positioning such as getting up from a sitted position. Patient states in the past we have treated her for very similar pain however it was all along her right side. Patient does have a history of right SI stabilization procedure approximately 2+ years ago. Patient also has a [employer] spinal cord stimulator in place. Patient denies any problems with this device however she states she has altered the programming and increased it and it has been quite a while since she has been reprogrammed by the representatives. Patient states from her last visit with us back in August she has had elbow surgery, right knee surgery and carpal tunnel release. Patient states that she does also experience left knee pain and has been told that she will need a left knee replacement in the future. Patient does state her pain is worse with increased activity and often cannot tolerate prolonged sitting, standing, walking. Patient does state it affects her ability to perform activities of daily living such as cooking and cleaning. Patient recently was put on Fosters 5 mg following her last operating room procedure however this was only a 4-day dose. Patient is not currently taking any scheduled medications. Her Ryan is [phone]. Its been reviewed and appropriate. Review of Systems: General: No recent weight changes, no fever, no sleep disturbances Respiratory: No cough, no shortness of air, no recurring pulmonary infections Cardiovascular/peripheral vascular: No chest pain, no palpitations, no edema, no shortness of breath Gastrointestinal: No new onset incontinence, normal bowel movements reported Genitourinary: No new onset incontinence Musculoskeletal: Low back pain, left hip pain, left groin pain Psychiatric: [Normal mood/affect] Neurological: [Denies weakness in extremities], [denies balance issues] Objective:: Physical Exam: General: Alert and oriented x3, no acute distress, pleasant and cooperative Lungs: Respirations even and unlabored, symmetrical chest expansion Eyes: PERRL Musculoskeletal: Flexion and extension of lumbar [spine] somewhat guarded secondary to pain, [antalgic gait noted] extreme point tenderness along her left SI and left bursa along with positive left Kirstin's, Ez's, Gaenslen's, compression and distraction exam Neurological: Speech clear, no gross sensory deficit ORT score updated with low risk History of OCD and depression Assessment:: Degenerative disc disease of lumbar spine with lumbar radiculopathy symptoms, sacroiliitis, status post SI stabilization procedure Plan:: Patient is experiencing significant pain in her low back along the left side and radiating into her left hip and left groin. Patient did have limited range of motion and extreme point tenderness at her left SI and left greater trochanteric bursa along with a positive left Kirstin's, Ez's, Gaenslen's, compression and distraction exam. I have discussed with the patient that she may benefit from a diagnostic left SI and left bursa injection. Risk and benefits were discussed with the patient. She would like to proceed forward with this plan of care. I will also order the patient a compounding cream and contact [employer] to get her scheduled for a spinal cord stimulator reprogramming. We will schedule the patient for a diagnostic left SI and lef
[2022-06-03 10:33] VITALS: BP 129/81; PULSE 75; RESP 18; O2SAT 98; BMI 38.3
== END ==
PROVIDERS: PCP Nurse Practitioner Family; Visit Provider Nurse Practitioner Family
DX: M51.16 Intervertebral disc disorders with radiculopathy, lumbar region (principal); M46.1 Sacroiliitis, not elsewhere classified
CPT/HCPCS: 99212; G0463

== ENCOUNTER → 2022-06-25 10:27 | Outpatient (POV) | payer MEDICAID, SELFPAY ==
[2022-06-25 11:31] VITALS: BP 139/89; PULSE 78; RESP 18; O2SAT 97; BMI 38.3
--- NOTE | 2022-06-25 12:23 | A.OFFVIS_ITS ---
[facility] Pain Management SOAP Note Subjective:: This patient is a very pleasant 51-year-old female that comes our clinic today for follow-up visit regarding her left low lumbar back pain. She describes this pain as constant, dull, sharp and stabbing. Patient rates the pain 8/10. Upon examination patient has extreme point tenderness over the left sacroiliac joint. Patient has difficulty transitioning from sitting to standing. Difficulty ambulating for distance secondary to increased sharp and stabbing pain over the left low lumbar area as well as left posterior hip. Patient has positive Kirstin's test on the left. Positive Gaenslen's test on the left. Positive left sacroiliac joint compression test. Patient has been to physical therapy within the last 6 months with minimal relief. In fact, patient reports physical therapy increased her pain significantly for some time. She takes acetaminophen with mild relief. She has continued to do home exercise program with stretching November through May since physical therapy. She is having difficulty with active daily living such as sweeping, vacuuming, sitting on commode. Patient status post right SI joint fusion 2020 with significant improvement in her overall symptoms on the right posterior hip area. Patient's spinal cord stimulator has been very effective in regards to bilateral leg radicular symptoms. Objective:: Patient is awake alert [place] x3. In no acute distress. Flexion-extension lumbar spine very guarded secondary to pain. Deep tendon reflexes upper lower extremities normal. Motor strength upper and lower extremities normal. There is no gross sensory deficit. Gait is normal Assessment:: Degenerative disc disease lumbar spine multilevels. Lumbar radiculopathy. Bilateral sacroiliitis. Plan:: We will plan for left sacroiliac joint injection of cortisone. [facility] Disclaimer: The information contained in this section may have been updated after the patient was seen, as this information can be updated by other users. 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
== END ==
PROVIDERS: PCP Nurse Practitioner Family; Visit Provider Nurse Anesthetist, Certified Registered
DX: M51.16 Intervertebral disc disorders with radiculopathy, lumbar region (principal); M46.1 Sacroiliitis, not elsewhere classified
CPT/HCPCS: 99212; G0463

== ENCOUNTER 2022-07-13 09:10 | Day surgery (SDC) | payer MEDICARE, MEDICAID, SELFPAY ==
[2022-07-13 09:36] VITALS: BP 141/81; PULSE 86; RESP 18; TEMP 36.5; O2SAT 100; BMI 38.3
[2022-07-13 09:51] VITALS: BP 133/85; PULSE 81; RESP 18; O2SAT 97
[2022-07-13 09:52] VITALS: BP 133/85; PULSE 81; RESP 18; O2SAT 97
--- NOTE | 2022-07-13 09:57 | EXP.PAIN.PRO ---
Procedure Date: 07/13/22 Time: 09:50 Anesthesiologist:: Govind Gonzales CRNA Complications:: None Pre-procedure Diagnosis:: Left sacroiliitis Post-procedure Diagnosis:: Same Indications for Procedure:: Patient is a pleasant 51-year-old female who comes our clinic today for left sacroiliac joint injection. She has extreme point tenderness over the left sacroiliac joint area. She rates her pain 8/10. Patient describes the left low lumbar and left posterior hip pain as constant, dull, sharp and stabbing at times. Patient has difficulty standing and/or sitting for any length of time. Procedure Details:: Procedure: Left sacroiliac injection under fluoroscopy Informed consent was obtained and the risk and benefits of the procedure were explained to the patient.~ The patient was taken to the procedure room and noninvasive monitors were placed including noninvasive blood pressure cuff and pulse oximeter.~ The patient was placed prone on the procedure table.~ The~ left hip was cleansed using Betadine as a cleansing solution.~ C-arm fluorosocpy was used to view the left SI joint.~ The skin and subcutaneous tissues were anesthetized using Lidocaine 1.5% and a 25-gauge needle.~ After this, a 22-gauge spinal needle was inserted under fluoroscopic guidance into the inferior aspect of the left SI joint.~ Omnipaque dye was injected and a good spread was seen throughout the joint.~ After this, approximately 5 mL of bupivacaine 0.25% and Depo-Medrol 40 mg was incrementally injected into the sacroiliac joint.~ The patient tolerated the procedure well with no complications.~ The patient was observed in the Pain Clinic for a period of 30-45 minutes, then discharged home neurologically intact.~ Plan and Disposition:: Patient was discharged without incident
[2022-07-13 10:02] VITALS: BP 128/74; PULSE 78; RESP 18; O2SAT 100
== END 2022-07-13 10:02 | disposition home or self-care (01) ==
PROVIDERS: PCP Nurse Practitioner Family; Visit Provider Nurse Anesthetist, Certified Registered
DX: M46.1 Sacroiliitis, not elsewhere classified (principal)
CPT/HCPCS: 27096; G0260; J1040

== ENCOUNTER → 2022-11-01 11:08 | Outpatient (POV) | payer MEDICARE, SELFPAY ==
--- NOTE | 2022-11-01 11:34 | EXP.PAIN.SOA ---
[facility] Pain Management SOAP Note Subjective:: Patient is a pleasant 52-year-old who presents today for follow-up.? We are currently treating the patient for degenerative disc disease of lumbar spine with lumbar radiculopathy symptoms, sacroiliitis, status post SI stabilization procedure.? Today she rates her pain a 3 out of 10.? At our last visit she had had a left SI injection that she does state provided 75 to 80% improvement or more lasting at least 1 month. Patient states she was able to increase her activity with decreased pain symptoms and felt more functional during this timeframe. Today she states that she is continuing to have low back pain along the left side and describes it as an aching, dull sensation that is constant with occasional sharp shooting pains. It does interfere with her ability perform activities of daily living such as cooking and cleaning. She has had a right SI stabilization procedure approximately 2 years ago and states it still continues to do well. She also has a [employer] spinal cord stimulator in place.? She does present today requesting if we can schedule her for a reprogramming of her spinal cord stimulator. Her Ryan is [phone] its been reviewed and appropriate. Review of Systems: General: No recent weight changes, no fever, no sleep disturbances Respiratory: No cough, no shortness of air, no recurring pulmonary infections Cardiovascular/peripheral vascular: No chest pain, no palpitations,? no edema, no shortness of breath Gastrointestinal: No new onset incontinence, normal bowel movements reported Genitourinary: No new onset incontinence Musculoskeletal: Low back pain, left hip pain, left groin pain Psychiatric: [Normal mood/affect] Neurological: [Denies weakness in extremities], [denies balance issues] Objective:: Physical Exam: General: Alert and oriented x3, no acute distress, pleasant and cooperative Lungs: Respirations even and unlabored, symmetrical chest expansion Eyes: PERRL Musculoskeletal: Flexion and extension of lumbar [spine] somewhat guarded secondary to pain, [antalgic gait noted] point tenderness along left SI with positive left Kirstin's, Ez's, Gaenslen's, compression and distraction exam Neurological: Speech clear, no gross sensory deficit Assessment:: Degenerative disc disease of lumbar spine with lumbar radiculopathy symptoms, sacroiliitis, status post right SI stabilization procedure Plan:: Patient is experiencing worsening pain along the left side of her low back with radiating symptoms into her hip. I have discussed with the patient that in the future it may be beneficial to repeat her left SI injection as she did get approximately 75 to 80% relief lasting over 1 month. We will discuss this at future visits. I will contact [employer]'s representative to get her spinal cord stimulator reprogram. Patient will return to clinic in 2 weeks for reevaluation of symptoms and spinal cord stimulator reprogramming. Patient has been instructed to contact the clinic with any concerns before the next appointment. Dr. Fitch has reviewed this note and agrees with this plan of care. This note was dictated using voice recognition software and make contain errors or omissions. [facility] Disclaimer: The information contained in this section may have been updated after the patient was seen, as this information can be updated by other users. 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
[2022-11-01 12:10] VITALS: BP 129/77; PULSE 83; RESP 18; O2SAT 97; BMI 37.5
== END ==
LOC: SC.PAIN 11:09
PROVIDERS: PCP Nurse Practitioner Family; Visit Provider Nurse Practitioner Family
DX: M51.16 Intervertebral disc disorders with radiculopathy, lumbar region (principal); M46.1 Sacroiliitis, not elsewhere classified
CPT/HCPCS: 99212; G0463

== ENCOUNTER → 2022-12-09 10:12 | Outpatient (CLI) | payer MEDICARE, SELFPAY ==
--- NOTE | 2022-12-09 10:26 | MM_ITS ---
PROCEDURE INFORMATION: Exam: MG Bilateral Screening 3D Mammography Exam date and time: 12/09/2022 10:16 AM Age: 52 years old Clinical indication: Screening examination TECHNIQUE: Imaging protocol: Bilateral Screening tomosynthesis and 2D mammography including computer-aided detection (CAD) when performed. COMPARISON: 1. MG MM DIG SCREENING MAMM BI W/CAD 12/04/2021 10:50 AM 2. MG MM DIG SCREENING MAMM BI W/CAD 05/13/2020 8:36 AM FINDINGS: MAMMOGRAPHY: Breast composition: The breasts are almost entirely fatty. Mass: None. Architectural distortion: None. Calcifications: No suspicious calcifications. Asymmetric density: None. Skin thickening: None. Axillary adenopathy: None. IMPRESSION: No mammographic evidence of malignancy. Annual screening is recommended unless otherwise clinically indicated. ASSESSMENT: BI-RADS Category 1: Negative
== END ==
PROVIDERS: PCP Nurse Practitioner Family; Visit Provider Nurse Practitioner Family
DX: Z12.31 Encounter for screening mammogram for malignant neoplasm of breast (principal)
CPT/HCPCS: 77063; 77067

== ENCOUNTER 2022-12-20 19:16 | Emergency (ER) | payer MEDICARE, SELFPAY ==
[2022-12-20] VITALS (8 sets, daily range): BP systolic 104–130; BP diastolic 52–74; PULSE 79–99; RESP 14–18; TEMP 36.5–36.9; O2SAT 93–99; BMI 38.3
--- NOTE | 2022-12-20 20:42 | PC.NURSE ---
Rounded on pt. No needs voiced at this time.
--- NOTE | 2022-12-20 21:00 | XR_ITS ---
PROCEDURE INFORMATION: Exam: XR Right Knee Exam date and time: 12/20/2022 9:29 PM Age: 52 years old Clinical indication: Injury or trauma; Blunt trauma; Knee; Right; Patient HX: Fall this morning; Additional info: Pain after fall, poss lig injury vs osseous TECHNIQUE: Imaging protocol: Radiologic exam of the right knee. Views: 3 views. Total images: 3 COMPARISON: CR Foot R 11/29/2018 10:38 AM FINDINGS: Bones/joints: Acute nondisplaced fracture of the fibular head / neck. Bones are mildly osteopenic. Mild tricompartment degenerative arthritis. Small suprapatellar joint effusion. No concerning bone lesions or pathologic calcifications. Soft tissues: Unremarkable soft tissues. IMPRESSION: 1. Acute nondisplaced fracture fibular head / neck. 2. Small suprapatellar joint effusion. 3. Mild tricompartment degenerative arthritis.
--- NOTE | 2022-12-20 21:00 | XR_ITS ---
PROCEDURE INFORMATION: Exam: XR Right Tibia and Fibula Exam date and time: 12/20/2022 9:29 PM Age: 52 years old Clinical indication: Injury or trauma; Blunt trauma; Right; Patient HX: Fall this morning, C/O pain lower leg; Additional info: Acute pain after fall TECHNIQUE: Imaging protocol: Radiologic exam of the right tibia and fibula. Views: 2 views. Total images: 4 COMPARISON: CR Foot R 11/29/2018 10:38 AM FINDINGS: Bones/joints: Acute nondisplaced fracture of the fibular head/neck. No additional fracture or joint dislocation. Mild tricompartment degenerative arthritis right knee. Ankle mortise is preserved. Calcaneal enthesophytes. Included hindfoot anatomy appears intact. Soft tissues: Benign soft tissue calcifications near the distal fibula. Mild superficial soft tissue edema. IMPRESSION: Acute nondisplaced fracture fibular head/neck.
--- NOTE | 2022-12-20 21:00 | HMH.EDGENADL ---
Discharge Plan Disposition Patient Disposition: Home, Self-Care Condition: Good Prescriptions Prescriptions: New aspirin 81 mg tablet,delayed release (DR/EC) 81 mg PO DAILY Qty: 10 0RF oxycodone 5 mg tablet 5 mg PO Q8H PRN (Reason: pain) Qty: 12 0RF No Action bupropion HCl 300 MG tablet extended release 24 hr 450 mg PO DAILY lisinopril 10 MG tablet 10 mg PO DAILY oxybutynin chloride 5 MG tablet extended release 24hr 5 mg PO DAILY esomeprazole magnesium 20 MG tablet,delayed release (DR/EC) 20 mg PO BID rosuvastatin 10 MG tablet 20 mg PO HS sertraline 50 MG tablet 50 mg PO DAILY cholecalciferol (vitamin D3) 1,000 UNIT capsule 5,000 unit PO DAILY cetirizine 10 MG capsule 10 mg PO DAILY Referrals Follow up/Referrals: Doug Quinones DO [Staff Physician] - See instructions (fibula head fx, no ligamentous involvement on US) Shari Birmingham [Primary Care Provider] - See instructions Clinical Impressions Clinical Impression: Closed fracture fibula, head Qualifiers: Encounter type: initial encounter Laterality: right Qualified Code(s): S82.831A - Other fracture of upper and lower end of right fibula, initial encounter for closed fracture Instructions Patient Instructions: Fibula Shaft Fracture Discharge ED Provider: Chapin Garcia General Adult HPI General Chief complaint: Extremity Injury, Lower Stated complaint: [id number] right leg pain,home accident Time Seen by Provider: 12/20/22 21:00 Mode of Arrival: Ambulatory Source of Information: Patient Limitations: No Limitations Description of Symptoms (Recalled from ER Triage Doc. by RN): Pt took a fall at home this morning around 1030. States she slipped left leg went forward and she landed on her right knee. She is presenting now with pain located behind her right knee radiating into tib/fib area. Pain 7/10. No previous injuries. Denies hitting her head or LOC. History of Present Illness HPI narrative: Patient presents for evaluation of injury to right knee sustained at 1030 this morning, injury was mechanical in nature, complains of pain over lateral aspect of right knee, moderate in severity, nonradiating, no injury elsewhere, no head injury, no loss of consciousness, no distal numbness or tingling. Previous therapies include Tylenol and ibuprofen with minimal improvement of symptoms. Related Data Home Medications Medication Instructions Recorded Confirmed bupropion HCl 300 mg 24 hr tablet, 450 mg PO DAILY DEPRESSION 05/15/17 11/01/22 extended release esomeprazole magnesium 20 mg 20 mg PO BID GERD 05/15/17 11/01/22 tablet,delayed release lisinopril 10 mg tablet 10 mg PO DAILY Hypertension 05/15/17 11/01/22 oxybutynin chloride 5 mg 5 mg PO DAILY BLADDER 05/15/17 11/01/22 tablet,extended release 24 hr rosuvastatin 10 mg tablet 20 mg PO HS Cholesterol 07/28/18 11/01/22 sertraline 50 mg tablet 50 mg PO DAILY Depression 12/09/20 11/01/22 cetirizine 10 mg capsule 10 mg PO DAILY allergies 05/27/21 11/01/22 cholecalciferol (vitamin D3) 25 5,000 unit PO DAILY Supplement 05/27/21 11/01/22 mcg (1,000 unit) capsule Previous Rx's Medication Instructions Recorded aspirin 81 mg tablet,delayed 81 mg PO DAILY #10 tabs 12/20/22 release oxycodone 5 mg tablet 5 mg PO Q8H PRN pain #12 tabs 12/21/22 Allergies Allergy/AdvReac Type Severity Reaction Status Date / Time ketorolac [From Toradol] Allergy ITCHING Verified 07/13/22 09:37 [facility] Disclaimer: The information contained in this section may have been updated after the patient was seen, as this information can be updated by other users. Social History Smoking Status: Current every day smoker second hand exposure: No alcohol intake: never substance use type: denies use current occupational status: unemployed Travel in the last 8 weeks: None household members:
== END 2022-12-20 23:17 | disposition home or self-care (01) ==
PROVIDERS: Emergency Provider Emergency Medicine; PCP Nurse Practitioner Family
DX: S82.831A Other fracture of upper and lower end of right fibula, initial encounter for closed fracture (principal); W01.0XXA Fall on same level from slipping, tripping and stumbling without subsequent striking against object, initial encounter; F17.200 Nicotine dependence, unspecified, uncomplicated
CPT/HCPCS: 73562; 73590; 99284

== ENCOUNTER 2023-02-24 18:29 | Emergency (ER) | payer MEDICARE, SELFPAY ==
[2023-02-24] VITALS (7 sets, daily range): BP systolic 129–154; BP diastolic 79–90; PULSE 63–76; RESP 16–20; TEMP 36.8–37.1; O2SAT 93–100; BMI 38.3
--- NOTE | 2023-02-24 19:28 | XR_ITS ---
PROCEDURE INFORMATION: Exam: XR Chest Exam date and time: 02/24/2023 7:38 PM Age: 52 years old Clinical indication: Cough and shortness of breath; Additional info: Covid cough TECHNIQUE: Imaging protocol: Radiologic exam of the chest. Views: 2 views. COMPARISON: CR Chest images (no report) 11/16/2018 6:15 PM FINDINGS: Tubes, catheters and devices: Spine stimulator leads at the lower thoracic spine. Lungs: Calcified lateral right mid lung field granuloma. Pleural spaces: Unremarkable. No pleural effusion. No pneumothorax. Heart/Mediastinum: Unremarkable. No cardiomegaly. Bones/joints: Partially imaged spine fusion hardware at the cervicothoracic junction. IMPRESSION: No acute findings.
--- NOTE | 2023-02-24 19:31 | HMH.EDGENADL ---
Discharge Plan Disposition Patient Disposition: Home, Self-Care Prescriptions Prescriptions: New ioxwpxxwlgkmdin-aafmrgleq-DM [Bromfed DM] 2-30-10 mg/5 mL syrup 5 ml PO Q6H PRN (Reason: cold symptoms) Qty: 118 0RF No Action bupropion HCl 300 MG tablet extended release 24 hr 450 mg PO DAILY lisinopril 10 MG tablet 10 mg PO DAILY oxybutynin chloride 5 MG tablet extended release 24hr 5 mg PO DAILY esomeprazole magnesium 20 MG tablet,delayed release (DR/EC) 20 mg PO BID rosuvastatin 10 MG tablet 20 mg PO HS aspirin 81 mg tablet,delayed release (DR/EC) 81 mg PO DAILY Qty: 10 0RF oxycodone 5 mg tablet 5 mg PO Q8H PRN (Reason: pain) Qty: 12 0RF sertraline 50 MG tablet 50 mg PO DAILY cholecalciferol (vitamin D3) 1,000 UNIT capsule 5,000 unit PO DAILY cetirizine 10 MG capsule 10 mg PO DAILY Referrals Follow up/Referrals: Shari Birmingham [Primary Care Provider] - See instructions Activity Restrictions/Add. Instructions Additional Instructions/Restrictions: At this time it was felt you are safe to be discharged home. If new or worsening symptoms please do not hesitate to return the emergency department. If symptoms persist please follow-up with your family doctor as you are able. Please follow-up with your family doctor for recheck of your potassium when you are able. Clinical Impressions Clinical Impression: COVID-19, Hypokalemia Discharge ED Provider: Yury Johnson General Adult HPI General Chief complaint: Shortness of Breath/Dyspnea Stated complaint: covid + SOA Time Seen by Provider: 02/24/23 19:00 Mode of Arrival: Ambulatory Source of Information: Patient Limitations: No Limitations Description of Symptoms (Recalled from ER Triage Doc. by RN): 52 yo F presents to ED with c/o shortness of air. pt reports she was diagnosed with covid last tuesday. for the past two days pt has been having shortness of air with excertion and rest. pt does not wear home O2. History of Present Illness HPI narrative: Patient is a 52-year-old female with past medical history of recently diagnosed COVID who presents emergency department for evaluation of cough and shortness of breath. History is obtained by patient at bedside. Patient was reportedly diagnosed with COVID last Tuesday, she has had persistent shortness of breath and cough causing her to present here for continued evaluation. There is associated global myalgias. No other acute complaints at this time. Related Data Home Medications Medication Instructions Recorded Confirmed bupropion HCl 300 mg 24 hr tablet, 450 mg PO DAILY DEPRESSION 05/15/17 11/01/22 extended release esomeprazole magnesium 20 mg 20 mg PO BID GERD 05/15/17 11/01/22 tablet,delayed release lisinopril 10 mg tablet 10 mg PO DAILY Hypertension 05/15/17 11/01/22 oxybutynin chloride 5 mg 5 mg PO DAILY BLADDER 05/15/17 11/01/22 tablet,extended release 24 hr rosuvastatin 10 mg tablet 20 mg PO HS Cholesterol 07/28/18 11/01/22 sertraline 50 mg tablet 50 mg PO DAILY Depression 12/09/20 11/01/22 cetirizine 10 mg capsule 10 mg PO DAILY allergies 05/27/21 11/01/22 cholecalciferol (vitamin D3) 25 5,000 unit PO DAILY Supplement 05/27/21 11/01/22 mcg (1,000 unit) capsule Previous Rx's Medication Instructions Recorded aspirin 81 mg tablet,delayed 81 mg PO DAILY #10 tabs 12/20/22 release oxycodone 5 mg tablet 5 mg PO Q8H PRN pain #12 tabs 12/21/22 vvjklmsohgpttvg-bjejsehwexgmnfd-HQ 5 ml PO Q6H PRN cold symptoms #118 02/24/23 2 mg-30 mg-10 mg/5 mL oral syrup mL (Bromfed DM) Allergies Allergy/AdvReac Type Severity Reaction Status Date / Time ketorolac [From Toradol] Allergy ITCHING Verified 07/13/22 09:37 [facility] Disclaimer: The information contained in this section may have been updated after the patient was seen, as this information can be updated by other users. Social History (Reviewed 07/13/22 @ 09:37 b
[2023-02-24 19:37] LABS: Chloride 106 mmol/L (98-107); Potassium 3.2 mmoL/L (3.5-5.1); Sodium 140 mmol/L (136-145)
[2023-02-24 19:39] LABS: Blood Urea Nitrogen 21 mg/dl (7-17); Creatinine Clearance Estimated 141 mL/min (50-200); Estimated Glomerular Filt Rate 75 ml/min (>60); GFR (African American) 90 ML/MIN (>60)
[2023-02-24 19:40] LABS: Alanine Aminotransferase 35 U/L (12-78); Albumin Level 4.1 g/dl (3.5-5.0); Albumin/Globulin Ratio 1.5 (1.1-1.8); Alkaline Phosphatase 91 U/L (38-126); Anion Gap 9.2 mEq/L (5-15); Aspartate Amino Transferase 53 U/L (14-36); Bilirubin,Total 0.3 mg/dl (0.2-1.3); Carbon Dioxide 28 mmol/L (22.0-30.0); Creatine Kinase 62 U/L (30-135); Globulin 2.8 g/dL (1.3-3.2); Glucose 85 mg/dl (74-100); Total Protein,Serum 6.9 g/dl (6.3-8.2)
[2023-02-24 19:44] LABS: Basophils # 0.1 K/mm3 (0-0.2); Basophils % 0.8 % (0.1-2.0); Eosinophils # 0.3 K/mm3 (0.0-0.4); Eosinophils % 2.8 % (0.1-12.0); Hematocrit 39.4 % (37.0-47.0); Hemoglobin 13.5 g/dL (12.2-16.2); Lymphocytes # 3.9 K/mm3 (0.7-4.5); Lymphocytes % 43.4 % (10-50); Mean Corpuscular HGB Conc 34.2 g/dL (31.8-35.4); Mean Corpuscular Hemoglobin 33.4 pg (27.0-31.2); Mean Corpuscular Volume 97.7 fl (81-99); Mean Platelet Volume 7.9 fl (7.4-10.4); Monocytes # 0.6 K/mm3 (0.1-1.0); Monocytes % 6.8 % (1.7-9.3); Neutrophils # 4.2 K/mm3 (1.8-7.8); Neutrophils % 46.2 % (37.0-80.0); Platelet Count 335 K/mm3 (142-424); Red Blood Count 4.04 M/mm3 (4.20-5.40); Red Cell Distribution Width 13.1 % (11.5-17.5); White Blood Count 9.1 K/mm3 (4.8-10.8)
[2023-02-24 19:50] LABS: Influenza A, PCR Not Detected (NotDetected); Influenza B, PCR Not Detected (NotDetected)
[2023-02-24 20:12] LABS: Coronavirus 19, PCR Detected (NotDetected)
== END 2023-02-24 21:31 | disposition home or self-care (01) ==
PROVIDERS: Emergency Provider Emergency Medicine; PCP Nurse Practitioner Family
DX: U07.1 COVID-19 (principal); E87.6 Hypokalemia; F17.210 Nicotine dependence, cigarettes, uncomplicated
CPT/HCPCS: 71046; 80053; 82550; 85025; 87636; 96361; 96374; 96375; 99284

== ENCOUNTER 2023-05-04 17:54 | Emergency (ER) | payer MEDICARE, SELFPAY ==
[2023-05-04 18:43] VITALS: BP 141/90; PULSE 72; RESP 19; TEMP 36.7; O2SAT 100; BMI 36.7
[2023-05-04 18:47] LABS: Adenovirus,PCR Not Detected (NotDetected); Coronavirus 19, PCR Not Detected (NotDetected); Coronavirus 229E Not Detected (NotDetected); Coronavirus NL63 Not Detected (NotDetected); Coronovirus HKU1,PCR Not Detected (NotDetected); Human Metapneumovirus Not Detected (NotDetected); Influenza A, PCR Not Detected (NotDetected); Influenza AH1, 2009 Not Detected (NotDetected); Influenza AH1, PCR Not Detected (NotDetected); Influenza AH3,PCR Not Detected (NotDetected); Influenza B, PCR Not Detected (NotDetected); Parainfluenza 1, PCR Not Detected (NotDetected); Parainfluenza 2, PCR Not Detected (NotDetected); Parainfluenza 3, PCR Not Detected (NotDetected); Parainfluenza 4, PCR Not Detected (NotDetected); Respiratory Syncytial Virus Not Detected (NotDetected); Rhinovirus/Enterovirus Not Detected (NotDetected)
--- NOTE | 2023-05-04 19:11 | ED_ITS ---
Discharge Plan Disposition Patient Disposition: Home, Self-Care Condition: Good Prescriptions Prescriptions: New amoxicillin 500 mg capsule 500 mg PO TID 7 Days Qty: 21 0RF No Action bupropion HCl 300 MG tablet extended release 24 hr 450 mg PO DAILY lisinopril 10 MG tablet 10 mg PO DAILY oxybutynin chloride 5 MG tablet extended release 24hr 5 mg PO DAILY esomeprazole magnesium 20 MG tablet,delayed release (DR/EC) 20 mg PO BID rosuvastatin 10 MG tablet 20 mg PO HS aspirin 81 mg tablet,delayed release (DR/EC) 81 mg PO DAILY Qty: 10 0RF oxycodone 5 mg tablet 5 mg PO Q8H PRN (Reason: pain) Qty: 12 0RF lcfffubljwpelfj-dhbbrotjx-EG [Bromfed DM] 2-30-10 mg/5 mL syrup 5 ml PO Q6H PRN (Reason: cold symptoms) Qty: 118 0RF sertraline 50 MG tablet 50 mg PO DAILY cholecalciferol (vitamin D3) 1,000 UNIT capsule 5,000 unit PO DAILY cetirizine 10 MG capsule 10 mg PO DAILY Referrals Follow up/Referrals: Shari Birmingham [Primary Care Provider] - See instructions Activity Restrictions/Add. Instructions Additional Instructions/Restrictions: *Monitor Temp, Over the counter Motrin or Tylenol as directed/as needed Tylenol every 4 hours and Motrin every 6 hours (as long as your family doctor has told you that you can take it) for fever or pain. and straight to ER if unable to lower temp less than 101.0 after medication given *Warm salt water gargles may help to soothe the throat *Throat Lozenges? *Warm fluids like tea with honey may help to soothe the throat? *Sleep elevated *Humidifier/Vaporizer Take medication as prescribed Your throat swab was sent for culture. Those results are typically sent to your primary care. Be sure to follow up in 2-3 days with your family doctor /primary care physician if no improvement so they can review those result and treat if necessary. If you don?t have a primary care doctor, I recommend you get one but in the mean time, you will have to return to a walk in clinic Follow up IMMEDIATELY for new or worsening symptoms or no Noticeable improvement over the next 48-72 hours. 911 for difficulty breathing or swallowing Clinical Impressions Clinical Impression: Otitis media Qualifiers: Otitis media type: unspecified Laterality: left Qualified Code(s): H66.92 - Otitis media, unspecified, left ear Instructions Patient Instructions: Sore Throat, Middle Ear Infection Discharge ED Provider: Martha Amezcua [facility] General Stated complaint: sore throat Mode of Arrival: Ambulatory Source of Information: Patient Limitations: No Limitations Time Seen by Provider: 05/04/23 19:11 Description of Symptoms (Recalled from Triage Doc. by RN): Patient reports sore throat, cough, itchy eyes, and ear pain for 2 days. HEENT Symptoms (Recalled from RN notes): Yes Resp Symptoms (Recalled from RN notes): No Skin Symptoms (Recalled from RN notes): No MS Symptoms (Recalled from RN notes): No Functional Status (Recalled from RN notes): wnl History of Present Illness Provider Complaint: Patient states that for the last couple of days she has been having pain in her ears, sore throat, itchy watery eyes and over all not feeling well States that today her ears and throat was hurting worse so she came in to get checked Related Data Home Medications Medication Instructions Recorded Confirmed bupropion HCl 300 mg 24 hr tablet, 450 mg PO DAILY DEPRESSION 05/15/17 11/01/22 extended release esomeprazole magnesium 20 mg 20 mg PO BID GERD 05/15/17 11/01/22 tablet,delayed release lisinopril 10 mg tablet 10 mg PO DAILY Hypertension 05/15/17 11/01/22 oxybutynin chloride 5 mg 5 mg PO DAILY BLADDER 05/15/17 11/01/22 tablet,extended release 24 hr rosuvastatin 10 mg tablet 20 mg PO HS Cholesterol 07/28/18 11/01/22 sertraline 50 mg tablet 50 mg PO DAILY Depression 12/09/20 11/01/22 cetirizine 10 mg capsule 10 mg PO DAILY allergies 05/27/21 11/01/22 cholecalciferol (vitamin D3) 25 5,000 unit PO DAILY Supplement 05/27/21 11/01/22 mcg (1,000 unit) capsule Previous Rx's Medication Instructions Recorded aspirin 81 mg tablet,delayed 81 mg PO DAILY #10 tabs 12/20/22 release oxycodone 5 mg tablet 5 mg PO Q8H PRN pain #12 tabs 12/21/22 qxnohmygdlknhll-zxofmzqjpwxbwcw-EG 5 ml PO Q6H PRN cold symptoms #118 02/24/23 2 mg-30 mg-10 mg/5 mL oral syrup mL (Bromfed DM) amoxicillin 500 mg capsule 500 mg PO TID 7 days #21 caps 05/04/23 Allergies Allergy/AdvReac Type Severity Reaction Status Date / Time ketorolac [From Toradol] Allergy ITCHING Verified 07/13/22 09:37 Worker's Comp Is this a Worker's Comp case?: No PFSH [facility] Disclaimer: The information contained in this section may have been updated after the patient was seen, as this information can be updated by other users. Social History Smoking Status: Current every day smoker second hand exposure: No alcohol intake: never substance use type: denies use current occupational status: unemployed Travel in the last 8 weeks: None household members: spouse housing: house current occupation: [employer] current occupational exposures/hazards: No caffeine: Yes ROS Obtained: Yes All systems reviewed & no additional complaints except as documented and Yes Systems reviewed as appropriate & no additional complaints except as documented Constitutional Constitutional: Reports system reviewed and no additional complaints, except as documented, Reports as per HPI and Reports headache(s) ENT Ears, Nose, Mouth, and Throat: Reports system reviewed and no additional complaints, except as documented, Reports as per HPI, Reports otalgia, Reports headache(s) and Reports sore throat Cardiovascular Cardiovascular: Reports system reviewed and no additional complaints, except as documented and Reports as per HPI Respiratory Respiratory: Reports system reviewed and no additional complaints, except as documented and Reports as per HPI Gastrointestinal Gastrointestingal: Reports system reviewed and no additional complaints, except as documented and as per HPI Neurologic Neurologic: Reports headache(s) Physical Exam General General appearance: alert and in no apparent distress ENT ENT exam: Present mucous membranes moist Expanded ENT Exam TM/Canal exam: Left TM: erythema and bulging Throat exam: Present other (Pharyngeal erythema noted with PND) Respiratory Respiratory exam: Present normal lung sounds bilaterally; Absent respiratory distress or wheezes Cardiovascular Cardiovascular exam: Present regular rate, normal rhythm and normal heart sounds Abdominal Exam Abdominal exam: Present soft and normal bowel sounds; Absent distention or tenderness Neurological Exam Neurological exam: Present alert, oriented X3 and normal gait Medical Decision Making Ryan Inquiry Pt receiving controlled substance: No Ryan was queried for this patient: No Vital Signs: 05/04/23 18:43 Temperature 98.1 F Temperature Source Oral Pulse Rate [Radial] 72 Respiratory Rate 19 Blood Pressure [Right Arm] 141/90 H Blood Pressure Mean [Right Arm] 107 Blood Pressure Source [Right Arm] Automatic Cuff Blood Pressure Position [Right Arm] Sitting 02 Sat by Pulse Oximetry 100 Oxygen Delivery Method Room Air Lab Data Lab results reviewed: Yes I reviewed the patient's lab results. Orders (Tests/Meds): ORDERS Category Date Time Status Full Resp Panel w/COVID ([facility]) Routine Lab 05/04/23 18:40 Received
[2023-05-04 19:26] VITALS: BP 141/90; PULSE 72; RESP 19; TEMP 36.7
[2023-05-05 11:22] LABS: Coronavirus OC43 Detected (NotDetected)
== END 2023-05-04 19:27 | disposition home or self-care (01) ==
PROVIDERS: Emergency Provider Nurse Practitioner; PCP Nurse Practitioner Family
DX: H66.92 Otitis media, unspecified, left ear (principal); B34.2 Coronavirus infection, unspecified; R07.0 Pain in throat; R05.9 Cough, unspecified; F17.210 Nicotine dependence, cigarettes, uncomplicated
CPT/HCPCS: 87581; 87632; 87635; 87798; 99212; 99214; G0463

== ENCOUNTER 2023-05-11 18:24 | Emergency (ER) | payer MEDICARE, SELFPAY ==
[2023-05-11 18:50] VITALS: BP 137/78; PULSE 71; RESP 18; TEMP 36.7; O2SAT 100; BMI 39.1
--- NOTE | 2023-05-11 19:06 | EXP.UTC ---
Discharge Plan Disposition Patient Disposition: Home, Self-Care Condition: Good Prescriptions Prescriptions: New rldadlheprigcrl-cwkswvyig-TY [Bromfed DM] 2-30-10 mg/5 mL syrup 10 ml PO QID PRN (Reason: cold symptoms) Qty: 118 0RF No Action bupropion HCl 300 MG tablet extended release 24 hr 450 mg PO DAILY lisinopril 10 MG tablet 10 mg PO DAILY oxybutynin chloride 5 MG tablet extended release 24hr 5 mg PO DAILY esomeprazole magnesium 20 MG tablet,delayed release (DR/EC) 20 mg PO BID rosuvastatin 10 MG tablet 20 mg PO HS aspirin 81 mg tablet,delayed release (DR/EC) 81 mg PO DAILY Qty: 10 0RF oxycodone 5 mg tablet 5 mg PO Q8H PRN (Reason: pain) Qty: 12 0RF celecoxib 200 mg capsule 200 mg PO DAILY Patient Comments: TAKE 1 CAPSULE 1 TIME EACH DAY WITH FOOD NEEDED FOR ARTHRITIS PAIN sertraline 50 MG tablet 100 mg PO DAILY cholecalciferol (vitamin D3) 1,000 UNIT capsule 5,000 unit PO DAILY cetirizine 10 MG capsule 10 mg PO DAILY amoxicillin 500 mg capsule 500 mg PO TID 7 Days Qty: 21 0RF Referrals Follow up/Referrals: Shari Birmingham [Primary Care Provider] - See instructions Activity Restrictions/Add. Instructions Additional Instructions/Restrictions: No sign of a bacterial infection. Likely viral. Viruses can take 7-14 days to run their course. Nasal saline and bulb syringe or nose Livier to remove nasal drainage to help with nasal congestion. Hard to eat, drink, sleep with nasal congestion so important to keep this cleaned out. Monitor temp. Tylenol or Motrin as needed for pain or fever Encourage fluids, water, Gatorade, Powerade, Pedialyte if /toddler/child Warm salt water gargles Warm fluids Sore throat lozenges Sleep elevated Humidifier/vaporizer Follow-up immediately for new or worsening symptoms or no noticeable improvement over the next 48-72 hours. Clinical Impressions Clinical Impression: Upper respiratory infection Qualifiers: URI type: unspecified viral URI Qualified Code(s): J06.9 - Acute upper respiratory infection, unspecified Instructions Patient Instructions: DI for Viral Upper Respiratory Infection -- Adult Discharge ED Provider: Cedric ([facility])[place] [facility] [place] General Stated complaint: covid + fatigue, cough FRANCOIS Mode of Arrival: Ambulatory Source of Information: Patient Limitations: No Limitations Time Seen by Provider: 05/11/23 19:06 Description of Symptoms (Recalled from Triage Doc. by RN): cough, FRANCOIS, fatigue, body aches, and tired. HEENT Symptoms (Recalled from RN notes): Yes Resp Symptoms (Recalled from RN notes): No Skin Symptoms (Recalled from RN notes): No MS Symptoms (Recalled from RN notes): No Functional Status (Recalled from RN notes): n/a History of Present Illness Provider Complaint: 52 yr old female presents for cough, FRANCOIS, fatigue, body aches, and tired. pt states she was given bromfed and symptoms improved but she is out and would like refill Related Data Home Medications Medication Instructions Recorded Confirmed bupropion HCl 300 mg 24 hr tablet, 450 mg PO DAILY DEPRESSION 05/15/17 05/11/23 extended release esomeprazole magnesium 20 mg 20 mg PO BID GERD 05/15/17 05/11/23 tablet,delayed release lisinopril 10 mg tablet 10 mg PO DAILY Hypertension 05/15/17 05/11/23 oxybutynin chloride 5 mg 5 mg PO DAILY BLADDER 05/15/17 05/11/23 tablet,extended release 24 hr rosuvastatin 10 mg tablet 20 mg PO HS Cholesterol 07/28/18 05/11/23 sertraline 50 mg tablet 100 mg PO DAILY Depression 12/09/20 05/11/23 cetirizine 10 mg capsule 10 mg PO DAILY allergies 05/27/21 05/11/23 cholecalciferol (vitamin D3) 25 5,000 unit PO DAILY Supplement 05/27/21 05/11/23 mcg (1,000 unit) capsule celecoxib 200 mg capsule 200 mg PO DAILY 05/11/23 05/11/23 Previous Rx's Medication Instructions Recorded aspirin 81 mg tablet,delayed 81 mg PO DAILY #10 tabs 12/20/22 release oxycodone 5 mg tablet 5 mg PO Q8H PRN pain #12 tabs 12/21/22 amoxicillin 500 mg capsule 500 mg PO TID 7 days #21 caps 05/04/23 tyqktseikgpgwqu-jzaagdutsozcadz-UD 10 ml PO QID PRN cold symptoms 05/11/23 2 mg-30 mg-10 mg/5 mL oral syrup #118 mL (Bromfed DM) Allergies Allergy/AdvReac Type Severity Reaction Status Date / Time ketorolac [From Toradol] Allergy ITCHING Verified 05/11/23 19:00 Worker's Comp Is this a Worker's Comp case?: No PFSH [facility] Disclaimer: The information contained in this section may have been updated after the patient was seen, as this information can be updated by other users. Social History , [employer]) Smoking Status: Current every day smoker second hand exposure: No alcohol intake: never substance use type: denies use current occupational status: unemployed Travel in the last 8 weeks: None household members: spouse housing: house current occupation: [employer] current occupational exposures/hazards: No caffeine: Yes ROS Obtained: Yes All systems reviewed & no additional complaints except as documented Constitutional Constitutional: Reports system reviewed and no additional complaints, except as documented and Reports as per HPI Eyes Eyes: Reports system reviewed and no additional complaints, except as documented ENT Ears, Nose, Mouth, and Throat: Reports system reviewed and no additional complaints, except as documented, Reports as per HPI, Reports otalgia, Reports nasal congestion, Reports nasal discharge, Reports sinus pain and Reports sinus pressure Cardiovascular Cardiovascular: Reports system reviewed and no additional complaints, except as documented Respiratory Respiratory: Reports system reviewed and no additional complaints, except as documented, Reports as per HPI, Reports chest congestion and Reports cough Gastrointestinal Gastrointestingal: Reports system reviewed and no additional complaints, except as documented Integumentary/Breasts Skin/Breast: Reports system reviewed and no additional complaints, except as documented Neurologic Neurologic: Reports system reviewed and no additional complaints, except as documented Endocrine Endocrine: Reports system reviewed and no additional complaints, except as documented Hematologic/Lymphatic Henatologic/Lymphatic: Reports system reviewed and no additional complaints, except as documented Allergic/Immunologic Allergic/Immunologic: Reports system reviewed and no additional complaints, except as documented Physical Exam General General appearance: alert and in no apparent distress Head Head exam: atraumatic Eye Eye exam: Present normal appearance and PERRL ENT ENT exam: Present normal exam, normal oropharynx, mucous membranes moist and TM's normal bilaterally Respiratory Respiratory exam: Present normal lung sounds bilaterally Cardiovascular Cardiovascular exam: Present regular rate and normal rhythm Neurological Exam Neurological exam: Present alert and oriented X3 Skin Skin exam: Present warm Medical Decision Making Medical Records Medical records reviewed: Yes I reviewed the patient's medical records. Ryan Inquiry Pt receiving controlled substance: No Ryan was queried for this patient: No Vital Signs: 05/11/23 18:50 Temperature 98.1 F Temperature Source Oral Pulse Rate [Right Radial] 71 Respiratory Rate 18 Blood Pressure [Right Arm] 137/78 Blood Pressure Mean [Right Arm] 97 Blood Pressure Source [Right Arm] Automatic Cuff Blood Pressure Position [Right Arm] Sitting 02 Sat by Pulse Oximetry 100 Oxygen Delivery Method Room Air Lab Data Lab results reviewed: Yes I reviewed the patient's lab results.
[2023-05-11 19:16] VITALS: BP 131/78; PULSE 71; RESP 18; TEMP 36.7; O2SAT 100
== END 2023-05-11 19:16 | disposition home or self-care (01) ==
PROVIDERS: Emergency Provider Nurse Practitioner Family; PCP Nurse Practitioner Family
DX: R51.9 Headache, unspecified (principal); J06.9 Acute upper respiratory infection, unspecified; R05.9 Cough, unspecified; R53.83 Other fatigue; R09.81 Nasal congestion; F17.210 Nicotine dependence, cigarettes, uncomplicated
CPT/HCPCS: 99212; 99214; G0463

== ENCOUNTER → 2023-06-09 10:16 | Outpatient (POV) | payer MEDICARE, SELFPAY ==
[2023-06-09 10:53] VITALS: BP 120/84; PULSE 74; RESP 18; O2SAT 97; BMI 40.7
--- NOTE | 2023-06-09 11:03 | A.OFFVIS_ITS ---
[facility] Pain Management SOAP Note Subjective:: Patient is a pleasant 52-year-old female who presents today for follow-up. We are currently treating the patient for degenerative disc disease of lumbar spine with lumbar radiculopathy symptoms, sacroiliitis, status post right SI stabilization procedure. Today she rates her pain a 5 out of 10. Patient denies any new injury or trauma since our last visit. Patient does states she is experiencing worsening pain in and around her low back and left hip. Patient does describe this as an aching, throbbing sensation that is fairly constant with occasional sharp shooting pains and tingling. Patient states the pain does interfere with her ability perform activities of daily living such as cooking and cleaning. Patient has previously had chronic sacroiliitis and has had injections in the past that did provide significant relief. Her last SI injection was in the left that provided 80% improvement lasting several months and this was done in October 2022. Patient does also state since our last visit she has had surgery on her elbow as well as left knee for meniscus tear and carpal tunnel surgery. Patient states she continues to have issues with her left knee and that there is talk of possibly having it replaced in the future. Patient does have a [employer] spinal cord stimulator and place and does state that it is still helping however she has not had it reprogrammed recently. Her Ryan has been reviewed and is appropriate. Review of Systems: General: No recent weight changes, no fever, no sleep disturbances Respiratory: No cough, no shortness of air, no recurring pulmonary infections Cardiovascular/peripheral vascular: No chest pain, no palpitations, no edema, no shortness of breath Gastrointestinal: No new onset incontinence, normal bowel movements reported Genitourinary: No new onset incontinence Musculoskeletal: Low back pain, left hip pain Psychiatric: [Normal mood/affect] Neurological: [Denies weakness in extremities], [denies balance issues] Objective:: Physical Exam: General: Alert and oriented x3, no acute distress, pleasant and cooperative Lungs: Respirations even and unlabored, symmetrical chest expansion Eyes: PERRL Musculoskeletal: Flexion and extension of lumbar [spine] somewhat guarded s econdary to pain, [antalgic gait noted] point tenderness along left SI with positive left Kirstin's, Ez's, Gaenslen's, compression and distraction exam Neurological: Speech clear, no gross sensory deficit Assessment:: Degenerative disc disease of lumbar spine with lumbar radiculopathy symptoms, chronic sacroiliitis, status post right SI stabilization procedure Plan:: Patient is experiencing worsening pain in her low back and left hip with limited range of motion. Patient did have point tenderness along her left SI and a positive left Kirstin's, Ez's, Gaenslen's, compression and distraction exam. Patient did previously have a left SI injection back in October 2022 that did provide 80% relief lasting several months. I have discussed with patient that she may benefit from repeat SI injection. Risk and benefits were discussed with patient and she would like to proceed forward with this plan of care. I will also reach out to [employer] representatives and make sure that they are present for the injection date for reprogramming as well. Patient will be scheduled for left SI injection under fluoroscopy. Patient has been instructed to contact the clinic with any concerns before the next appointment. Dr. Fitch has reviewed this note and agrees with this plan of care. This note was dictated using voice recognition software and make contain errors or omissions. [facility] Disclaimer: The information contained in this section may have been updated after the patient was seen, as this information can be updated by other users. 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
== END ==
PROVIDERS: Visit Provider Nurse Practitioner Family
DX: M51.16 Intervertebral disc disorders with radiculopathy, lumbar region (principal); M46.1 Sacroiliitis, not elsewhere classified; G89.29 Other chronic pain
CPT/HCPCS: 99212; G0463

== ENCOUNTER 2023-06-22 14:21 | Emergency (ER) | payer MEDICARE, MEDICAID, SELFPAY ==
[2023-06-22 14:40] VITALS: BP 145/98; PULSE 70; RESP 18; TEMP 36.8; O2SAT 100; BMI 39.7
--- NOTE | 2023-06-22 14:58 | EXP.UTC ---
Discharge Plan Disposition Patient Disposition: Home, Self-Care Condition: Good Prescriptions Prescriptions: New methylprednisolone 4 mg Tablets,Dose Pack 4 mg PO DIRECTED 6 Days Qty: 21 0RF Rx Instructions: Take 1 pack as directed for 6 days benzonatate [benzonatate] 100 mg capsule 100 mg PO TIDP PRN (Reason: Cough) Qty: 30 0RF amoxicillin-pot clavulanate 875-125 mg Tablet 1 tab PO Q12H Qty: 20 0RF guaifenesin [Mucinex] 600 mg tablet extended release 12hr 600 - 1,200 mg PO BIDP PRN (Reason: Congestion) Qty: 30 0RF No Action bupropion HCl 300 MG tablet extended release 24 hr 450 mg PO DAILY lisinopril 10 MG tablet 10 mg PO DAILY oxybutynin chloride 5 MG tablet extended release 24hr 5 mg PO DAILY esomeprazole magnesium 20 MG tablet,delayed release (DR/EC) 20 mg PO BID rosuvastatin 10 MG tablet 20 mg PO HS aspirin 81 mg tablet,delayed release (DR/EC) 81 mg PO DAILY Qty: 10 0RF oxycodone 5 mg tablet 5 mg PO Q8H PRN (Reason: pain) Qty: 12 0RF celecoxib 200 mg capsule 200 mg PO DAILY Patient Comments: TAKE 1 CAPSULE 1 TIME EACH DAY WITH FOOD NEEDED FOR ARTHRITIS PAIN sertraline 50 MG tablet 100 mg PO DAILY cholecalciferol (vitamin D3) 1,000 UNIT capsule 5,000 unit PO DAILY cetirizine 10 MG capsule 10 mg PO DAILY Referrals Follow up/Referrals: Shari Birmingham [Primary Care Provider] - See instructions Activity Restrictions/Add. Instructions Additional Instructions/Restrictions: Drink plenty of fluids. Take tylenol or ibuprofen for pain or fever. Take the medications as directed. Follow up with your regular doctor. GO TO THE ER FOR ANY WORSENING SYMPTOMS Clinical Impressions Clinical Impression: Sinusitis, Bronchitis, Acute viral syndrome Instructions Patient Instructions: DI for Sinusitis, DI for Acute Bronchitis Discharge ED Provider: Guy Franco [facility] General Stated complaint: drainage, cough, sore throat Mode of Arrival: Ambulatory Source of Information: Patient Limitations: No Limitations Time Seen by Provider: 06/22/23 14:57 Description of Symptoms (Recalled from Triage Doc. by RN): Pt's symptoms are cough, drainage, and sore throat. HEENT Symptoms (Recalled from RN notes): Yes Resp Symptoms (Recalled from RN notes): No Skin Symptoms (Recalled from RN notes): No MS Symptoms (Recalled from RN notes): No Functional Status (Recalled from RN notes): n/a History of Present Illness Provider Complaint: She states that for the past 2 days she has had sinus congestion, headache, sore throat, chilling, body aches and malaise. Related Data Home Medications Medication Instructions Recorded Confirmed bupropion HCl 300 mg 24 hr tablet, 450 mg PO DAILY DEPRESSION 05/15/17 06/09/23 extended release esomeprazole magnesium 20 mg 20 mg PO BID GERD 05/15/17 06/09/23 tablet,delayed release lisinopril 10 mg tablet 10 mg PO DAILY Hypertension 05/15/17 06/09/23 oxybutynin chloride 5 mg 5 mg PO DAILY BLADDER 05/15/17 06/09/23 tablet,extended release 24 hr rosuvastatin 10 mg tablet 20 mg PO HS Cholesterol 07/28/18 06/09/23 sertraline 50 mg tablet 100 mg PO DAILY Depression 12/09/20 06/09/23 cetirizine 10 mg capsule 10 mg PO DAILY allergies 05/27/21 06/09/23 cholecalciferol (vitamin D3) 25 5,000 unit PO DAILY Supplement 05/27/21 06/09/23 mcg (1,000 unit) capsule celecoxib 200 mg capsule 200 mg PO DAILY 05/11/23 06/09/23 Previous Rx's Medication Instructions Recorded aspirin 81 mg tablet,delayed 81 mg PO DAILY #10 tabs 12/20/22 release oxycodone 5 mg tablet 5 mg PO Q8H PRN pain #12 tabs 12/21/22 amoxicillin 875 mg-potassium 1 tab PO Q12H #20 tabs 06/22/23 clavulanate 125 mg tablet benzonatate 100 mg capsule 100 mg PO TIDP PRN Cough #30 caps 06/22/23 guaifenesin 600 mg tablet, 600 - 1,200 mg PO BIDP PRN 06/22/23 extended release 12 hr (Mucinex) Congestion #30 tabs methylprednisolone 4 mg tablets in 4 mg PO DIRECTED 6 days #21 tabs 06/22/23 a dose pack Allergies Allergy/AdvReac Type Severity Reaction Status Date / Time ketorolac [From Toradol] Allergy ITCHING Verified 06/22/23 14:50 Worker's Comp Is this a Worker's Comp case?: No [facility] Disclaimer: The information contained in this section may have been updated after the patient was seen, as this information can be updated by other users. 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/hazards: No caffeine: Yes ROS Obtained: Yes All systems reviewed & no additional complaints except as documented Constitutional Constitutional: Reports chills and Reports fever(s) Eyes Eyes: Denies eye discharge ENT Ears, Nose, Mouth, and Throat: Reports as per HPI Cardiovascular Cardiovascular: Denies chest pain Respiratory Respiratory: Denies chest congestion and Reports cough Gastrointestinal Gastrointestingal: Reports nausea; Denies abdominal pain, constipation, cramping, diarrhea or vomiting Musculoskeletal Musculoskeletal: Denies arthralgias Integumentary/Breasts Skin/Breast: Denies rash Neurologic Neurologic: Denies paresthesias Physical Exam General General appearance: alert and in no apparent distress Eye Eye exam: Present normal appearance, PERRL and EOMI ENT ENT exam: Present mucous membranes moist and normal external ear exam Expanded ENT Exam External ear exam: Present normal external inspection TM/Canal exam: Bilateral TM: erythema and bulging Nose exam: Absent sinus tenderness Nasal speculum exam: Bilateral: normal Mouth exam: Present normal external inspection; Absent drooling Teeth exam: Present normal inspection Throat exam: Present tonsillar erythema and tonsillomegaly Neck Neck exam: Present normal inspection, full ROM and trachea midline; Absent tenderness, lymphadenopathy or thyromegaly Chest Chest inspection: Present normal inspection and symmetric chest wall rise; Absent tenderness or rash Respiratory Respiratory exam: Present normal lung sounds bilaterally; Absent respiratory distress, wheezes, stridor or accessory muscle use Cardiovascular Cardiovascular exam: Present regular rate, normal rhythm and normal heart sounds Abdominal Exam Abdominal exam: Present soft; Absent distention, tenderness, guarding, rebound or rigidity Extremities Exam Extremities exam: Present normal inspection, full ROM and normal capillary refill; Absent tenderness or calf tenderness Back Exam Back exam: Present normal inspection and full ROM; Absent tenderness Neurological Exam Neurological exam: Present alert and oriented X3 Psychiatric Psychiatric exam: Present normal affect and normal mood Skin Skin exam: Present warm, dry, intact and normal color Lymphatic Lymphatic Findings: no adenopathy Medical Decision Making Medical Records Medical records reviewed: No I reviewed the patient's medical records. Ryan Inquiry Pt receiving controlled substance: No Vital Signs: 06/22/23 14:40 Temperature 98.3 F Temperature Source Oral Pulse Rate [Right Radial] 70 Respiratory Rate 18 Blood Pressure [Right Arm] 145/98 H Blood Pressure Mean [Right Arm] 113 Blood Pressure Source [Right Arm] Automatic Cuff Blood Pressure Position [Right Arm] Sitting 02 Sat by Pulse Oximetry 100 Oxygen Delivery Method Room Air Lab Data Lab results reviewed: Yes I reviewed the patient's lab results.
[2023-06-22 15:16] LABS: UTC Influenza A Antigen Negative (Negative); UTC Influenza B Antigen Negative (Negative)
[2023-06-22 15:16] LABS: UTC Strep Screen (Rapid) Negative (Negative)
[2023-06-22 15:42] LABS: Coronavirus 19, PCR Not Detected (NotDetected); Influenza A, PCR Not Detected (NotDetected); Influenza B, PCR Not Detected (NotDetected)
[2023-06-22 15:43] VITALS: BP 145/98; PULSE 70; RESP 18; TEMP 36.8; O2SAT 100
== END 2023-06-22 15:43 | disposition home or self-care (01) ==
PROVIDERS: Emergency Provider Nurse Practitioner Family; PCP Nurse Practitioner Family
DX: J20.9 Acute bronchitis, unspecified (principal); J01.90 Acute sinusitis, unspecified; R51.9 Headache, unspecified; R05.9 Cough, unspecified; R09.81 Nasal congestion; R07.0 Pain in throat; B34.9 Viral infection, unspecified; F17.210 Nicotine dependence, cigarettes, uncomplicated
CPT/HCPCS: 87636; 87804; 87880; 99212; 99214; G0463

== ENCOUNTER 2023-07-12 09:00 | Day surgery (SDC) | payer MEDICARE, MEDICAID, SELFPAY ==
[2023-07-12 10:07] VITALS: BP 135/76; PULSE 74; RESP 16; TEMP 36.5; O2SAT 100; BMI 48.2
[2023-07-12 10:25] VITALS: BP 135/79; PULSE 64; RESP 18; O2SAT 100
--- NOTE | 2023-07-12 10:43 | EXP.PAIN.PRO ---
Procedure Date: 07/12/23 Time: 10:22 Anesthesiologist:: Govind Gonzales CRNA Complications:: None Pre-procedure Diagnosis:: Left sacroiliitis Post-procedure Diagnosis:: Same Indications for Procedure:: Patient is a pleasant 52-year-old female comes our clinic today for a left sacroiliac joint injection. Patient has difficulty transitioning from sitting to standing due to posterior hip pain on the left side. She rates her pain 7/10. Procedure Details:: Procedure: Left sacroiliac injection under fluoroscopy Informed consent was obtained and the risk and benefits of the procedure were explained to the patient.~ The patient was taken to the procedure room and noninvasive monitors were placed including noninvasive blood pressure cuff and pulse oximeter.~ The patient was placed prone on the procedure table.~ The~ left hip was cleansed using Betadine as a cleansing solution.~ C-arm fluorosocpy was used to view the left SI joint.~ The skin and subcutaneous tissues were anesthetized using Lidocaine 1.5% and a 25-gauge needle.~ After this, a 22-gauge spinal needle was inserted under fluoroscopic guidance into the inferior aspect of the left SI joint.~ Omnipaque dye was injected and a good spread was seen throughout the joint.~ After this, approximately 5 mL of bupivacaine 0.25% and Depo-Medrol 40 mg was incrementally injected into the sacroiliac joint.~ The patient tolerated the procedure well with no complications.~ The patient was observed in the Pain Clinic for a period of 30-45 minutes, then discharged home neurologically intact.~ Plan and Disposition:: Patient was discharged without incident.
[2023-07-12] MEDS: BUPIVACAINE 0.25% 10ML INJ 25 MG IJ (13:32)
[2023-07-12] MEDS: LIDOCAINE 1% 5ML PF VIAL 5 ML (13:33)
[2023-07-12] MEDS: methylPREDNISolone ACETATE 80MG/ML VIAL 80 MG (13:34)
== END 2023-07-12 10:25 | disposition home or self-care (01) ==
PROVIDERS: PCP Nurse Practitioner Family; Visit Provider Nurse Anesthetist, Certified Registered
DX: M46.1 Sacroiliitis, not elsewhere classified (principal)
CPT/HCPCS: 27096; 77002; G0260; J1040

== ENCOUNTER 2023-07-25 12:56 | Outpatient (POV) | payer MEDICARE, MEDICAID, SELFPAY ==
--- NOTE | 2023-07-25 13:37 | A.OFFVIS_ITS ---
[facility] Pain Management SOAP Note Subjective:: Patient is a pleasant 52-year-old female who presents today for follow-up of left SI injection. Today she rates her pain a 0 out of 10. Patient states that she has had 100% relief following this injection and feels like it still helping. Patient does also state when she went for this injection they were able to reprogram her spinal cord stimulator device with additional help for her current pain symptoms. Patient does state that she is doing workup for a total knee replacement currently. Her Ryan has been reviewed and is appropriate. Review of Systems: General: No recent weight changes, no fever, no sleep disturbances Respiratory: No cough, no shortness of air, no recurring pulmonary infections Cardiovascular/peripheral vascular: No chest pain, no palpitations, no edema, no shortness of breath Gastrointestinal: No new onset incontinence, normal bowel movements reported Genitourinary: No new onset incontinence Musculoskeletal: Low back pain Psychiatric: [Normal mood/affect] Neurological: [Denies weakness in extremities], [denies balance issues] Objective:: Physical Exam: General: Alert and oriented x3, no acute distress, pleasant and cooperative Lungs: Respirations even and unlabored, symmetrical chest expansion Eyes: PERRL Musculoskeletal: Flexion and extension of lumbar [spine] somewhat guarded secondary to pain, [antalgic gait noted] Neurological: Speech clear, no gross sensory deficit Assessment:: Degenerative disc disease of lumbar spine with lumbar radiculopathy symptoms, chronic sacroiliitis post right SI stabilization procedure Plan:: Patient is doing well following her injection and does not require any additional injection therapy at this time. Patient will return to clinic in 1 month for follow-up and reevaluation of symptoms. Patient has been instructed to contact the clinic with any concerns before the next appointment. Dr. Fitch has reviewed this note and agrees with this plan of care. This note was dictated using voice recognition software and make contain errors or omissions. [facility] Disclaimer: The information contained in this section may have been updated after the patient was seen, as this information can be updated by other users. Social History Smoking Status: Current every day smoker second hand exposure: No alcohol intake: never substance use type: denies use current occupational status: unemployed Travel in the last 8 weeks: None household members: spouse housing: house current occupation: [employer] current occupational exposures/hazards: No caffeine: Yes
[2023-07-25 13:55] VITALS: BP 124/90; PULSE 77; RESP 18; O2SAT 98; BMI 38.8
== END 2023-07-25 23:59 ==
LOC: SC.PAIN 12:57
PROVIDERS: PCP Nurse Practitioner Family; Visit Provider Nurse Practitioner Family
DX: M51.16 Intervertebral disc disorders with radiculopathy, lumbar region (principal); M46.1 Sacroiliitis, not elsewhere classified; G89.29 Other chronic pain
CPT/HCPCS: 99212; G0463

== ENCOUNTER 2023-08-13 14:06 | Emergency (ER) | payer MEDICARE, MEDICAID, SELFPAY ==
[2023-08-13 14:15] VITALS: BP 129/78; PULSE 60; RESP 22; TEMP 36.6; O2SAT 99; BMI 39.1
--- NOTE | 2023-08-13 14:28 | ED_ITS ---
Discharge Plan Disposition Patient Disposition: Home, Self-Care Condition: Good Prescriptions Prescriptions: New promethazine-DM 6.25-15 mg/5 mL Syrup 5 ml PO Q6H PRN (Reason: Cough) Qty: 240 0RF amoxicillin 875 mg tablet 875 mg PO Q12H Qty: 20 0RF methylprednisolone 4 mg Tablets,Dose Pack 4 mg PO DIRECTED 6 Days Qty: 21 0RF Rx Instructions: Take 1 pack as directed for 6 days guaifenesin [Mucinex] 600 mg tablet extended release 12hr 600 - 1,200 mg PO BIDP PRN (Reason: Congestion) Qty: 30 0RF No Action bupropion HCl 300 MG tablet extended release 24 hr 450 mg PO DAILY lisinopril 10 MG tablet 10 mg PO DAILY oxybutynin chloride 5 MG tablet extended release 24hr 5 mg PO DAILY esomeprazole magnesium 20 MG tablet,delayed release (DR/EC) 20 mg PO BID rosuvastatin 10 MG tablet 20 mg PO HS aspirin 81 mg tablet,delayed release (DR/EC) 81 mg PO DAILY Qty: 10 0RF celecoxib 200 mg capsule 200 mg PO DAILY Patient Comments: TAKE 1 CAPSULE 1 TIME EACH DAY WITH FOOD NEEDED FOR ARTHRITIS PAIN sertraline 50 MG tablet 100 mg PO DAILY cholecalciferol (vitamin D3) 1,000 UNIT capsule 5,000 unit PO DAILY cetirizine 10 MG capsule 10 mg PO DAILY Referrals Follow up/Referrals: Shari Birmingham [Primary Care Provider] - See instructions Activity Restrictions/Add. Instructions Additional Instructions/Restrictions: Drink plenty of fluids. Take tylenol or ibuprofen for pain or fever. Take the medications as directed. Follow up with your regular doctor. GO TO THE ER FOR ANY WORSENING SYMPTOMS Clinical Impressions Clinical Impression: Sinusitis Instructions Patient Instructions: Sinusitis, DI for Sinusitis Discharge ED Provider: Guy Franco [facility] HPI General Stated complaint: sinus pressure, headache, sore throat Time Seen by Provider: 08/13/23 14:28 History of Present Illness Provider Complaint: She states that for the past 2 days she has had headache, sinus congestion, productive cough, and ear pain. She states that she has a history of getting bad sinus infections. Related Data Home Medications Medication Instructions Recorded Confirmed bupropion HCl 300 mg 24 hr tablet, 450 mg PO DAILY DEPRESSION 05/15/17 08/13/23 extended release esomeprazole magnesium 20 mg 20 mg PO BID GERD 05/15/17 08/13/23 tablet,delayed release lisinopril 10 mg tablet 10 mg PO DAILY Hypertension 05/15/17 08/13/23 oxybutynin chloride 5 mg 5 mg PO DAILY BLADDER 05/15/17 08/13/23 tablet,extended release 24 hr rosuvastatin 10 mg tablet 20 mg PO HS Cholesterol 07/28/18 08/13/23 sertraline 50 mg tablet 100 mg PO DAILY Depression 12/09/20 08/13/23 cetirizine 10 mg capsule 10 mg PO DAILY allergies 05/27/21 08/13/23 cholecalciferol (vitamin D3) 25 5,000 unit PO DAILY Supplement 05/27/21 08/13/23 mcg (1,000 unit) capsule celecoxib 200 mg capsule 200 mg PO DAILY 05/11/23 08/13/23 Previous Rx's Medication Instructions Recorded aspirin 81 mg tablet,delayed 81 mg PO DAILY #10 tabs 12/20/22 release amoxicillin 875 mg tablet 875 mg PO Q12H #20 tabs 08/13/23 guaifenesin 600 mg tablet, 600 - 1,200 mg (1 - 2 x 600 mg) PO 08/13/23 extended release 12 hr (Mucinex) BIDP PRN Congestion #30 tabs methylprednisolone 4 mg tablets in 4 mg PO DIRECTED 6 days #21 tabs 08/13/23 a dose pack promethazine-DM 6.25 mg-15 mg/5 mL 5 ml PO Q6H PRN Cough #240 mL 08/13/23 oral syrup Allergies Allergy/AdvReac Type Severity Reaction Status Date / Time ketorolac [From Toradol] Allergy ITCHING Verified 08/13/23 14:32 [facility] Disclaimer: The information contained in this section may have been updated after the patient was seen, as this information can be updated by other users. 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/hazards: No caffeine: Yes ROS Obtained: Yes All systems reviewed & no additional complaints except as documented Constitutional Constitutional: Reports poor appetite Eyes Eyes: Reports system reviewed and no additional complaints, except as documented ENT Ears, Nose, Mouth, and Throat: Reports as per HPI Cardiovascular Cardiovascular: Reports system reviewed and no additional complaints, except as documented and Denies chest pain Respiratory Respiratory: Denies shortness of breath, Denies chest congestion, Reports cough, Denies stridor and Denies wheezing Gastrointestinal Gastrointestingal: Reports system reviewed and no additional complaints, except as documented; Denies abdominal pain, diarrhea or vomiting Musculoskeletal Musculoskeletal: Reports system reviewed and no additional complaints, except as documented and Denies arthralgias Integumentary/Breasts Skin/Breast: Reports system reviewed and no additional complaints, except as documented and Denies rash Neurologic Neurologic: Denies paresthesias Allergic/Immunologic Allergic/Immunologic: Denies wheezing Physical Exam General General appearance: alert and in no apparent distress Eye Eye exam: Present normal appearance, PERRL and EOMI ENT ENT exam: Present mucous membranes moist and normal external ear exam Expanded ENT Exam External ear exam: Present normal external inspection TM/Canal exam: Bilateral TM: erythema and bulging Nose exam: Absent sinus tenderness Nasal speculum exam: Bilateral: normal Mouth exam: Present normal external inspection; Absent drooling Teeth exam: Present normal inspection Throat exam: Present tonsillar erythema and tonsillomegaly Neck Neck exam: Present normal inspection, full ROM and trachea midline; Absent tenderness, lymphadenopathy or thyromegaly Chest Chest inspection: Present normal inspection and symmetric chest wall rise; Absent tenderness or rash Respiratory Respiratory exam: Present normal lung sounds bilaterally; Absent respiratory distress, wheezes, stridor or accessory muscle use Cardiovascular Cardiovascular exam: Present regular rate, normal rhythm and normal heart sounds Abdominal Exam Abdominal exam: Present soft; Absent distention, tenderness, guarding, rebound or rigidity Extremities Exam Extremities exam: Present normal inspection, full ROM and normal capillary refill; Absent tenderness or calf tenderness Back Exam Back exam: Present normal inspection and full ROM; Absent tenderness Neurological Exam Neurological exam: Present alert and oriented X3 Psychiatric Psychiatric exam: Present normal affect and normal mood Skin Skin exam: Present warm, dry, intact and normal color Lymphatic Lymphatic Findings: no adenopathy Medical Decision Making Medical Records Medical records reviewed: No I reviewed the patient's medical records. Ryan Inquiry Pt receiving controlled substance: No Lab Data Lab results reviewed: Yes I reviewed the patient's lab results.
[2023-08-13 14:50] LABS: UTC Influenza A Antigen Negative (Negative); UTC Strep Screen (Rapid) Negative (Negative)
[2023-08-13 14:51] LABS: UTC Influenza B Antigen Negative (Negative)
[2023-08-13] MEDS: DEXAMETHASONE 4MG/ML 1ML VIAL 8 MG IM (14:54)
[2023-08-13 15:09] VITALS: BP 129/78; PULSE 60; RESP 22; TEMP 36.6; O2SAT 99
== END 2023-08-13 15:09 | disposition home or self-care (01) ==
PROVIDERS: Emergency Provider Nurse Practitioner Family; PCP Nurse Practitioner Family
DX: J01.90 Acute sinusitis, unspecified (principal); R51.9 Headache, unspecified; R07.0 Pain in throat; R09.81 Nasal congestion; H92.03 Otalgia, bilateral; F17.210 Nicotine dependence, cigarettes, uncomplicated
CPT/HCPCS: 87804; 87880; 96372; 99212; 99214; G0463

== ENCOUNTER 2024-01-27 11:51 | Emergency (ER) | payer MEDICARE, MEDICAID, SELFPAY ==
--- NOTE | 2024-01-27 11:57 | XR_ITS ---
FINAL REPORT CLINICAL HISTORY: pain COMPARISON: 12/20/2022 FINDINGS: RIGHT KNEE 3 views of the right knee were obtained. There is no acute fracture or dislocation. There is a healed fracture deformity of the proximal fibula. Tiny posterior patellar osteophytes are present. Visualized joint spaces are normally aligned. Soft tissues are unremarkable. IMPRESSION: Healed fracture deformity of the proximal fibula, no acute bony abnormality. Reviewed, Interpreted and Dictated by Diego Tejeda MD Transcribed by Gbariella Draper Authenticated and [facility]
[2024-01-27 12:06] VITALS: BP 120/82; PULSE 80; RESP 20; TEMP 36.7; O2SAT 98; BMI 37.9
--- NOTE | 2024-01-27 12:09 | ED_ITS ---
Discharge Plan Disposition Patient Disposition: Home, Self-Care Condition: Good Prescriptions Prescriptions: No Action bupropion HCl 300 MG tablet extended release 24 hr 450 mg PO DAILY lisinopril 10 MG tablet 10 mg PO DAILY oxybutynin chloride 5 MG tablet extended release 24hr 5 mg PO DAILY esomeprazole magnesium 20 MG tablet,delayed release (DR/EC) 20 mg PO BID rosuvastatin 10 MG tablet 20 mg PO HS aspirin 81 mg tablet,delayed release (DR/EC) 81 mg PO DAILY Qty: 10 0RF celecoxib 200 mg capsule 200 mg PO DAILY Patient Comments: TAKE 1 CAPSULE 1 TIME EACH DAY WITH FOOD NEEDED FOR ARTHRITIS PAIN promethazine-DM 6.25-15 mg/5 mL Syrup 5 ml PO Q6H PRN (Reason: Cough) Qty: 240 0RF amoxicillin 875 mg tablet 875 mg PO Q12H Qty: 20 0RF methylprednisolone 4 mg Tablets,Dose Pack 4 mg PO DIRECTED 6 Days Qty: 21 0RF Rx Instructions: Take 1 pack as directed for 6 days guaifenesin [Mucinex] 600 mg tablet extended release 12hr 600 - 1,200 mg PO BIDP PRN (Reason: Congestion) Qty: 30 0RF sertraline 50 MG tablet 100 mg PO DAILY cholecalciferol (vitamin D3) 1,000 UNIT capsule 5,000 unit PO DAILY cetirizine 10 MG capsule 10 mg PO DAILY Referrals Follow up/Referrals: Shari Birmingham [Primary Care Provider] - See instructions Activity Restrictions/Add. Instructions Additional Instructions/Restrictions: *RICE, Rest the extremity, Ice 15-20 minutes 3-4 times daily, Compress- wear the gino wrap as discussed as much as possible to help reduce swelling and pain, Elevate the extremity when at rest *Knee immobilizer is for support and help control swelling, use it except in the shower. Be sure that is not to tight but not to loose either Use Crutches to get around *Elevate when resting? *Ibuprofen 600-800mg every 6-8 hours as needed for pain an inflammation. If need something more can take Tylenol in between doses of Ibuprofen to help Immediately follow up with your family doctor for new or worsening of symptoms, or no noticeable improvement over the next 3-5 days You said you have an upcoming appointment with Orthopedics, Call and see if you can get in earlier with Orthopedics for further evaluation and testing Clinical Impressions Clinical Impression: Knee sprain Qualifiers: Encounter type: initial encounter Involved ligament of knee: unspecified ligament Laterality: right Qualified Code(s): S83.91XA - Sprain of unspecified site of right knee, initial encounter Instructions Patient Instructions: How to Use Crutches, DI for Knee Sprain, How to Use a Knee Immobilizer Print Language Print Language: [place] Discharge ED Provider: Martha Amezcua [facility] General Stated complaint: AO 01/25-Pain in R knee Mode of Arrival: Ambulatory Source of Information: Patient Time Seen by Provider: 01/27/24 12:09 Description of Symptoms (Recalled from Triage Doc. by RN): RIGHT KNEE INJURY- PULLED DOWN TO THE GROUND BY HER DOG. / PAIN, TENDERNESS AND SLIGHT SWELLING HEENT Symptoms (Recalled from RN notes): No Resp Symptoms (Recalled from RN notes): No Skin Symptoms (Recalled from RN notes): No MS Symptoms (Recalled from RN notes): Yes Functional Status (Recalled from RN notes): WALKING IMPAIRED D/T PAIN History of Present Illness Provider Complaint: Patient states that she was walking her dog last night when it jerked her causing her to twist her right knee States that since then she has been having pain in her right knee with walking and movement Related Data Home Medications ?Medication ?Instructions ?Recorded ?Confirmed bupropion HCl 300 mg 24 hr tablet, 450 mg PO DAILY DEPRESSION 05/15/17 08/13/23 extended release esomeprazole magnesium 20 mg 20 mg PO BID GERD 05/15/17 08/13/23 tablet,delayed release lisinopril 10 mg tablet 10 mg PO DAILY Hypertension 05/15/17 08/13/23 oxybutynin chloride 5 mg 5 mg PO DAILY BLADDER 05/15/17 08/13/23 tablet,extended release 24 hr rosuvastatin 10 mg tablet 20 mg PO HS Cholesterol 07/28/18 08/13/23 sertraline 50 mg tablet 100 mg PO DAILY Depression 12/09/20 08/13/23 cetirizine 10 mg capsule 10 mg PO DAILY allergies 05/27/21 08/13/23 cholecalciferol (vitamin D3) 25 5,000 unit PO DAILY Supplement 05/27/21 08/13/23 mcg (1,000 unit) capsule celecoxib 200 mg capsule 200 mg PO DAILY 05/11/23 08/13/23 Previous Rx's ?Medication ?Instructions ?Recorded aspirin 81 mg tablet,delayed 81 mg PO DAILY #10 tabs 12/20/22 release amoxicillin 875 mg tablet 875 mg PO Q12H #20 tabs 08/13/23 guaifenesin 600 mg tablet, 600 - 1,200 mg (1 - 2 x 600 mg) PO 08/13/23 extended release 12 hr (Mucinex) BIDP PRN Congestion #30 tabs methylprednisolone 4 mg tablets in 4 mg PO DIRECTED 6 days #21 tabs 08/13/23 a dose pack promethazine-DM 6.25 mg-15 mg/5 mL 5 ml PO Q6H PRN Cough #240 mL 08/13/23 oral syrup Allergies Allergy/AdvReac Type Severity Reaction Status Date / Time ketorolac [From Toradol] Allergy ITCHING Verified 08/13/23 14:32 Worker's Comp Is this a Worker's Comp case?: No [facility] Disclaimer: The information contained in this section may have been updated after the patient was seen, as this information can be updated by other users. Social History Smoking Status: Current every day smoker second hand exposure: No alcohol intake: never substance use type: denies use current occupational status: unemployed Travel in the last 8 weeks: None household members: spouse housing: house current occupation: [employer] current occupational exposures/hazards: No caffeine: Yes ROS Obtained: Yes All systems reviewed & no additional complaints except as documented and Yes Systems reviewed as appropriate & no additional complaints except as documented Constitutional Constitutional: Reports system reviewed and no additional complaints, except as documented and Reports as per HPI Cardiovascular Cardiovascular: Reports system reviewed and no additional complaints, except as documented and Reports as per HPI Respiratory Respiratory: Reports system reviewed and no additional complaints, except as documented and Reports as per HPI Gastrointestinal Gastrointestingal: Reports system reviewed and no additional complaints, except as documented and as per HPI Musculoskeletal Musculoskeletal: Reports system reviewed and no additional complaints, except as documented, Reports as per HPI and Reports other (pain and swelling right knee after twisting it last night) Physical Exam General General appearance: alert and in no apparent distress Respiratory Respiratory exam: Present normal lung sounds bilaterally; Absent respiratory distress or wheezes Cardiovascular Cardiovascular exam: Present regular rate, normal rhythm and normal heart sounds Expanded Lower Extremity Exam Right: Leg image: 2 1. Reports pain, tenderness and swelling since twisting it last night Knee exam: Present tenderness and swelling Neurological Exam Neurological exam: Present alert, oriented X3 and normal gait Medical Decision Making Medical Records Screening: Per USPSTF and CDC recommendations, given the prevalence of disease in our region, it is our hospital?s policy to screen for HIV and viral Hepatitis for all patients aged 18 and over and those with ongoing risk factors. Ryan Inquiry Pt receiving controlled substance: No Ryan was queried for this patient: No Vital Signs: 01/27/24 12:06 Temperature 98.0 F Temperature Source Oral Pulse Rate [Left Brachial] 80 Respiratory Rate 20 Blood Pressure [Left Arm] 120/82 Blood Pressure Mean [Left Arm] 94 02 Sat by Pulse Oximetry 98 Orders (Tests/Meds): ORDERS Category Date Time Status Knee XR right 3 views [XR knee RT 3V] Stat Exams 01/27/24 11:57 Ordered Radiology Data #1: Image(s): Knee Image Reviewed: Yes I have reviewed radiologist's interpretation IMPRESSION: Healed fracture deformity of the proximal fibula, no acute bony abnormality. Procedures Orthopedic Splinting/Casting Injury #1: Side: right Lower Extremity Injury Location: knee Lower Extremity Immobilizer: knee immobilizer Other Orthopedic Equipment: crutches Post Cast/Splinting Neuro Status: intact and no change Post Cast/Splinting Vasc Status: intact and no change
[2024-01-27 13:48] VITALS: BP 120/82; PULSE 80; RESP 20; TEMP 36.7
== END 2024-01-27 13:50 | disposition home or self-care (01) ==
PROVIDERS: Emergency Provider Nurse Practitioner; PCP Nurse Practitioner Family
DX: S83.91XA Sprain of unspecified site of right knee, initial encounter (principal); F17.200 Nicotine dependence, unspecified, uncomplicated; X50.1XXA Overexertion from prolonged static or awkward postures, initial encounter; Y93.K1 Activity, walking an animal
CPT/HCPCS: 73562; 99212; 99214; G0463